=== PATIENT | male | born 1955 | race Caucasian/White ===

== ENCOUNTER 2016-08-18 15:15 | Emergency (ER) | payer OTHER, MEDICAID ==
--- NOTE | 2016-08-18 15:20 | EDPHY ---
H & P Time Seen by Provider: 08/18/16 15:17 - Medical/Surgical History Hx Asthma: No Hx Chronic Respiratory Disease: No Hx Diabetes: Yes Hx Cardiac Disease: Yes Hx Renal Disease: No Hx Cirrhosis: No Hx Alcoholism: No Hx HIV/AIDS: No Hx Splenectomy or Spleen Trauma: No Other PMH: depression, dm, ECT threapy - Social History Smoking Status: Never smoked Constitutional: Initial Vital Signs Temperature (C) 36.2 C 08/18/16 15:36 Heart Rate 72 08/18/16 15:36 Respiratory Rate 18 08/18/16 15:36 Blood Pressure 83/56 L 08/18/16 15:36 O2 Sat (%) 86 L 08/18/16 15:36 O2 Delivery Mode Nasal Cannula O2 (L/minute) 3.5 Allergies/Adverse Reactions: vancomycin Allergy (Verified 05/16/16 15:55) Fever Home Medications: Medication Instructions Recorded Carvedilol [Coreg (*)] 12.5 mg PO BIDMEAL 03/30/16 FLUoxetine [Prozac 20 MG (*)] 60 mg PO DAILY 03/30/16 Furosemide [Lasix 40 MG (*)] 40 mg PO DAILY 03/30/16 Gabapentin [Neurontin 300 MG (*)] 1,200 mg PO HS 03/30/16 Insulin Glargine [Lantus 100 45 units SC BID 03/30/16 UNITS/ML (*)] Insulin Lispro [humALOG LISPRO 100 10 unit SC TIDMEAL 03/30/16 units/ml (*)] Lisinopril [Zestril 20 mg (*)] 20 mg PO HS 03/30/16 Mirtazapine [Remeron] 15 mg PO HS 03/30/16 Omeprazole [Prilosec 20 mg] 20 mg PO HS 03/30/16 Potassium Cl [Klor-Con 20 meq (*)] 20 meq PO DAILY 03/30/16 Pregabalin [Lyrica 75mg (*)] 75 mg PO BID 03/30/16 Simvastatin [Zocor] 20 mg PO HS 03/30/16 amLODIPine BESYLATE [Norvasc 10 mg 10 mg PO DAILY 03/30/16 (*)] traZODone [traZODONE 100MG (*)] 100 mg PO HS 03/30/16 Gabapentin [Neurontin 400 MG (*)] 800 mg PO TIDMEAL #0 cap 04/02/16 oxyCODONE/APAP 5/325 [Percocet 1 - 2 tab PO Q4HRS PRN #20 tab 04/02/16 5/325 (*)] Doxycycline Hyclate [Vibramycin 100 mg PO BID #0 capsule 04/06/16 100 MG (*)] Penicillin V Potassium [Pen Vk 500 mg PO BID #0 tab 04/06/16 500mg (*)] Hydrocodone/APAP 5/325 [Gaylord 1 - 2 each PO Q4-6PRN PRN #20 tab 08/18/16 5/325] Medical Decision Making ED Course/Re-evaluation: CHIEF COMPLAINT: Back pain, "I can't hardly walk" HISTORY OF PRESENT ILLNESS: The patient is a 61 y/o male with a history of several comorbidities arriving via EMS complaining of back pain while walking worsening today. He has a history of diabetes, heart disease, kidney failure, and worsening neuropathy. Per EMS, his case hardener called 911 today because he seemed to be having cognitive difficulty and could not remember the name of his case hardener. EMS reports he has been alert and oriented with no confusion throughout their contact with him. Through my assessment he is also completely oriented. He complains today of worsening but intermittent back pain particularly with walking and states he cannot get around at home now. He is able to bear weight and denies radiculopathy, weakness, or paresthesias. REVIEW OF SYSTEMS: A 10 point review of systems was performed and is negative with the exception of the elements mentioned in the history of present illness. PHYSICAL EXAM: HR, BP, O2 Sat, RR. Temp noted General Appearance: Alert, well hydrated, appropriate, and chronically ill- appearing. Head: Atraumatic without scalp tenderness or obvious injury Eyes: Pupils equal, round, reactive to light and accommodation, EOMI, no trauma , no injection. Ears: Clear bilaterally, no perforation, normal landmarks Nose: Atraumatic, no rhinorrhea, clear. Throat: There is no erythema or exudates, no lesions, normal tonsils, mucus membranes moist. Neck: Supple, nontender, no lymphadenopathy. Respiratory: No retractions, no distress, no wheezes, and no accessory muscle use. Lungs are clear to auscultation bilaterally. Cardiovascular: Regular rate and rhythm, no murmurs, rubs, or gallops. Bilateral dorsalis pedis pulses intact. Good capillary refill all extremities. Gastrointestinal: Abdomen is soft, nontender, non-distended, no masses, no rebound, no guarding, no peritoneal signs. Musculoskeletal: Normal active ROM of all extremities, atraumatic. Multiple bilateral toe amputations with baseline neuropathy in both feet. Neurological: Alert, appropriate, and interactive. The patient has normal DTRs and non-focal cranial nerves, motor, sensory, and cerebellar exam. Skin: No rashes, good turgor, no nodules on palpation. Past medical history: Diabetes, heart disease, AL, kidney failure, neuropathy Past surgical history: Multiple toe amputations Family history: noncontributory Social history: Living at respite home waiting for admission to SNF DIAGNOSTICS/PROCEDURES/CRITICAL CARE TIME: Study: CT of the Lumbar Spine without IV contrast Indication: pain when walking Results: CT scan of the lumbar spine was obtained. The results of the study are acute L2 compression fracture. The study was read by the radiologist, Dr. Silverio. I viewed the images myself on the PACS system. The 12 lead EKG was interpreted by myself. Sinus rhythm rate 83. See hard copy and/or "tracemaster" electronic copy for interpretation. DIFFERENTIAL DIAGNOSIS: The differential diagnosis for the patient's back pain included but was not limited to musculoskeletal pain, epidural abscess, herniated disk, spinal fracture, and intra-abdominal causes including urinary system. MEDICAL DECISION MAKING: This is a chronically-ill 61 y/o male presenting with intermittent lumbar pain aggravated by walking. He a history of worsening diabetic neuropathy and is waiting for another toe amputation. His pain today is causing difficulty walking , which is the only reason he agreed to come to the ED today. His case hardener was concerned patient was confused, but patient has been alert and oriented throughout assessment. He is neurovascularly intact on exam. Plan for lumbar CT scan to rule out acute process. CT shows lumbar compression fracture without complication. Patient will be discharged with script for Gaylord and referral to neurosurgery. He is comfortable with this plan. Return precautions given. Departure - Departure Disposition: Home, Routine, Self-Care Clinical Impression: Compression fracture of L2 Condition: Good Instructions: Vertebral Compression Fracture (ED) Additional Instructions: 1. Take Gaylord as prescribed when needed for pain. 2. Follow up with Dr. Espinoza, neurosurgeon, next week. 3. Return to the ED for worsening of condition including weakness or numbness in your legs or genitals. Referrals: Patient,NotPresent [Unknown] - As per Instructions Randall Espinoza MD [Medical Doctor] - As per Instructions Prescriptions: Hydrocodone/APAP 5/325 [Gaylord 5/325] 1 - 2 each PO Q4-6PRN PRN #20 tab PRN Reason: Pain, Moderate Report Scribed for: Tom White Report Scribed by: Lacie Choudhary Date of Report: 08/18/16 Time of Report: 16:08
--- NOTE | 2016-08-18 15:28 | CPEKG ---
Heart Rate: 83 RR Interval: 723 P-R Interval: 192 QRSD Interval: 96 QT Interval: 376 QTC Interval: 442 P [place]: 41 QRS [place]: -13 T Wave [place]: 34 EKG Severity - NORMAL ECG - EKG Impression: SINUS RHYTHM Electronically Signed By: Mariela Galeana 18-Aug-2016 15:34:55
[2016-08-18 15:48] VITALS: RESP 18
[2016-08-18 16:08] VITALS: PULSE 78
[2016-08-18 17:26] VITALS: BP 101/62; TEMP 97.7; O2SAT 92
== END 2016-08-18 17:37 | disposition home or self-care (01) ==
LOC: EDUNIT#
DX: M48.56XA Collapsed vertebra, not elsewhere classified, lumbar region, initial encounter for fracture (principal); E11.9 Type 2 diabetes mellitus without complications; Z79.4 Long term (current) use of insulin

== ENCOUNTER 2016-08-19 01:06 | Inpatient (IN) | payer OTHER, MEDICAID ==
[2016-08-19] MEDS ORDERED: INSULIN GLARGINE 100 UNITS/ML SYRINGE SC ONE (03:00)
--- NOTE | 2016-08-19 06:54 | EDPHY ---
H & P Stated Complaint: sent from eps because they can't monitor sugars while looking for placement Time Seen by Provider: 08/19/16 01:19 HPI/ROS: HPI The patient presents with hyperglycemia. He has a history of diabetes and is on insulin. He normally checks his sugar several times a day. He is currently staying at the [facility] while he is awaiting placement at [facility]. He was recently admitted and discharged from [facility]. He is sent here from his mental health facility because he does not have any test strips with him to check his blood sugar and they are not able to check it for him. He denies any polyuria, polydipsia. He has not had any abdominal pain , nausea or vomiting. REVIEW OF SYSTEMS Constitutional: No fever, no chills. Eyes: No discharge. ENT: No sore throat. Cardiovascular: No chest pain, no palpitations. Respiratory: No cough, no shortness of breath. Gastrointestinal: No abdominal pain, no vomiting. Genitourinary: No hematuria. Musculoskeletal: No back pain. Skin: No rashes. Neurological: No headache. PMHx: Depression, type 2 diabetes on insulin, GERD Soc Hx: Currently awaiting placement at [facility] PHYSICAL General Appearance: Alert, no distress Eyes: Pupils equal and round no pallor or injection ENT, Mouth: Mucous membranes moist Respiratory: There are no retractions, lungs are clear to auscultation Cardiovascular: Regular rate and rhythm Gastrointestinal: Abdomen is soft and non-tender, no masses, bowel sounds normal Neurological: A&O, moves all extremities Skin: Warm and dry, no rashes Musculoskeletal: Neck is supple non tender Extremities: symmetrical, full range of motion Psychiatric: Patient is oriented X 3, there is no agitation Source: Patient, EMS Exam Limitations: No limitations - Personal History Current Tetanus/Diphtheria Vaccine: Yes Current Tetanus Diphtheria and Acellular Pertussis (TDAP): Yes - Medical/Surgical History Hx Asthma: No Hx Chronic Respiratory Disease: No Hx Diabetes: Yes Hx Cardiac Disease: Yes Hx Renal Disease: No Hx Cirrhosis: No Hx Alcoholism: No Hx HIV/AIDS: No Hx Splenectomy or Spleen Trauma: No Other PMH: depression, dm, ECT threapy, gerd - Social History Smoking Status: Never smoked Constitutional: Initial Vital Signs Temperature (C) 36.8 C 08/19/16 01:10 Heart Rate 73 08/19/16 01:10 Respiratory Rate 18 08/19/16 01:10 Blood Pressure 114/58 L 08/19/16 01:10 O2 Sat (%) 85 L 08/19/16 01:10 O2 Delivery Mode Nasal Cannula O2 (L/minute) 2 Allergies/Adverse Reactions: vancomycin Allergy (Verified 08/19/16 01:22) Fever Home Medications: Medication Instructions Recorded Carvedilol [Coreg (*)] 12.5 mg PO BIDMEAL 03/30/16 FLUoxetine [Prozac 20 MG (*)] 60 mg PO DAILY 03/30/16 Furosemide [Lasix 40 MG (*)] 40 mg PO DAILY 03/30/16 Gabapentin [Neurontin 300 MG (*)] 1,200 mg PO HS 03/30/16 Insulin Glargine [Lantus 100 45 units SC BID 03/30/16 UNITS/ML (*)] Insulin Lispro [humALOG LISPRO 100 10 unit SC TIDMEAL 03/30/16 units/ml (*)] Lisinopril [Zestril 20 mg (*)] 20 mg PO HS 03/30/16 Mirtazapine [Remeron] 15 mg PO HS 03/30/16 Omeprazole [Prilosec 20 mg] 20 mg PO HS 03/30/16 Potassium Cl [Klor-Con 20 meq (*)] 20 meq PO DAILY 03/30/16 Pregabalin [Lyrica 75mg (*)] 75 mg PO BID 03/30/16 Simvastatin [Zocor] 20 mg PO HS 03/30/16 amLODIPine BESYLATE [Norvasc 10 mg 10 mg PO DAILY 03/30/16 (*)] traZODone [traZODONE 100MG (*)] 100 mg PO HS 03/30/16 Gabapentin [Neurontin 400 MG (*)] 800 mg PO TIDMEAL #0 cap 04/02/16 oxyCODONE/APAP 5/325 [Percocet 1 - 2 tab PO Q4HRS PRN #20 tab 04/02/16 5/325 (*)] Doxycycline Hyclate [Vibramycin 100 mg PO BID #0 capsule 04/06/16 100 MG (*)] Penicillin V Potassium [Pen Vk 500 mg PO BID #0 tab 04/06/16 500mg (*)] Hydrocodone/APAP 5/325 [[place] 1 - 2 each PO Q4-6PRN PRN #20 tab 08/18/16 5/325] Medical Decision Making Differential Diagnosis: This is a 61-year-old male with history of depression and diabetes who is brought in by ambulance from [facility]. He is awaiting placement at [facility], however is without his test strips to check his blood sugar with his glucometer, thus he is sent in. He denies any acute complaints. Glucose was checked and is 171. He will be given his nightly Lantus dose of 45 units. In the morning, we plan to discharge him back to the facility with test strips. He is in agreement with this plan. - Data Points Laboratory Results: 08/19/16 02:38 POC Hgb 13.6 gm/dL L gm/dL (14.5-17.3) POC Hct 40 % L % (42.8-50.6) POC Sodium 131 mEq/L L mEq/L (134-144) POC Potassium 6.1 mEq/L H mEq/L (3.3-5.0) POC Chloride 99 mEq/L mEq/L (96-108) POC BUN 64 mg/dL H mg/dL (7-23) POC Creatinine 4.2 mg/dL H mg/dL (0.8-1.5) POC Glucose 177 mg/dL H mg/dL (70-100) Medications Given: Discontinued Medications Insulin Glargine (Lantus Syringe) 45 units SC EDNOW ONE Stop: 08/19/16 03:01 Last Admin: 08/19/16 03:18 Dose: 45 units Point of Care Test Results: 08/19/16 02:38 POC Sodium 131 L POC Potassium 6.1 H POC Chloride 99 POC BUN 64 H POC Creatinine 4.2 H POC Glucose 177 H Departure - Departure Disposition: Other Psych, Not [place] Clinical Impression: Hyperglycemia Diabetes mellitus Qualifiers: Diabetes mellitus type: type 2 Diabetes mellitus complication status: with unspecified complications Condition: Good Instructions: Diabetic Hyperglycemia (ED) Additional Instructions: Please return to the emergency room if your worse in any way.
[2016-08-19] MEDS ORDERED: NS 1,000 ML IV ONE (08:14)
[2016-08-19] MEDS ORDERED: NS 1,000 ML BAG *FOR SEPSIS ORDER SET ONLY IV ONE (08:26)
[2016-08-19 08:39] LABS: % IMMATURE GRANULYOCYTES 0.3 % (0.0-1.1); ABSOLUTE IMMATURE GRANULOCYTES 0.03 10^3/uL (0.00-0.10); ADD DIFF? NO; ADD MORPH? NO; ADD SCAN? NO; ATYPICAL LYMPHOCYTE FLAG 0 (0-99); FRAGMENT RBC FLAG 20 (0-99); HEMATOCRIT 35.5 % (40.0-51.0); HEMOGLOBIN 11.4 g/dL (13.7-17.5); LEFT SHIFT FLG 0 (0-99); LIPEMIA HEMOLYSIS FLAG 80 (0-99); MEAN CELL HEMOGLOBIN CONCENTR. 32.1 g/dL (32.4-36.7); MEAN CELL VOLUME 80.9 fL (81.5-99.8); MEAN PLATELET VOLUME 12.6 fL (8.7-11.7); PLATELET CLUMPS FLAG 0 (0-99); PLATELET COUNT 214 10^3/uL (150-400); RED BLOOD CELL COUNT 4.39 10^6/uL (4.40-6.38); RED CELL DISTRIBUTION WIDTH 16.6 % (11.5-15.2)
[2016-08-19 08:44] LABS: APTT 24.1 SEC (23.0-38.0); INR 1.1 (0.83-1.16); PROTIME(PATIENT) 14.1 SEC (12.0-15.0)
[2016-08-19 08:45] LABS: ANION GAP 13 mEq/L (8-16); BILIRUBIN,TOTAL 1.1 mg/dL (0.1-1.4); CALCIUM 8.4 mg/dL (8.5-10.4); CARBON DIOXIDE 21 mEq/l (22-31); CHLORIDE 97 mEq/L (97-110); CREATININE 4.5 mg/dL (0.7-1.3); GLOMERULAR FILTRATION RATE 13; GLUCOSE 169 mg/dL (70-100); POTASSIUM 5.4 mEq/L (3.5-5.2); SODIUM 131 mEq/L (134-144)
[2016-08-19] MEDS ORDERED: ACETAMINOPHEN 325 MG TAB PO PRN (11:25)
[2016-08-19] MEDS ORDERED: ONDANSETRON 4 MG/2 ML VIAL IVP PRN (11:25)
[2016-08-19] MEDS ORDERED: ONDANSETRON DISINTEGRATING 4 MG TAB PO PRN (11:25)
[2016-08-19] MEDS ORDERED: OXYCODONE HCL 10 MG PO PRN (11:27)
[2016-08-19] MEDS ORDERED: INSULIN LISPRO 100 UNIT/ML SC PRN (11:27)
[2016-08-19] MEDS ORDERED: NS 1,000 ML IV SCH (11:30)
[2016-08-19] MEDS ORDERED: INSULIN REGULAR HUMAN 100 UNIT/ML ONE (12:14)
--- NOTE | 2016-08-19 12:15 | GHP ---
[f rep st] HISTORY AND PHYSICAL DATE OF ADMISSION: 08/19/2016 CHIEF COMPLAINT: Hypotension and acute renal failure. HISTORY OF PRESENT ILLNESS: This is a 61-year-old male, who has a history of insulin-dependent type 2 diabetes as well as chronic osteomyelitis of right 2nd toe. He was admitted to the hospital in [facility] of last year with osteomyelitis of the right great toe, which was amputated. He has been fol lowing with Infectious Disease and Podiatry and there is talk about possibly amputating the 2nd toe. He is however not on any antibiotics currently. He also has a history of bipolar and severe depre ssion and has been in [place] for several weeks. He states there he started developing fidencio e lower extremity edema the last few days he was there. He was then sent to respite care and is isak olga lidia for admission to [facility] but they did not have any diabetic supplies and thus, he came to the emergency department. He was being monitored overnight before we could get him to [facility] but this morning his blood pressure was low in the 70s and his oxygen saturation was also a little bit low. Labs were then drawn and his creatinine was found to be 4.5. His last creatinine actuall y a week at 1.0. The patient does not endorse any problems urinating although does notice that his urine is quite dark. He has not had any nausea, vomiting, or diarrhea. He has been eating normally . He has had no new medications. He denies any over sedation from the chronic narcotics. He has n ot had any fevers or chills or dysuria. No chest pain or shortness of breath. REVIEW OF SYSTEMS: A 10-point review of systems was obtained and negative. PAST MEDICAL HISTORY: 1. Type 2 diabetes, insulin dependent. 2. Recent osteomyelitis of right great toe and current osteomyelitis of right 2nd toe. 3. Peripheral neuropathy. 4. Chronic pain on chronic pain medications. 5. Severe depression and bipolar with status post recent ECT treatment which has been very helpful. 6. History of hypertension. FAMILY HISTORY: Diabetes. SOCIAL HISTORY: Again was going to respite care after [facility], was going to go to [facility]. He did recently move here from [place]. No smoking. PHYSICAL EXAM: VITAL SIGNS: Afebrile, blood pressure when he initially presented was 114/58, has g one down to 75/43, is now back up to 100. Heart rate is 62. Oxygen saturation 80% on room air 94% on 2 L. IN GENERAL: The patient is well developed, no apparent distress. HEENT: Nonicteric sclerae . Extraocular movements intact. Moist mucous membranes. NECK: Supple. No thyromegaly. LUNGS: Good effort. Decreased breath sounds. Clear to auscultation bilaterally. CARDIOVASCULAR: Regular rate and rhythm. No murmurs, gallops. ABDOMEN: Positive bowel sounds. Soft, nontender, nondiste nded. No hepatosplenomegaly. EXTREMITIES: No clubbing, cyanosis. There is 1+ pedal edema. Right 2nd toe has some erythema at the tip but not spreading in any kind of way. NEUROLOGIC: Alert and oriented x3. Moving all 4 extremities equally. PSYCH: Normal mood and affect. LABORATORY DATA: Sodium 131, potassium 5.4, BUN 65, creatinine is 4.5. Lactic acid is normal. Whi te count 10, hemoglobin 11, platelets are 214. Chest x-ray, personally reviewed and interpreted is negative. ASSESSMENT: This is a 61-year-old male, who was admitted to the emergency department because of soc ial reasons and found to be hypotensive and in acute renal failure. PLAN: 1. Acute renal failure. I am uncertain of the cause at this time. He is on several blood pressure medicines and an WINNIE inhibitor. I wonder if his blood pressure may be a bit too low lately and he had some type of hemodynamic insult to his kidneys. He is on some narcotics and possibly could have overdosed and elevated his CPK. We will check a CPK. He has gotten almost 4 L of fluid and I am g oing to recheck his creatinine currently. Also will continue on maintenance IV fluids until the mor yeison. We will recheck his creatinine currently and see where we are at. If his creatinine is not i mproving by tomorrow, we will get Nephrology involved. Also will be getting a renal ultrasound and a urinalysis as well as urine lytes. 2. Hypotension. Pressure is now better with some fluid. We will continue to monitor. Hold his an tihypertensives. 3. Hypoxia, seems to correct quite easily with oxygen. The report hypoxia could be related to his hypotension and now it is better. Chest x-ray is negative. Again will continue to monitor this. 4. Type 2 diabetes. We will continue insulin. 5. Chronic osteomyelitis of 2nd toe. He does not seem to have spreading infection. Blood cultures are pending. We will hold off on any antibiotics. 6. Peripheral neuropathy. We will hold Neurontin until creatinine gets a little bit better. Claudette nue oxycodone as needed. 7. Depression, this appears to be better after recent ECT treatment. 8. Admission. Patient will be admitted under full admission status. Case discussed with ER physic umesh. Old records reviewed and summarized in the HPI. Chest x-ray personally reviewed and interpret ed. /[id number]/MODL
[2016-08-19] MEDS: INSULIN LISPRO 100 UNIT/ML SC SCH ×2 (12:31→18:19)
[2016-08-19 12:47] LABS: CK-MB INTERPRETATION NEGATIVE (NEGATIVE)
[2016-08-19 13:10] LABS: CREATINE KINASE-MB FRACTION 4.94 ng/mL (0-3.19)
--- NOTE | 2016-08-19 14:40 | GCON ---
[f rep st] CONSULTATION DATE OF CONSULTATION: 08/19/2016 REASON FOR ADMISSION: 1. Acute renal failure. 2. Hypotension. HISTORY OF PRESENT ILLNESS: The patient is an extremely pleasant 61-year-old white male with a long standing history of type 2 diabetes, peripheral neuropathy, chronic pain, depression, bipolar disord er, hypertension. He had a recent osteomyelitis of the right great toe that was subsequently amputa luna. He has a current osteomyelitis of right 2nd toe. He was awaiting admission to [facility] a nd began feeling unwell. He has been at e27. His blood pressure was found to be low, as well as oxygen saturations. He was transferred to the emergency room at [facility] where he was diagnosed with acute renal failure with a creatinine of approximately 4.5. He was g iven IV fluids, admitted to the intensive care unit. Currently, patient is resting comfortably. He feels somewhat better after IV hydration. PAST MEDICAL HISTORY: Again, significant for non-insulin diabetes, osteomyelitis, peripheral neurop athy, chronic pain, depression, hypertension. ALLERGIES: Vancomycin. SOCIAL HISTORY: Recent tobacco use, but none prior to this. No significant alcohol use. He recent ly moved here from [place], [place]. PHYSICAL EXAM: VITAL SIGNS: Blood pressure is in 112/62, pulse 75, respirations are 16, temperatur e 36.9, oxygen saturation 95% on 2 L. GENERAL: He is a well developed, well nourished, 61-year-old , white male who is resting comfortably in no acute distress. HEENT: Eyes are PERRLA, EOMI. . Thr oat shows no erythema or tonsillar hypertrophy. NECK: Supple. There is no cervical adenopathy. H EART: Regular rate and rhythm with a 2/6 systolic murmur at the left sternal border without radiati on. LUNGS: Diminished breath sounds, but no wheeze. ABDOMEN: Soft, nontender. Bowel sounds are present in all 4 quadrants. EXTREMITIES: There is no clubbing, cyanosis, edema. He has a right gr eat toe amputation. LABORATORIES: White count is 10, hemoglobin 11, hematocrit 35, platelet count 214. INR is 1.1. Sodium is 131, potassium is 5.4, chloride is 97, CO2 is 21, BUN is 65, creatinine 4.5, glucose is 16 9. Chest x-ray is clear. IMPRESSION: 1. Acute renal failure, the etiology of which is unclear. 2. Hypotension, improved after IV hydration. 3. Hypoxemia. 4. Diabetes. 5. Osteomyelitis of the great toe. 6. Peripheral neuropathy. 7. Depression. PLAN: 1. Patient has been admitted to the Intensive Care Unit. 2. Continue IV fluids. 3. Consider Renal consultation. 4. DVT and PE prophylaxis. 5. Stress ulcer prophylaxis. 6. Wean oxygen saturations as tolerated. 7. PT and OT. Thank you very much. /[id number]/MODL
[2016-08-19] MEDS: HEPARIN 5,000 UNIT/0.5 ML SYR SC SCH ×2 (15:28→21:47)
[2016-08-19] MEDS: GABAPENTIN 400 MG CAP PO SCH ×2 (17:47→20:27)
[2016-08-19] MEDS: OXYCODONE HCL 10 MG PO PRN (17:47)
[2016-08-19 18:26] LABS: COLOR YELLOW; LEUKOCYTE ESTERASE,URINE NEGATIVE (NEGATIVE); NITRITE,URINE NEGATIVE (NEGATIVE)
[2016-08-19] MEDS: ATORVASTATIN CALCIUM 10 MG TAB PO SCH (20:26)
[2016-08-19] MEDS: INSULIN GLARGINE 100 UNITS/ML SYRINGE SC SCH (20:27)
[2016-08-19] MEDS: MIRTAZAPINE 30 MG TAB PO SCH (20:27)
[2016-08-19] MEDS: traZODone 100 MG TAB PO SCH (20:28)
[2016-08-19] MEDS: oxyCODONE CR 30 MG TAB PO SCH (20:28)
[2016-08-19] MEDS ORDERED: NON-FORMULARY NEW DRUG (Omeprazole [Prilosec 20 Mg] 20 MG) PO SCH (21:00)
[2016-08-20] MEDS: HEPARIN 5,000 UNIT/0.5 ML SYR SC SCH ×3 (04:38→21:31)
[2016-08-20] MEDS: OXYCODONE HCL 10 MG PO PRN ×3 (04:38→16:38)
[2016-08-20] MEDS: GABAPENTIN 400 MG CAP PO SCH ×4 (04:38→21:31)
[2016-08-20 06:13] LABS: ALANINE AMINOTRANSFERASE 33 IU/L (21-72); ALBUMIN 2.9 g/dL (3.5-5.0); ALKALINE PHOSPHATASE 73 IU/L (38-126); ANION GAP 7 mEq/L (8-16); ASPARTATE AMINOTRANSFERASE 31 IU/L (17-59); BILIRUBIN,TOTAL 0.5 mg/dL (0.1-1.4); CALCIUM 7.7 mg/dL (8.5-10.4); CARBON DIOXIDE 19 mEq/l (22-31); CHLORIDE 111 mEq/L (97-110); CREATININE 1.6 mg/dL (0.7-1.3); GLOMERULAR FILTRATION RATE 44; GLUCOSE 208 mg/dL (70-100); SODIUM 137 mEq/L (134-144); TOTAL PROTEIN 6.1 g/dL (6.3-8.2)
[2016-08-20 06:51] LABS: HEMOGLOBIN 10.9 g/dL (13.7-17.5); MEAN CELL HEMOGLOBIN 25.4 pg (27.9-34.1); MEAN CELL HEMOGLOBIN CONCENTR. 32.1 g/dL (32.4-36.7); MEAN CELL VOLUME 79.3 fL (81.5-99.8); RED BLOOD CELL COUNT 4.29 10^6/uL (4.40-6.38); RED CELL DISTRIBUTION WIDTH 16.4 % (11.5-15.2)
[2016-08-20 07:06] LABS: ALANINE AMINOTRANSFERASE 38 IU/L (21-72); ALBUMIN 3.2 g/dL (3.5-5.0); ALKALINE PHOSPHATASE 78 IU/L (38-126); ANION GAP 11 mEq/L (8-16); ASPARTATE AMINOTRANSFERASE 29 IU/L (17-59); BILIRUBIN,TOTAL 0.4 mg/dL (0.1-1.4); CALCIUM 8.4 mg/dL (8.5-10.4); CARBON DIOXIDE 18 mEq/l (22-31); CHLORIDE 107 mEq/L (97-110); CREATININE 1.4 mg/dL (0.7-1.3); GLOMERULAR FILTRATION RATE 51; GLUCOSE 260 mg/dL (70-100); POTASSIUM 5.4 mEq/L (3.5-5.2); SODIUM 136 mEq/L (134-144); TOTAL PROTEIN 6.7 g/dL (6.3-8.2)
[2016-08-20] MEDS: INSULIN LISPRO 100 UNIT/ML SC SCH ×3 (07:43→16:39)
--- NOTE | 2016-08-20 08:49 | PDINTPN ---
Director Bioinformatics Progress Note Assessment/Plan: Assessment: * Acute Renal Failure-improved with hydration -follow * Type 2 DM * Peripheral Neuropathy * Osteo * HTN * Resp-stable Plan: Okay for floor TEAM PRIMARY CARE PHYSICIAN Subjective: Looks and feels better. Objective: Vital Signs Temp Pulse Resp BP Pulse Ox 37.1 C 67 14 116/55 L 98 08/20/16 07:32 08/20/16 07:32 08/20/16 07:32 08/20/16 07:32 08/20/16 07:32 Laboratory Results 08/20/16 06:45 08/20/16 06:45 08/19/16 08/20/16 08/21/16 05:59 05:59 05:59 Intake Total 8800 Output Total 3400 425 Balance 5400 -425 PT 14.1 SEC (12.0-15.0) 08/19/16 07:57 INR 1.10 (0.83-1.16) 08/19/16 07:57 Physical Exam - Physical Exam General Appearance: WD/WN, alert, no apparent distress EENT: PERRL/EOMI, normal ENT inspection Neck: non-tender, full range of motion, supple, normal inspection Respiratory: prolonged expiration, No respiratory distress, No wheezing Cardiac/Chest: normal peripheral pulses, regular rate, rhythm, systolic murmur Abdomen: normal bowel sounds, non-tender, soft Male Genitalia: deferred Rectal: deferred Skin: normal color, warm/dry Extremities: normal range of motion, non-tender, normal inspection, normal capillary refill Neuro/Psych: no motor/sensory deficits, alert, normal mood/affect, oriented x 3 ICD10 Worksheet Patient Problems: Problems Problem Status Onset Diabetes mellitus Acute Hyperglycemia Acute Cellulitis Acute Diabetic foot ulcer Acute Hyperkalemia Acute MRSA (methicillin resistant Staphylococcus aureus) Acute 03/30/16
[2016-08-20] MEDS: oxyCODONE CR 30 MG TAB PO SCH ×2 (09:34→21:33)
[2016-08-20] MEDS: PANTOPRAZOLE SODIUM 40 MG TAB PO SCH (09:34)
[2016-08-20] MEDS: INSULIN GLARGINE 100 UNITS/ML SYRINGE SC SCH ×2 (09:35→21:32)
--- NOTE | 2016-08-20 09:54 | HOSPPROG ---
Hospitalist Progress Note Assessment/Plan: 61 yo M h/o DM, chronic osteomyelitis as well as severe mental illness presenting with will and hypotension # WILL: hemodynamically mediated in the setting of hypotension and presumably hypovolemia as well as lisinopril treatment, significantly improved overnight with IVF and now near baseline. Abd US personally reviewed showing no hydronephrosis and otherwise normal appearing kidneys. # hypotension: BP improved though still slightly low, patient at baseline has been hypertensive and is chronically on amlodipine, carvedilol and lisinopril which are being held and BP off all meds still on low end. He notes he has lost significant weight but never changed his bp meds. States he has been eating/ drinking normally, denies n/v/diarrhea. Did report elevated glucose prior to ED visit possibly contributing to hypovolemia. Continue to hold bp meds for now # chronic osteomyelitis: has been an ongoing issue, s/p prior amputation and likely will need amputation of right 2nd toe, podiatry following # IDDM: continue op regimen, reportedly having higher readings PAYMENT MANAGER and this am glucose of 260, will monitor on home regimen today, may need uptitration # L2 compression fracture: noted on recent CT, not having significant sxs # bipolar/depression: with recent stay at [facility], appears to be stable currently, continue op meds # dispo: plan is for transfer to [facility] but apparently they did not have diabetic supplies and cannot take him at this time, Case mgmt involved and will help to arrange transfer, will be medically ready when they are able to accept him Patient new to my care. Old records reviewed and summarized as above. Care plan reviewed with Dr. Mackay. Subjective: no significant overnight events, patient is currently feeling better than yesterday, denies significant pain other than a bit of pain in his toe Objective: Vital Signs Temp Pulse Resp BP Pulse Ox 37.1 C 67 14 116/55 L 98 08/20/16 07:32 08/20/16 07:32 08/20/16 07:32 08/20/16 07:32 08/20/16 07:32 Laboratory Results 08/20/16 06:45 08/20/16 06:45 08/19/16 08/20/16 08/21/16 05:59 05:59 05:59 Intake Total 8800 Output Total 3400 425 Balance 5400 -425 PT 14.1 SEC (12.0-15.0) 08/19/16 07:57 INR 1.10 (0.83-1.16) 08/19/16 07:57 awake alert nad anicteric op clear rrr no mrg cta, dec bs throughout soft nt nd ble edema warm dry well perfused oriented appropriate ICD10 Worksheet Patient Problems: Problems Problem Status Onset Diabetes mellitus Acute Hyperglycemia Acute Cellulitis Acute Diabetic foot ulcer Acute Hyperkalemia Acute MRSA (methicillin resistant Staphylococcus aureus) Acute 03/30/16
[2016-08-20] MEDS: ATORVASTATIN CALCIUM 10 MG TAB PO SCH (21:30)
[2016-08-20] MEDS: traZODone 100 MG TAB PO SCH ×2 (21:32→21:34)
[2016-08-20] MEDS: MIRTAZAPINE 30 MG TAB PO SCH (21:32)
[2016-08-21] MEDS: OXYCODONE HCL 10 MG PO PRN ×4 (04:21→18:00)
[2016-08-21] MEDS: GABAPENTIN 400 MG CAP PO SCH ×3 (05:57→17:14)
[2016-08-21] MEDS: HEPARIN 5,000 UNIT/0.5 ML SYR SC SCH ×3 (05:58→20:35)
[2016-08-21] MEDS: INSULIN GLARGINE 100 UNITS/ML SYRINGE SC SCH ×2 (08:50→20:39)
[2016-08-21] MEDS: INSULIN LISPRO 100 UNIT/ML SC SCH ×3 (08:51→17:15)
[2016-08-21] MEDS: PANTOPRAZOLE SODIUM 40 MG TAB PO SCH (08:51)
[2016-08-21] MEDS: oxyCODONE CR 30 MG TAB PO SCH ×2 (08:51→20:35)
[2016-08-21] MEDS ORDERED: BENZOCAINE (ORAJEL) GEL 11.9GM TUBE TP PRN (09:50)
[2016-08-21] MEDS: AMOXICILLIN/CLAVULANATE POT 875/125 MG TAB PO SCH ×2 (11:08→20:34)
[2016-08-21 15:31] LABS: ANION GAP 11 mEq/L (8-16); CALCIUM 9.5 mg/dL (8.5-10.4); CARBON DIOXIDE 24 mEq/l (22-31); CHLORIDE 101 mEq/L (97-110); CREATININE 0.9 mg/dL (0.7-1.3); GLOMERULAR FILTRATION RATE > 60; GLUCOSE 226 mg/dL (70-100); POTASSIUM 5.4 mEq/L (3.5-5.2); SODIUM 136 mEq/L (134-144)
[2016-08-21] MEDS: CARVEDILOL 6.25 MG TAB PO SCH (17:15)
--- NOTE | 2016-08-21 19:56 | HOSPPROG ---
Hospitalist Progress Note Assessment/Plan: * ARF - improved -continue to hold lisinopril * Hypotension - due to hypovolemia * Hyperkalemia - persists -check tenzin stim test in am * Chronic osteo s/p toe amputation * Possible early facial cellulitis coming from poor dentition -oral augmentin * DM - Lantus * Bipolar/depression - recent ECT * Continuous narcotic dependency -oxycontin Subjective: c/o tooth pain with swollen, red upper lip Objective: Vital Signs Temp Pulse Resp BP Pulse Ox 36.9 C 91 14 152/76 H 95 08/21/16 19:14 08/21/16 19:14 08/21/16 19:14 08/21/16 19:14 08/21/16 19:14 Laboratory Results 08/20/16 06:45 08/21/16 15:08 08/20/16 08/21/16 08/22/16 05:59 05:59 05:59 Intake Total 8800 2400 750 Output Total 3400 5850 2175 Balance 5400 -3450 -1425 PT 14.1 SEC (12.0-15.0) 08/19/16 07:57 INR 1.10 (0.83-1.16) 08/19/16 07:57 - Physical Exam Constitutional: no apparent distress, appears nourished, not in pain Ears, Nose, Mouth, Throat: poor dentition, No oral thrush, No oral ulcer, No hard of hearing Cardiovascular: regular rate and rhythym, no murmur, rub, or gallop Respiratory: no respiratory distress, no rales or rhonchi, clear to auscultation Gastrointestinal: normoactive bowel sounds, soft, non-tender abdomen, no palpable masses Skin: warm, erythema (upper lip), No mottled, No abrasion, No induration Neurologic: AAOx3, sensation intact bilaterally Psychiatric: interacting appropriately, not anxious, not encephalopathic, thought process linear ICD10 Worksheet Patient Problems: Problems Problem Status Onset Diabetes mellitus Acute Hyperglycemia Acute Cellulitis Acute Diabetic foot ulcer Acute Hyperkalemia Acute MRSA (methicillin resistant Staphylococcus aureus) Acute 03/30/16
[2016-08-21] MEDS: ATORVASTATIN CALCIUM 10 MG TAB PO SCH (20:34)
[2016-08-21] MEDS: GABAPENTIN 300 MG CAP PO SCH (20:34)
[2016-08-21] MEDS: MIRTAZAPINE 30 MG TAB PO SCH (20:35)
[2016-08-21] MEDS: traZODone 100 MG TAB PO SCH (20:36)
[2016-08-22] MEDS: HEPARIN 5,000 UNIT/0.5 ML SYR SC SCH ×3 (05:04→22:18)
[2016-08-22] MEDS: OXYCODONE HCL 10 MG PO PRN ×5 (05:04→22:28)
[2016-08-22 05:21] LABS: % IMMATURE GRANULYOCYTES 0.1 % (0.0-1.1); ABSOLUTE IMMATURE GRANULOCYTES 0.01 10^3/uL (0.00-0.10); ADD DIFF? NO; ADD MORPH? NO; ADD SCAN? NO; ATYPICAL LYMPHOCYTE FLAG 10 (0-99); FRAGMENT RBC FLAG 20 (0-99); HEMATOCRIT 38.3 % (40.0-51.0); HEMOGLOBIN 12.4 g/dL (13.7-17.5); LEFT SHIFT FLG 0 (0-99); LIPEMIA HEMOLYSIS FLAG 80 (0-99); MEAN CELL HEMOGLOBIN CONCENTR. 32.4 g/dL (32.4-36.7); MEAN CELL VOLUME 80.3 fL (81.5-99.8); MEAN PLATELET VOLUME 11.6 fL (8.7-11.7); PLATELET CLUMPS FLAG 0 (0-99); PLATELET COUNT 200 10^3/uL (150-400); RED BLOOD CELL COUNT 4.77 10^6/uL (4.40-6.38); RED CELL DISTRIBUTION WIDTH 16.4 % (11.5-15.2)
[2016-08-22 05:36] LABS: ANION GAP 13 mEq/L (8-16); CALCIUM 9.6 mg/dL (8.5-10.4); CARBON DIOXIDE 24 mEq/l (22-31); CHLORIDE 100 mEq/L (97-110); CREATININE 0.8 mg/dL (0.7-1.3); GLOMERULAR FILTRATION RATE > 60; GLUCOSE 223 mg/dL (70-100); SODIUM 137 mEq/L (134-144)
[2016-08-22] MEDS ORDERED: COSYNTROPIN 0.25 MG/2 ML SYRINGE IVP ONE (06:00)
[2016-08-22 06:06] LABS: CORTISOL-AM 7.7 ug/dL (4.5-22.7)
[2016-08-22] MEDS: CARVEDILOL 6.25 MG TAB PO SCH ×2 (08:23→17:46)
[2016-08-22] MEDS: AMOXICILLIN/CLAVULANATE POT 875/125 MG TAB PO SCH ×2 (08:23→22:20)
[2016-08-22] MEDS: INSULIN LISPRO 100 UNIT/ML SC SCH ×3 (08:23→17:46)
[2016-08-22] MEDS: oxyCODONE CR 30 MG TAB PO SCH ×2 (08:23→22:19)
[2016-08-22] MEDS: PANTOPRAZOLE SODIUM 40 MG TAB PO SCH (08:23)
[2016-08-22] MEDS: GABAPENTIN 400 MG CAP PO SCH ×3 (09:20→17:47)
[2016-08-22] MEDS: INSULIN GLARGINE 100 UNITS/ML SYRINGE SC SCH ×2 (12:30→22:18)
--- NOTE | 2016-08-22 18:06 | HOSPPROG ---
Hospitalist Progress Note Assessment/Plan: * ARF - improved -continue to hold lisinopril * Hypotension - due to hypovolemia * Hyperkalemia - persists -hold lisinopril * Chronic osteo s/p toe amputation * Possible early facial cellulitis coming from poor dentition -improved on oral augmentin * DM - Lantus * Bipolar/depression - recent ECT * Continuous narcotic dependency -oxycontin Subjective: Lip is much better, less swollen Objective: Vital Signs Temp Pulse Resp BP Pulse Ox 36.8 C 66 17 129/66 H 92 08/22/16 15:23 08/22/16 17:46 08/22/16 15:23 08/22/16 17:46 08/22/16 15:23 Laboratory Results 08/22/16 05:04 08/22/16 05:04 08/21/16 08/22/16 08/23/16 05:59 05:59 05:59 Intake Total 2400 1050 750 Output Total 5850 3925 675 Balance -3450 -2875 75 PT 14.1 SEC (12.0-15.0) 08/19/16 07:57 INR 1.10 (0.83-1.16) 08/19/16 07:57 - Physical Exam Constitutional: no apparent distress, appears nourished, not in pain Respiratory: no respiratory distress, no rales or rhonchi, clear to auscultation Skin: no rashes or abrasions, no fluctuance, no induration Neurologic: AAOx3, sensation intact bilaterally Psychiatric: interacting appropriately, not anxious, not encephalopathic, thought process linear ICD10 Worksheet Patient Problems: Problems Problem Status Onset Diabetes mellitus Acute Hyperglycemia Acute Cellulitis Acute Diabetic foot ulcer Acute Hyperkalemia Acute MRSA (methicillin resistant Staphylococcus aureus) Acute 03/30/16
[2016-08-22] MEDS: MIRTAZAPINE 30 MG TAB PO SCH (22:19)
[2016-08-22] MEDS: ATORVASTATIN CALCIUM 10 MG TAB PO SCH (22:19)
[2016-08-22] MEDS: GABAPENTIN 300 MG CAP PO SCH (22:27)
[2016-08-23] MEDS: OXYCODONE HCL 10 MG PO PRN ×3 (04:56→13:36)
[2016-08-23] MEDS: HEPARIN 5,000 UNIT/0.5 ML SYR SC SCH ×2 (04:57→15:31)
[2016-08-23 06:19] VITALS: RESP 16
[2016-08-23] MEDS: CARVEDILOL 6.25 MG TAB PO SCH (08:23)
[2016-08-23] MEDS: GABAPENTIN 400 MG CAP PO SCH ×2 (08:23→12:47)
[2016-08-23] MEDS: oxyCODONE CR 30 MG TAB PO SCH (08:25)
[2016-08-23] MEDS: AMOXICILLIN/CLAVULANATE POT 875/125 MG TAB PO SCH (08:25)
[2016-08-23] MEDS: PANTOPRAZOLE SODIUM 40 MG TAB PO SCH (08:25)
[2016-08-23] MEDS: INSULIN LISPRO 100 UNIT/ML SC SCH ×2 (08:25→12:46)
[2016-08-23 08:26] VITALS: BP 142/91; PULSE 72
[2016-08-23 08:45] VITALS: TEMP 96.7; O2SAT 91
--- NOTE | 2016-08-23 09:10 | PDIAF ---
- Diagnosis Diagnosis: Acute renal failure, hyperkalemia, cellulitis Code Status: Full Code - Medication Management Discharge Medications: Medications to Continue on Transfer Carvedilol [Coreg (*)] 12.5 mg PO BIDMEAL 03/30/16 [Last Taken 03/30/16] Gabapentin [Neurontin 300 MG (*)] 1,200 mg PO HS 03/30/16 [Last Taken 03/29/16] Insulin Glargine [Lantus 100 UNITS/ML (*)] 45 units SC BID 03/30/16 [Last Taken 03/30/16] Insulin Lispro [humALOG LISPRO 100 units/ml (*)] 10 unit SC TIDMEAL 03/30/16 [ Last Taken 03/30/16] Omeprazole [Prilosec 20 mg] 20 mg PO HS 03/30/16 [Last Taken 03/29/16] amLODIPine BESYLATE [Norvasc 10 mg (*)] 10 mg PO DAILY 03/30/16 [Last Taken ] traZODone [traZODONE 100MG (*)] 100 mg PO HS 03/30/16 [Last Taken 03/29/16] Gabapentin [Neurontin 400 MG (*)] 800 mg PO TIDMEAL #0 cap 04/02/16 [Last Taken Unknown] Atorvastatin Calcium [Lipitor 10 mg (*)] 10 mg PO HS 08/19/16 [Last Taken Unknown] Insulin Lispro [humALOG LISPRO 100 units/ml (*)] 1 - 3 unit SC TIDMEAL PRN 08/19 [Last Taken Unknown] Mirtazapine [Remeron] 30 mg PO HS 08/19/16 [Last Taken Unknown] Oxycodone HCl [Dazidox] 10 mg PO Q4 PRN 08/19/16 [Last Taken Unknown] oxyCODONE CR [Oxycontin] 30 mg PO BID 08/19/16 [Last Taken Unknown] Amoxicillin/Clavulanate Pot [Augmentin 875 MG TAB (*)] 875 mg PO BID #10 tab [Last Taken Unknown] Color Maker Antibiotic Stop Date: 08/28/16 (Augmentin) Discharge Medications: Refer to the Discharge Home Medication list for PRN reason. - Orders Services needed: Physical Therapy, Occupational Therapy Diet Recommendation: no restrictions on diet Wound Care Instructions: Outpatient referral to dentistry for oral infection leading to facial cellulitis Additional: Stop lisinopril due to renal failure and hyperkalemia - Follow Up Care Current Providers and Referrals: NONE *PRIMARY CARE P,. [Primary Care Provider] - As per Instructions
[2016-08-23] MEDS: INSULIN GLARGINE 100 UNITS/ML SYRINGE SC SCH (09:11)
--- NOTE | 2016-08-23 17:11 | GDS ---
[f rep st] DISCHARGE SUMMARY DISCHARGE DIAGNOSES: 1. Acute renal failure. 2. Hyperkalemia. 3. Hypotension due to hypovolemia. 4. Facial cellulitis from poor dentition. 5. Chronic osteomyelitis, status post previous toe amputations. 6. Diabetes type 2. 7. Bipolar depression, status post recent ECT. 8. Continuous narcotic dependency. HISTORY: The patient is a 61-year-old male, who has recently had some unstable psychiatric issues f or which he has been at [facility] and got ECT. He more recently has been at [facility]. He was actually sent from [facility] due to them having inadequate diabetes supplies, but when he came here he was found to be hypotensive with a systolic blood pressure in the 70s and a creatinine of 4.5. He was relatively asymptomatic. He was admitted to step-down unit. His hypotension resol bradford with IV fluid. His renal failure returned back to normal with a discharge creatinine of 0.8. H is potassium has continued to run on the high side, persistently around 5, so I have not restarted h is lisinopril. I have restarted all of his other antihypertensives and he seems to have a good bloo d pressure on this regimen. He complained of swelling of his upper lip and thought that this started when he was eating popcorn with a piece of popcorn disturbing his tooth bed in his upper gum line. He has very poor dentition. He was treated with Augmentin for his facial cellulitis probably stemming from his poor dentition. He rapidly improved on the oral Augmentin. It is recommended he see a dentist in a relatively rap id basis post discharge. DISCHARGE MEDICATIONS: Please see computer record for full detailed list. New medication: Augment in 875 mg p.o. b.i.d. for 5 more days. Discontinued medications: Lisinopril 20 mg p.o. q.h.s. ADDITIONAL DISCHARGE INSTRUCTIONS: 1. Discharged to [facility] for further respite care. 2. Outpatient referral to dentistry given oral infection leading to facial cellulitis. 3. Stop lisinopril due to acute renal failure and hyperkalemia. Greater 30 minutes' time spent arranging discharge. Patient seen and examined by me on the day of d ischarge. /[id number]/MODL
== END 2016-08-23 15:30 | DRG 683 ==
LOC: EDUNIT# → OBSVTOIN 11:26 → F2N 13:31 → F1N 08-21 23:17
PROVIDERS: ADMIT Internal Medicine; ATTEND Internal Medicine
DX: N17.9 Acute kidney failure, unspecified (principal); L03.211 Cellulitis of face; G89.29 Other chronic pain; F11.20 Opioid dependence, uncomplicated; M86.671 Other chronic osteomyelitis, right ankle and foot; E87.5 Hyperkalemia; I95.9 Hypotension, unspecified; E86.1 Hypovolemia; I10 Essential (primary) hypertension; F31.9 Bipolar disorder, unspecified; E11.43 Type 2 diabetes mellitus with diabetic autonomic (poly)neuropathy; K21.9 Gastro-esophageal reflux disease without esophagitis; K08.9 Disorder of teeth and supporting structures, unspecified; Z79.4 Long term (current) use of insulin
CPT/HCPCS: 82947-QW; 97116-GP; 97161-GP; 97166-GO; 97530-GP; G8978-GP-CK; G8979-GP-CJ; G8980-GP-CI; G8987-GO-CI; G8989-GO-CI; J0834; J1815

== ENCOUNTER 2016-08-30 15:51 | Inpatient (IN) | payer OTHER, MEDICAID ==
--- NOTE | 2016-08-30 16:02 | EDPHY ---
H & P Time Seen by Provider: 08/30/16 15:51 HPI/ROS: CHIEF COMPLAINT: Right 2nd toe infection and redness HISTORY OF PRESENT ILLNESS: Patient has had previous left great and 2nd toe amputations and previous right great toe amputation. He has been on oral antibiotics but Dr. Johnson for a right 2nd toe infection including a week of oral clindamycin. Over last 24 hours redness moved proximally to the distal IP joint and he has to the emergency department for IV antibiotics and possible surgical consultation. Redness and swelling moderate. Not associated with fever or chills. Worse over the last 48 hours. Not better or worse with anything. Certainly not better with oral antibiotics. REVIEW OF SYSTEMS: Eye: no change in vision ENT: no sore throat Cardiac: no chest pain or syncope Pulmonary: no cough or SOB Abdomen: no vomiting, diarrhea, abdominal pain Musculoskeletal: Chronic right hip pain, unchanged Skin: Skin redness as noted in the HPI Neuro: no headache Constitutional: no fever : no urinary symptoms A comprehensive 10 point review of systems is otherwise negative aside from elements mentioned in the history of present illness. PAST MEDICAL HISTORY: Includes diabetes, hypertension, toe amputations as noted above, depression, neuropathy, right hip replacement, cholecystectomy. Tonsillectomy. Social history: Current resident at [facility]. General Appearance: Alert and conversant, cooperative. Eyes: No scleral icterus. ENT, Mouth: Normal mucous membranes. Respiratory: Normal respiratory effort, breath sounds equal, lungs are clear to auscultation. Cardiovascular: Regular rate and rhythm. Gastrointestinal: Abdomen is soft and non tender. Neurological: Alert and oriented x3. Normally conversant. Decreased sensation in both lower extremities which is chronic from his neuropathy. Skin: Redness and warmth of the right 2nd toe which extends distally to senior care up the toe but not into the foot. Open wound on the distal surface but no active drainage. Musculoskeletal: Previous toe amputations as described in the HPI. Psychiatric: Not agitated. Emergency Department course/MDM: Needs admission for failure of outpatient oral antibiotic therapy in a diabetic foot infection. Screening lactate, Zosyn 3.375 g, podiatry consultation and hospitalist admission. A wound culture will be sent. Patient tells me cannot take vancomycin or daptomycin because of adverse reaction. 1638: Labs and vital signs reviewed, does not have SIRS criteria at this time. MRI per Dr. Funez, she will consult for Podiatry. Smoking Status: Current some day smoker Constitutional: Initial Vital Signs Temperature (C) 36.8 C 08/30/16 16:00 Heart Rate 78 08/30/16 16:00 Respiratory Rate 20 08/30/16 16:00 Blood Pressure 150/84 H 08/30/16 16:00 O2 Sat (%) 94 08/30/16 16:00 O2 Delivery Mode Room Air Allergies/Adverse Reactions: vancomycin Allergy (Verified 08/19/16 01:22) Fever Home Medications: Medication Instructions Recorded Amoxicillin/Clavulanate Pot 875 mg PO BID #10 tab 08/23/16 [Augmentin 875 MG TAB (*)] Atorvastatin Calcium [Lipitor 10 10 mg PO HS #30 tab 08/23/16 mg (*)] Carvedilol [Coreg (*)] 12.5 mg PO BIDMEAL #120 tab 08/23/16 Gabapentin [Neurontin 300 MG (*)] 1,200 mg PO HS #120 cap 08/23/16 Gabapentin [Neurontin 400 MG (*)] 800 mg PO TIDMEAL #90 cap 08/23/16 Insulin Glargine [Lantus 100 45 units SC BID #1 vial 08/23/16 UNITS/ML (*)] Insulin Lispro [humALOG LISPRO 100 1 - 3 unit SC TIDMEAL PRN #1 vial 08/23/16 units/ml (*)] Insulin Lispro [humALOG LISPRO 100 10 unit SC TIDMEAL #1 vial 08/23/16 units/ml (*)] Mirtazapine [Remeron] 30 mg PO HS #30 tab 08/23/16 Omeprazole [Prilosec 20 mg] 20 mg PO HS #30 capsule. 08/23/16 Oxycodone HCl [Dazidox] 10 mg PO Q4 PRN #30 tablet 08/23/16 amLODIPine BESYLATE [Norvasc 10 mg 10 mg PO DAILY #30 tab 08/23/16 (*)] oxyCODONE CR [Oxycontin] 30 mg PO BID #30 tab 08/23/16 traZODone [traZODONE 100MG (*)] 100 mg PO HS #30 tab 08/23/16 Medical Decision Making Differential Diagnosis: Differential considered including but not limited to cellulitis, fasciitis, osteomyelitis, abscess of the toe. Consult/Admit Bed Type: [place] 1607 wants MRI, [facility] 1636 - Data Points Laboratory Results: Laboratory Results 08/30/16 16:05 08/30/16 16:05 08/30/16 08/30/16 08/30/16 16:05 16:05 16:05 WBC 7.40 10^3/uL 10^3/uL (3.80-9.50) RBC 4.92 10^6/uL 10^6/uL (4.40-6.38) Hgb 12.5 g/dL L g/dL (13.7-17.5) Hct 38.6 % L % (40.0-51.0) MCV 78.5 fL L fL (81.5-99.8) MCH 25.4 pg L pg (27.9-34.1) MCHC 32.4 g/dL g/dL (32.4-36.7) RDW 15.6 % H % (11.5-15.2) Plt Count 215 10^3/uL 10^3/uL (150-400) MPV 10.9 fL fL (8.7-11.7) Neut % (Auto) 50.0 % % (39.3-74.2) Lymph % (Auto) 35.7 % % (15.0-45.0) Meade % (Auto) 9.1 % % (4.5-13.0) Eos % (Auto) 4.3 % % (0.6-7.6) Baso % (Auto) 0.5 % % (0.3-1.7) Nucleat RBC Rel Count 0.0 % % (0.0-0.2) Absolute Neuts (auto) 3.70 10^3/uL 10^3/uL (1.70-6.50) Absolute Lymphs (auto) 2.64 10^3/uL 10^3/uL (1.00-3.00) Absolute Monos (auto) 0.67 10^3/uL 10^3/uL (0.30-0.80) Absolute Eos (auto) 0.32 10^3/uL 10^3/uL (0.03-0.40) Absolute Basos (auto) 0.04 10^3/uL 10^3/uL (0.02-0.10) Absolute Nucleated RBC 0.00 10^3/uL 10^3/uL (0-0.01) Immature Gran % 0.4 % % (0.0-1.1) Immature Gran # 0.03 10^3/uL 10^3/uL (0.00-0.10) PT 12.6 SEC SEC (12.0-15.0) INR 0.95 (0.83-1.16) APTT 24.1 SEC SEC (23.0-38.0) VBG Lactic Acid Sodium 138 mEq/L mEq/L (134-144) Potassium 4.6 mEq/L mEq/L (3.5-5.2) Chloride 100 mEq/L mEq/L (97-110) Carbon Dioxide 24 mEq/l mEq/l (22-31) Anion Gap 14 mEq/L mEq/L (8-16) BUN 22 mg/dL mg/dL (7-23) Creatinine 1.1 mg/dL mg/dL (0.7-1.3) Estimated GFR > 60 Glucose 196 mg/dL H mg/dL (70-100) Calcium 9.2 mg/dL mg/dL (8.5-10.4) Total Bilirubin 0.7 mg/dL mg/dL (0.1-1.4) 08/30/16 16:05 WBC RBC Hgb Hct MCV MCH MCHC RDW Plt Count MPV Neut % (Auto) Lymph % (Auto) Meade % (Auto) Eos % (Auto) Baso % (Auto) Nucleat RBC Rel Count Absolute Neuts (auto) Absolute Lymphs (auto) Absolute Monos (auto) Absolute Eos (auto) Absolute Basos (auto) Absolute Nucleated RBC Immature Gran % Immature Gran # PT INR APTT VBG Lactic Acid 1.5 mmol/L mmol/L (0.7-2.1) Sodium Potassium Chloride Carbon Dioxide Anion Gap BUN Creatinine Estimated GFR Glucose Calcium Total Bilirubin Medications Given: Discontinued Medications Piperacillin/Tazobactam/Dextrose (Zosyn 3.375 Gm (Premix)) 50 mls @ 100 mls/hr IV EDNOW ONE PRN Reason: Protocol Stop: 08/30/16 16:32 Last Admin: 08/30/16 16:55 Dose: 50 mls Departure - Departure Disposition: [facility] Inpatient Acute Clinical Impression: Diabetic foot ulcer Condition: Fair
[2016-08-30] MEDS ORDERED: PIPERACILLIN/TAZO 3.375 GM/DEX 50 ML IV ONE (16:03)
[2016-08-30 16:19] LABS: % IMMATURE GRANULYOCYTES 0.4 % (0.0-1.1); ABSOLUTE IMMATURE GRANULOCYTES 0.03 10^3/uL (0.00-0.10); ADD DIFF? NO; ADD MORPH? NO; ADD SCAN? NO; ATYPICAL LYMPHOCYTE FLAG 10 (0-99); FRAGMENT RBC FLAG 0 (0-99); HEMATOCRIT 38.6 % (40.0-51.0); HEMOGLOBIN 12.5 g/dL (13.7-17.5); LEFT SHIFT FLG 0 (0-99); LIPEMIA HEMOLYSIS FLAG 80 (0-99); MEAN CELL HEMOGLOBIN 25.4 pg (27.9-34.1); MEAN CELL HEMOGLOBIN CONCENTR. 32.4 g/dL (32.4-36.7); MEAN CELL VOLUME 78.5 fL (81.5-99.8); MEAN PLATELET VOLUME 10.9 fL (8.7-11.7); PLATELET CLUMPS FLAG 0 (0-99); PLATELET COUNT 215 10^3/uL (150-400); RED BLOOD CELL COUNT 4.92 10^6/uL (4.40-6.38); RED CELL DISTRIBUTION WIDTH 15.6 % (11.5-15.2)
[2016-08-30 16:27] LABS: INR 0.95 (0.83-1.16); PROTIME(PATIENT) 12.6 SEC (12.0-15.0)
[2016-08-30 16:28] LABS: APTT 24.1 SEC (23.0-38.0)
[2016-08-30 16:36] LABS: ANION GAP 14 mEq/L (8-16); BILIRUBIN,TOTAL 0.7 mg/dL (0.1-1.4); CALCIUM 9.2 mg/dL (8.5-10.4); CARBON DIOXIDE 24 mEq/l (22-31); CHLORIDE 100 mEq/L (97-110); CREATININE 1.1 mg/dL (0.7-1.3); GLOMERULAR FILTRATION RATE > 60; GLUCOSE 196 mg/dL (70-100); POTASSIUM 4.6 mEq/L (3.5-5.2); SODIUM 138 mEq/L (134-144)
[2016-08-30] MEDS ORDERED: ONDANSETRON 4 MG/2 ML VIAL IVP PRN (17:54)
[2016-08-30] MEDS ORDERED: ONDANSETRON DISINTEGRATING 4 MG TAB PO PRN (17:54)
[2016-08-30] MEDS ORDERED: ACETAMINOPHEN 325 MG TAB PO PRN (17:54)
[2016-08-30] MEDS ORDERED: D50W 25 GM/50 ML SYR IVP PRN (17:56)
[2016-08-30] MEDS ORDERED: GADOBUTROL 10 ML VIAL IVP ONE (18:42)
[2016-08-30] MEDS: OXYCODONE/APAP 5/325 TAB PO PRN (20:15)
[2016-08-30] MEDS: ATORVASTATIN CALCIUM 10 MG TAB PO SCH (20:43)
[2016-08-30] MEDS: traZODone 100 MG TAB PO SCH (20:43)
[2016-08-30] MEDS: PANTOPRAZOLE SODIUM 40 MG TAB PO SCH (20:43)
[2016-08-30] MEDS: GABAPENTIN 400 MG CAP PO SCH (20:43)
--- NOTE | 2016-08-30 20:53 | GHP ---
[f rep st] HISTORY AND PHYSICAL DATE OF ADMISSION: 08/30/2016 CHIEF COMPLAINT: Toe erythema. HISTORY OF PRESENT ILLNESS: This is a 61-year-old diabetic male with a chronic 2nd right toe infect ion who presented to the emergency department from [facility] when the infection of his toe was n oted to progress past a pen line that his steel burner had made on the shaft of this toe, instructing him to present to the ED if erythema extended beyond that line. The patient reports pain from that toe and marked swelling and progression of erythema up into the dorsum of his foot, prompting his pr esentation to the emergency department. In the emergency department he denies any subjective fevers or chills. Denies nausea, vomiting, abd ominal pain. Denies chest pain. Denies shortness of breath. Denies diarrhea. Denies dysuria, hem aturia. He has noticed some mild swelling of his bilateral lower extremities recently and reports pain of hi s 2nd right toe. He has already had 3 toes amputated preceding this toe infection. PAST MEDICAL HISTORY: 1. Type 2 diabetes, insulin dependent. 2. History of osteomyelitis with multiple toe amputations. 3. Chronic peripheral neuropathy. 4. Coronary artery disease. 5. Severe depression and bipolar disorder, status post ECT. 6. Hypertension. 7. Chronic pain on continuous narcotics. SOCIAL HISTORY: Patient lives at [facility], took up smoking a year ago, but reports not being v sharifa good at it. Denies alcohol since [id number]. Denies illicit drugs or marijuana. FAMILY HISTORY: Positive for diabetes and heart disease. ADVANCED DIRECTIVES: Patient is full cor, full tube. His son would be his medical decision maker. REVIEW OF SYSTEMS: A 10-point review of systems is negative with the exception of that reported in the history of present illness. PHYSICAL EXAMINATION: VITAL SIGNS: Blood pressure is 131/70, heart rate 61, respiratory rate 18, 9 3% on room air, 36.8. GENERAL: This is a healthy appearing, nourished, middle-aged male lying flat in bed. HEENT: Notable for moist mucous membranes. Eye exam is negative for any icterus. CARDIA C: Patient is regular rate and rhythm. PULMONARY: Clear to auscultation bilaterally. GASTROINTES TINAL: Positive bowel sounds. Abdomen is soft and nontender in all 4 quadrants. MUSCULOSKELETAL: Notable for 1+ pitting lower extremity edema. Two amputations on the left foot are noted and 1 on the right great toe. NEUROLOGIC: Patient is alert and oriented x3. PSYCHIATRIC: He is pleasant a nd cooperative on interview and examination. DATA: Toe x-ray, which I personally reviewed and interpreted, shows known amputation of the great t oe with no evidence of bony abnormality. LABORATORY: White count is 7.4, hematocrit 38.6 which is baseline, platelets of 215, creatinine 1.1 , blood glucose of 196. ASSESSMENT AND PLAN: This is a 61-year-old male presenting with a diabetic foot wound. 1. Acute cellulitis and diabetic foot wound. With progression of disease there is certainly concer n for osteo and the need for possible amputation. The patient's steel burner is out of town. Dr. Ankur fournier is covering. We have initiated Zosyn per their request IV and have ordered an MRI of the foot fo r better anatomic visualization of this wound and need for possible amputation. Will additionally or kayden wound care to follow the wound on this toe as well as one on the tip of the left great toe. Blo od cultures are also ordered. We will treat with IV pain medications as needed. 2. Diabetes mellitus. We will continue patient's home regimen with our sliding scale insulin. 3. Coronary artery disease. Patient is without current chest complaints. Will continue his home m edications. 4. Chronic peripheral neuropathy. Will continue patient's gabapentin dosing. 5. Chronic pain with continuous narcotics. Will continue his outpatient dosing of long and short-a cting pain medications with additional IV as needed. 6. Depression. Will continue his home regimen. 7. Prophylaxis with Lovenox. Hold in the morning in case of surgery. DISPOSITION: Expecting greater than 2 midnights as patient is presenting with a diabetic foot wound that requires diagnostic evaluation and IV antibiotics. I have discussed the case with the emergen cy room physician. Patient will be triaged to the medical-surgical floor for IV antibiotics and car e. /[id number]/MODL
[2016-08-30] MEDS: INSULIN LISPRO 100 UNIT/ML SC SCH (21:28)
[2016-08-30] MEDS: oxyCODONE CR 30 MG TAB PO SCH (22:15)
[2016-08-30] MEDS: INSULIN GLARGINE 100 UNITS/ML SYRINGE SC SCH (22:15)
[2016-08-30] MEDS: PIPERACILLIN/TAZO 3.375 GM/DEX 50 ML IV SCH (22:16)
[2016-08-30] MEDS: MIRTAZAPINE 30 MG TAB PO SCH (22:16)
[2016-08-31] MEDS: oxyCODONE IR 15 MG TAB PO PRN ×5 (05:11→22:37)
[2016-08-31] MEDS: PIPERACILLIN/TAZO 3.375 GM/DEX 50 ML IV SCH (05:11)
[2016-08-31 05:38] LABS: % IMMATURE GRANULYOCYTES 0.2 % (0.0-1.1); ABSOLUTE IMMATURE GRANULOCYTES 0.01 10^3/uL (0.00-0.10); ADD DIFF? NO; ADD MORPH? NO; ADD SCAN? NO; ATYPICAL LYMPHOCYTE FLAG 10 (0-99); FRAGMENT RBC FLAG 0 (0-99); HEMATOCRIT 36.5 % (40.0-51.0); HEMOGLOBIN 11.7 g/dL (13.7-17.5); LEFT SHIFT FLG 0 (0-99); LIPEMIA HEMOLYSIS FLAG 80 (0-99); MEAN CELL HEMOGLOBIN 25.2 pg (27.9-34.1); MEAN CELL HEMOGLOBIN CONCENTR. 32.1 g/dL (32.4-36.7); MEAN CELL VOLUME 78.7 fL (81.5-99.8); MEAN PLATELET VOLUME 10.9 fL (8.7-11.7); PLATELET CLUMPS FLAG 0 (0-99); PLATELET COUNT 190 10^3/uL (150-400); RED BLOOD CELL COUNT 4.64 10^6/uL (4.40-6.38); RED CELL DISTRIBUTION WIDTH 15.7 % (11.5-15.2)
[2016-08-31 05:52] LABS: ANION GAP 9 mEq/L (8-16); CARBON DIOXIDE 26 mEq/l (22-31); CHLORIDE 103 mEq/L (97-110); GLOMERULAR FILTRATION RATE > 60; GLUCOSE 196 mg/dL (70-100); POTASSIUM 4.1 mEq/L (3.5-5.2); SODIUM 138 mEq/L (134-144)
--- NOTE | 2016-08-31 08:09 | SOAPPROG ---
SOAP Progress Note Assessment/Plan: Assessment: 61 year old male with DM and peripheral neuropathy and history of multiple toe amputations, admitted yesterday with a right 2nd toe wound and cellulitis. Plan: Awaiting MRI report. X-rays negative for osteomyelitis. Callus and wound tip of toe without drainage and without probe to bone. Patient currently on Zosyn. Discussed treatment options with the patient. Will consider toe amputation to be performed tomorrow morning if (+) osteomyelitis on MRI. Would recommend ID consult. 08/31/16 08:15 Subjective: Jonatan is a 61 year old male with insulin dependent DM, history or multiple toe amputations who was admitted yesterday with right 2nd toe cellulitis. He is a patient of Dr. Johnson, who is out of town currently. The erythema had extended proximally from the line marked in the office on Sunday. The patient relates to having stinging pain in the toe which is worsening. "It feels like the other toes before I had them amputated". He denies any nausea, vomiting, fever, or chills. Objective: Vital Signs Temp Pulse Resp BP Pulse Ox 36.7 C 64 18 177/82 H 95 08/31/16 08:01 08/31/16 08:01 08/31/16 08:01 08/31/16 08:01 08/31/16 08:01 Laboratory Results 08/31/16 05:15 08/31/16 05:15 08/30/16 08/31/16 09/01/16 05:59 05:59 05:59 Intake Total 365 Balance 365 PT 12.6 SEC (12.0-15.0) 08/30/16 16:05 INR 0.95 (0.83-1.16) 08/30/16 16:05 Physical Exam - Physical Exam General Appearance: alert, no apparent distress Peripheral Pulses: 2+: dorsalis-pedis (R) Skin: other (Right 2nd toe cellulitis with erythema and swelling present over the distal aspect of the toe. Hemorrhagic callus present at the tip of the toe. No drainage present. No probe to bone. ) Extremities: normal capillary refill, swelling, other (Previous great toe amputation. ) ICD10 Worksheet Patient Problems: Problems Problem Status Onset Diabetic foot ulcer Acute Cellulitis Acute Diabetes mellitus Acute Hyperglycemia Acute Hyperkalemia Acute MRSA (methicillin resistant Staphylococcus aureus) Acute 03/30/16
[2016-08-31] MEDS ORDERED: ENOXAPARIN 40 MG/0.4 ML SYR SC SCH (09:00)
[2016-08-31] MEDS: INSULIN LISPRO 100 UNIT/ML SC SCH ×3 (09:36→17:27)
[2016-08-31] MEDS: INSULIN GLARGINE 100 UNITS/ML SYRINGE SC SCH ×2 (09:37→20:41)
[2016-08-31] MEDS: GABAPENTIN 400 MG CAP PO SCH ×4 (09:38→20:40)
[2016-08-31] MEDS: CARVEDILOL 6.25 MG TAB PO SCH ×2 (09:38→18:25)
[2016-08-31] MEDS: oxyCODONE CR 30 MG TAB PO SCH ×2 (09:39→20:41)
--- NOTE | 2016-08-31 12:00 | PCMIDPN ---
Assessment/Plan: Assessment/Plan: * Osteomyelitis distal tuft of right 2nd toe with underlying diabetes mellitus and prior history of MRSA: Clinical findings and MRI consistent with osteomyelitis of the distal tuft of the right 2nd toe. Suspect amputation of distal tuft will be most definitive treatment. Have reviewed with Dr. Funez and Dr. Ohara. Responding to treatment with piperacillin/tazobactam suggesting this may be related to beta-hemolytic streptococci (prior osteomyelitis of right great toe was due to group A Streptococcus and MRSA). Culture shows gram-positive pino although suspect culture was obtained from superficial site and may not have significant utility. Will transition Zosyn to Unasyn and add oral doxycycline for MRSA activity pending amputation. * Drug allergies: Patient with significant allergic reaction to both vancomycin (fever, renal insufficiency, thrombocytopenia) and daptomycin ( pulmonary hypersensitivity). Daptomycin allergy added to medical record. Time spent, greater than 35 minutes, of which greater than half was spent in education/counseling +coordination of care related to osteomyelitis of the right 2nd toe. 08/31/16 11:56 08/31/16 12:02 Subjective: Patient well known to me from prior care and admitted for cellulitis of the right 2nd toe unresponsive to oral antibiotic therapy (likely clindamycin by description). Patient complains of tingling sensation in 2nd toe which he has experience with prior osteomyelitis in other toes. Also complains of swelling and erythema with tenderness along 2nd toe on the right. Was receiving outpatient antibiotic therapy for cellulitis and the erythema extended beyond the line demarcated previously at which point in time he was advised to go the emergency department. He has a callus/scab with bleeding over the distal tip of his toe. He does not note any drainage of purulence. No associated fevers or chills. Patient without further cough or shortness of breath. Infectious Disease is now asked to see the patient for ongoing assistance with his skin and soft tissue/possible bone infection. Objective: Vital Signs Temp Pulse Resp BP Pulse Ox 36.7 C 64 18 177/82 H 95 08/31/16 08:01 08/31/16 08:01 08/31/16 08:01 08/31/16 08:01 08/31/16 08:01 Laboratory Results 08/31/16 05:15 08/31/16 05:15 03/29/17 03/30/17 03/31/17 05:59 05:59 05:59 Intake Total 365 Balance 365 Wound culture with 2+ GPC and currently with growth of mixed cutaneous pino Blood cultures x2 pending MRI of right foot with edema in the distal tuft of the right great toe suggestive of osteomyelitis; no erosive change noted - images reviewed and interpreted by me today with Radiology Plain film without evidence of osteomyelitis - Physical Exam General Appearance: alert, no apparent distress EENT: No thrush, No conjunctival petechiae Respiratory: lungs clear, No respiratory distress Cardiac/Chest: regular rate, rhythm, No systolic murmur Extremities: inflammation (Right 2nd toe with faint erythema and sausage like appearance; scab present over tip of toe without expressible purulence; soft tissue slightly boggy to palpation; no erythema below toe present; right great toe amputation site well healed without inflammatory change) Abdomen: non-tender, No distended Skin: No embolic lesions Neuro/Psych: alert ICD10 Worksheet Patient Problems: Problems Problem Status Onset Diabetic foot ulcer Acute Cellulitis Acute Diabetes mellitus Acute Hyperglycemia Acute Hyperkalemia Acute MRSA (methicillin resistant Staphylococcus aureus) Acute 03/30/16
[2016-08-31] MEDS: DOXYCYCLINE HYCLATE 100 MG CAP/TAB PO SCH ×2 (13:04→20:40)
[2016-08-31] MEDS: AMPICILLIN/SULBACTAM 3 GM in NS 100 ML IV SCH ×3 (13:05→23:49)
--- NOTE | 2016-08-31 15:17 | HOSPPROG ---
Hospitalist Progress Note Assessment/Plan: #Right toe osteomyelitis: appreciate Dr. Funez and Dr. Kemp's consultation. Definitive treatment would be amputation. h/o MRSA in past (severe allergy to Vanc/Dapto). Cont Zosyn and Doxy now -possible surgery in AM #Uncontrolled DM: cont home glargine. Increase based on SSI usage. Will reduce evening dose if surgery in morning #Microcytic anemia: stable #CAD: BB, statin #Chronic pain: cont home meds #Chronic diabetic neuropathy: gabapentin #Severe depression/bipolar: s/p ECT #Diet: diabetic #DVT ppx: Lovenox #Disp: warrants inpt admission for IV abx, amputation Subjective: "burning pain" in right foot Objective: Vital Signs Temp Pulse Resp BP Pulse Ox 36.8 C 61 16 128/70 H 90 L 08/31/16 12:09 08/31/16 12:09 08/31/16 12:09 08/31/16 12:09 08/31/16 12:09 Laboratory Results 08/31/16 05:15 08/31/16 05:15 08/30/16 08/31/16 09/01/16 05:59 05:59 05:59 Intake Total 365 Balance 365 PT 12.6 SEC (12.0-15.0) 08/30/16 16:05 INR 0.95 (0.83-1.16) 08/30/16 16:05 - Physical Exam Constitutional: no apparent distress Eyes: PERRL Ears, Nose, Mouth, Throat: moist mucous membranes, hearing normal Cardiovascular: regular rate and rhythym Respiratory: no respiratory distress Gastrointestinal: normoactive bowel sounds Skin: other (necrosis right second toe. Several amputation of both feet) Musculoskeletal: full muscle strength Neurologic: AAOx3, CN II-XII Intact Psychiatric: interacting appropriately ICD10 Worksheet Patient Problems: Problems Problem Status Onset Diabetic foot ulcer Acute Cellulitis Acute Diabetes mellitus Acute Hyperglycemia Acute Hyperkalemia Acute MRSA (methicillin resistant Staphylococcus aureus) Acute 03/30/16
--- NOTE | 2016-08-31 19:16 | GHP ---
[f rep st] HISTORY AND PHYSICAL DATE OF ADMISSION: 08/30/2016 CHIEF COMPLAINT: Right 2nd toe infection. HISTORY OF PRESENT ILLNESS: The patient is a 61-year-old male with diabetic peripheral neuropathy, history of multiple toe amputations, and bipolar disorder who presented to the emergency department from [facility] on August 30, 2016, with an infection in his right 2nd toe, where the nurse noted that the erythema had progressed past the pen line that Dr. Johnson had made on his toe on Sunday. The patient states that the toe has been increasingly red and swollen with a tingling sensation similar to how his other toes felt when they were infected and required amputations. He would like to consider amputation of the toe due to the chronic nature of the wound and history of multiple other toe amputations. He denies any nausea, vomiting, fever, or chills. PAST MEDICAL HISTORY: 1. Type 2 diabetes mellitus, insulin dependent. 2. History of osteomyelitis with multiple toe amputations. 3. Chronic peripheral neuropathy. 4. Coronary artery disease. 5. Depression and bipolar disorder. 6. Hypertension. 7. Chronic pain on narcotics. SOCIAL HISTORY: The patient lives at [facility] and is a smoker. He denies any alcohol or illicit drugs. FAMILY HISTORY: Diabetes and heart disease. REVIEW OF SYSTEMS: The patient denies any nausea, vomiting, fever or chills. He denies any shortness of breath or chest pain. The remainder of the 10-point review of systems was negative. PHYSICAL EXAMINATION: VITAL SIGNS: Blood pressure 128/70, heart rate 61, oxygen saturation 90%, temperature 36.8 degrees Celsius. LOWER EXTREMITIES: Weakly palpable pedal pulses present bilateral feet. Right great toe is surgically absent with a small scab at the plantar distal aspect of the great toe stump. Right 2nd toe erythematous with hemorrhagic callus at the distal aspect of the distal phalanx tuft. There is no drainage and no probe to bone from this area. Swelling and cellulitis extending proximally to the 2nd toe. There is no necrosis or gangrene noted. Sensation is not intact to the foot. IMAGING: MRI: Lower extremity MRI demonstrates postoperative changes of resection of the great toe at the mid proximal phalanx without evidence for osteomyelitis at the resection site, adjacent cellulitis. No evidence for abscess. There is possible osteomyelitis of the distal phalanx of the 2nd toe. LABS: White blood cell count 6.42, hemoglobin 11.7, hematocrit 36.5, platelets 190. MICROBIOLOGY: Blood culture pending. Gram stain demonstrates 2+ gram-positive cocci. Wound culture: Mixed cutaneous pino. ASSESSMENT/PLAN: The patient is a 61-year-old male with diabetic peripheral neuropathy, history of multiple toe amputations, and bipolar disorder, who presented on August 30, with right 2nd toe cellulitis. MRI findings consistent with osteomyelitis of the distal tuft of the 2nd toe distal phalanx. He will require toe amputation for definitive treatment of the osteomyelitis and infection. This was discussed with the patient today. He will be scheduled for right 2nd toe amputation on September 01. We will have him nothing by mouth after midnight. IV antibiotics per Infectious Disease. Discussed with Dr. Kemp. /[id number]/MODL MTDDione
[2016-08-31] MEDS: PANTOPRAZOLE SODIUM 40 MG TAB PO SCH (20:40)
[2016-08-31] MEDS: traZODone 100 MG TAB PO SCH (20:40)
[2016-08-31] MEDS: ATORVASTATIN CALCIUM 10 MG TAB PO SCH (20:41)
[2016-08-31] MEDS: MIRTAZAPINE 30 MG TAB PO SCH (20:41)
[2016-09-01] MEDS: oxyCODONE IR 15 MG TAB PO PRN ×5 (02:58→22:39)
[2016-09-01] MEDS: AMPICILLIN/SULBACTAM 3 GM in NS 100 ML IV SCH ×4 (05:00→23:58)
[2016-09-01 05:32] LABS: ANION GAP 11 mEq/L (8-16); CALCIUM 8.9 mg/dL (8.5-10.4); CARBON DIOXIDE 27 mEq/l (22-31); CHLORIDE 103 mEq/L (97-110); GLOMERULAR FILTRATION RATE > 60; GLUCOSE 242 mg/dL (70-100); POTASSIUM 4.8 mEq/L (3.5-5.2); SODIUM 141 mEq/L (134-144)
[2016-09-01] MEDS: GABAPENTIN 400 MG CAP PO SCH ×4 (08:24→20:09)
[2016-09-01] MEDS: CARVEDILOL 6.25 MG TAB PO SCH ×2 (08:25→18:30)
--- NOTE | 2016-09-01 08:47 | HOSPPROG ---
Hospitalist Progress Note Assessment/Plan: #Right toe osteomyelitis: appreciate Dr. Funez and Dr. Kemp's consultation. -s/p 2nd toe amputation today. h/o MRSA in past (severe allergy to Vanc/Dapto). Cont Zosyn and Doxy for now, follow culture data #Uncontrolled DM: resume home dose of glargine since eating now. #Microcytic anemia: stable #CAD: BB, statin #Chronic pain: cont home meds #Chronic diabetic neuropathy: gabapentin #Severe depression/bipolar: s/p ECT #Diet: diabetic #DVT ppx: Lovenox tomorrow #Disp: warrants inpt admission for IV abx, amputation Subjective: underwent toe amputation today. Min pain this afternoon Objective: Vital Signs Temp Pulse Resp BP Pulse Ox 36.7 C 60 16 127/69 H 92 09/01/16 07:55 09/01/16 07:55 09/01/16 07:55 09/01/16 07:55 09/01/16 07:55 Laboratory Results 08/31/16 05:15 09/01/16 05:04 08/31/16 09/01/16 09/02/16 05:59 05:59 05:59 Intake Total 365 913 700 Output Total 1745 200 Balance 365 -832 500 PT 12.6 SEC (12.0-15.0) 08/30/16 16:05 INR 0.95 (0.83-1.16) 08/30/16 16:05 - Physical Exam Constitutional: no apparent distress, obese Eyes: PERRL Ears, Nose, Mouth, Throat: moist mucous membranes, hearing normal Cardiovascular: regular rate and rhythym, no murmur, rub, or gallop Respiratory: no respiratory distress, no rales or rhonchi Gastrointestinal: normoactive bowel sounds, soft, non-tender abdomen Skin: warm Musculoskeletal: other (right foot dressed, C/D/I ) Neurologic: AAOx3 Psychiatric: interacting appropriately ICD10 Worksheet Patient Problems: Problems Problem Status Onset Diabetic foot ulcer Acute Cellulitis Acute Diabetes mellitus Acute Hyperglycemia Acute Hyperkalemia Acute MRSA (methicillin resistant Staphylococcus aureus) Acute 03/30/16
[2016-09-01] MEDS: INSULIN GLARGINE 100 UNITS/ML SYRINGE SC SCH ×2 (09:19→20:09)
[2016-09-01] MEDS: oxyCODONE CR 30 MG TAB PO SCH ×2 (09:19→20:10)
[2016-09-01] MEDS: DOXYCYCLINE HYCLATE 100 MG CAP/TAB PO SCH ×2 (09:19→20:10)
[2016-09-01] MEDS ORDERED: BUPIVACAINE 0.5% 30 ML SDV ONE (10:19)
[2016-09-01] MEDS ORDERED: ceFAZolin 1 GM/5 ML SYR ONE (10:20)
[2016-09-01] MEDS ORDERED: LIDOCAINE 2% 5 ML SDV ONE ×2 (10:20→11:05)
[2016-09-01] MEDS ORDERED: DIAZEPAM 10 MG/2 ML SYR ONE (10:41)
[2016-09-01] MEDS: INSULIN LISPRO 100 UNIT/ML SC SCH ×3 (10:43→18:29)
[2016-09-01] MEDS ORDERED: PROPOFOL/EMULSION 500 MG/50 ML BOTTLE IV ONE ×2 (10:53→12:07)
[2016-09-01] MEDS ORDERED: fentaNYL 100 MCG/2 ML INJ ONE ×2 (10:53→12:48)
[2016-09-01] MEDS ORDERED: DIAZEPAM 10 MG/2 ML SYR IVP ONE (11:00)
[2016-09-01] MEDS ORDERED: MIDAZOLAM 2 MG/2 ML VIAL ONE (11:31)
[2016-09-01] MEDS ORDERED: RANITIDINE 50 MG/2 ML VIAL ONE (11:40)
[2016-09-01] MEDS ORDERED: PHENYLEPHRINE HCL 100 MCG/ML SYR ONE (11:45)
--- NOTE | 2016-09-01 12:49 | POSTOPPROG ---
Post Op Note Date of Operation: 09/01/16 Surgeon: Stephany Funez Anesthesiologist: Dr. Preciado Anesthesia: IV Sedation (Local anesthetic: 20 cc of 0.5% Marcaine plain.) Pre-op Diagnosis: Right 2nd toe osteomyelitis Post-op Diagnosis: Right 2nd toe osteomyelitis Indication: Osteomyelitis of right 2nd toe Procedure: Right 2nd toe amputation Inf/Abcess present in the surg proc area at time of surgery?: Yes Depth: Deep Incisional (Fascial) EBL: Minimal Complications: None Specimen(s): Right 2nd toe and proximal phalanx as the proximal margin.
--- NOTE | 2016-09-01 13:17 | GOP ---
[f rep st] OPERATIVE REPORT DATE OF OPERATION: SURGEON: Stephany Funez DPM ANESTHESIA: Dr. Preciado with monitored anesthesia care. PREOPERATIVE DIAGNOSIS: Right 2nd toe osteomyelitis of the distal phalanx. POSTOPERATIVE DIAGNOSIS: Right 2nd toe osteomyelitis of the distal phalanx. PROCEDURE PERFORMED: Right 2nd toe amputation. FINDINGS: SPECIMENS: Right 2nd toe and 2nd toe proximal phalanx as a proximal margin. ESTIMATED BLOOD LOSS: Minimal. DESCRIPTION OF PROCEDURE: Under mild sedation, the patient was brought into the operating room, aashish charlie on the operating table in supine position. Following IV sedation, local anesthesia was obtained about the right foot using 20 cc of 0.5% Marcaine plain. The foot was then scrubbed, prepped, and draped in the usual aseptic manner. A sterile pneumatic ankle tourniquet was placed about the right ankle. The foot was exsanguinated and tourniquet inflated to 225 mmHg. Attention was then directe d to the right 2nd toe where a transverse incision was made over the proximal interphalangeal joint and extended around the base of the toe. This was disarticulated at the proximal interphalangeal froilan int. Wound culture was taken from the distal aspect of the wound, which was opened before sending i t to Microbiology and Pathology. Attention was then directed back to the 2nd toe proximal phalanx, which was then disarticulated at t he 2nd metatarsophalangeal joint. It was decided to remove the entire proximal phalanx due to his h istory of multiple amputations and wound healing with the peripheral vascular disease. The wound wa s irrigated with copious sterile saline, Ancef irrigation. The proximal phalanx was sent as a proxi mal margin to Pathology. The wound edges were contoured for a nice wound closure. The subcutaneous tissue was repaired with 3-0 Vicryl. The subcuticular layer was repaired with 4-0 Monocryl and the skin with 4-0 Prolene in horizontal suture technique. The incision was dressed with Xeroform, 4 x 4 gauze, Kerlix, Roosevelt wrap. Tourniquet was deflated at 26 minutes. The patient was then transferred to the recovery room with vital signs stable. He will be transferr ed back to the floor when stable. Dressing will be left clean, dry, and intact. I will plan on williams nging it tomorrow. He can weight bear as tolerated on his foot with a postop shoe. INJECTABLES: 20 cc of 0.5% Marcaine plain. MATERIALS: No implants were placed. HEMOSTASIS: Sterile pneumatic ankle tourniquet at 225 mmHg for 26 minutes. /[id number]/MODL
--- NOTE | 2016-09-01 15:38 | HOSPPROG ---
Hospitalist Progress Note Assessment/Plan: #Right toe osteomyelitis: appreciate Dr. Funez and Dr. Kemp's consultation. -plan for 2nd toe amputation today. h/o MRSA in past (severe allergy to Vanc/ Dapto). Cont Zosyn and Doxy for now, follow culture data #Uncontrolled DM: cont home glargine. Decreased glargine dose with NPO status, will increase to home dose this evening #Microcytic anemia: stable #CAD: BB, statin #Chronic pain: cont home meds #Chronic diabetic neuropathy: gabapentin #Severe depression/bipolar: s/p ECT #Diet: diabetic #DVT ppx: Lovenox #Disp: warrants inpt admission for IV abx, amputation Subjective: underwent 2nd toe amputation today Objective: Vital Signs Temp Pulse Resp BP Pulse Ox 36.4 C 53 L 14 137/77 H 94 09/01/16 14:05 09/01/16 14:05 09/01/16 14:05 09/01/16 14:05 09/01/16 14:05 Microbiology 09/01/16 12:05 Gram Stain - Final Toe - Eswab 09/01/16 12:04 Gram Stain - Final Toe - Tissue 09/01/16 12:05 Mycobacterial Smear (MATTHIEU) - Final Toe - Eswab Mycobacterial Culture - Final Laboratory Results 08/31/16 05:15 09/01/16 05:04 08/31/16 09/01/16 09/02/16 05:59 05:59 05:59 Intake Total 863 130 8610 Output Total 1745 429 Balance 365 -832 1381 PT 12.6 SEC (12.0-15.0) 08/30/16 16:05 INR 0.95 (0.83-1.16) 08/30/16 16:05 - Physical Exam Constitutional: no apparent distress, obese Eyes: PERRL Ears, Nose, Mouth, Throat: moist mucous membranes, hearing normal Cardiovascular: regular rate and rhythym Respiratory: no respiratory distress, no rales or rhonchi Gastrointestinal: normoactive bowel sounds, soft, non-tender abdomen Genitourinary: no bladder fullness Skin: warm ICD10 Worksheet Patient Problems: Problems Problem Status Onset Diabetic foot ulcer Acute Cellulitis Acute Diabetes mellitus Acute Hyperglycemia Acute Hyperkalemia Acute MRSA (methicillin resistant Staphylococcus aureus) Acute 03/30/16
[2016-09-01] MEDS: PANTOPRAZOLE SODIUM 40 MG TAB PO SCH (20:10)
[2016-09-01] MEDS: ATORVASTATIN CALCIUM 10 MG TAB PO SCH (20:10)
[2016-09-01] MEDS: MIRTAZAPINE 30 MG TAB PO SCH (20:10)
[2016-09-01] MEDS: traZODone 100 MG TAB PO SCH (21:09)
[2016-09-02] MEDS: oxyCODONE IR 15 MG TAB PO PRN ×6 (02:32→22:41)
[2016-09-02] MEDS: AMPICILLIN/SULBACTAM 3 GM in NS 100 ML IV SCH ×3 (05:27→18:31)
[2016-09-02 05:41] LABS: ANION GAP 10 mEq/L (8-16); CALCIUM 8.8 mg/dL (8.5-10.4); CARBON DIOXIDE 22 mEq/l (22-31); CHLORIDE 104 mEq/L (97-110); CREATININE 0.8 mg/dL (0.7-1.3); GLOMERULAR FILTRATION RATE > 60; GLUCOSE 209 mg/dL (70-100); POTASSIUM 4.7 mEq/L (3.5-5.2); SODIUM 136 mEq/L (134-144)
[2016-09-02] MEDS: oxyCODONE CR 30 MG TAB PO SCH ×2 (08:48→19:47)
[2016-09-02] MEDS: CARVEDILOL 6.25 MG TAB PO SCH ×2 (08:48→17:27)
[2016-09-02] MEDS: DOXYCYCLINE HYCLATE 100 MG CAP/TAB PO SCH ×2 (08:48→19:47)
[2016-09-02] MEDS: GABAPENTIN 400 MG CAP PO SCH ×4 (08:48→19:47)
[2016-09-02] MEDS: INSULIN GLARGINE 100 UNITS/ML SYRINGE SC SCH ×2 (08:50→22:41)
[2016-09-02] MEDS: INSULIN LISPRO 100 UNIT/ML SC SCH ×3 (08:51→17:27)
--- NOTE | 2016-09-02 11:05 | HOSPPROG ---
Hospitalist Progress Note Assessment/Plan: #Right toe osteomyelitis: appreciate Dr. Funez and Dr. Kemp's consultation. -plan for 2nd toe amputation today. h/o MRSA in past (severe allergy to Vanc/ Dapto). Cont Zosyn and Doxy for now, follow culture data #Uncontrolled DM: increase glargine to 50 units BID, SSI #Microcytic anemia: stable #CAD: BB, statin #Chronic pain: cont home meds #Chronic diabetic neuropathy: gabapentin #Severe depression/bipolar: s/p ECT #Diet: diabetic #DVT ppx: restart Lovenox today #Disp: warrants inpt admission for IV abx, amputation Subjective: mild pain at ampuatation site Objective: Vital Signs Temp Pulse Resp BP Pulse Ox 36.5 C 69 18 110/70 91 L 09/02/16 07:42 09/02/16 07:42 09/02/16 07:42 09/02/16 07:42 09/02/16 07:42 Microbiology 09/01/16 12:05 Gram Stain - Final Toe - Eswab 09/01/16 12:04 Gram Stain - Final Toe - Tissue 09/01/16 12:04 Mycobacterial Smear (MATTHIEU) - Final Toe - Tissue 09/01/16 12:05 Mycobacterial Smear (MATTHIEU) - Final Toe - Eswab Mycobacterial Culture - Final Laboratory Results 08/31/16 05:15 09/02/16 05:13 09/01/16 09/02/16 09/03/16 05:59 05:59 05:59 Intake Total 913 2779 Output Total 1745 2504 450 Balance -832 275 -450 PT 12.6 SEC (12.0-15.0) 08/30/16 16:05 INR 0.95 (0.83-1.16) 08/30/16 16:05 - Physical Exam Constitutional: no apparent distress, obese Eyes: PERRL Ears, Nose, Mouth, Throat: moist mucous membranes, hearing normal Cardiovascular: regular rate and rhythym, no murmur, rub, or gallop Respiratory: no respiratory distress, no rales or rhonchi Gastrointestinal: normoactive bowel sounds, soft, non-tender abdomen Genitourinary: no bladder fullness Skin: warm Musculoskeletal: other (right foot dressed with small amount blood on dressing) Neurologic: AAOx3, CN II-XII Intact Psychiatric: interacting appropriately Lymph, Heme, Immunologic: no cervical LAD ICD10 Worksheet Patient Problems: Problems Problem Status Onset Diabetic foot ulcer Acute Cellulitis Acute Diabetes mellitus Acute Hyperglycemia Acute Hyperkalemia Acute MRSA (methicillin resistant Staphylococcus aureus) Acute 03/30/16
[2016-09-02] MEDS: ENOXAPARIN 40 MG/0.4 ML SYR SC SCH (12:24)
--- NOTE | 2016-09-02 14:07 | SOAPPROG ---
SOAP Progress Note Assessment/Plan: Assessment: 61 year old male with DM and peripheral neuropathy and history of multiple toe amputations, 1 day s/p right 2nd toe amputation for osteomyelitis. Wound culture : Mixed cutaneous pino. ID following. Patient currently on Unasyn and Doxycycline. Plan: The dressing was removed and new dry dressing applied. Will plan on daily dressing changes. ID following. Patient on Unasyn and Doxycycline. Wound culture: mixed cutaneous pino. Pathology pending. 08/31/16 08:15 09/02/16 14:12 Subjective: 61 year old male with DM peripheral neuropathy seen at bedside 1 day s/p right 2nd toe amputation. He denies any nausea, vomiting, fever, chills, SOB, chest pain, abdominal pain. Pain level 5/10. Overnight pain much more severe. Objective: Vital Signs Temp Pulse Resp BP Pulse Ox 36.5 C 82 18 110/70 92 09/02/16 07:42 09/02/16 08:50 09/02/16 07:42 09/02/16 07:42 09/02/16 08:50 Microbiology 09/01/16 12:05 Gram Stain - Final Toe - Eswab 09/01/16 12:04 Gram Stain - Final Toe - Tissue 09/01/16 12:04 Mycobacterial Smear (MATTHIEU) - Final Toe - Tissue 09/01/16 12:05 Mycobacterial Smear (MATTHIEU) - Final Toe - Eswab Mycobacterial Culture - Final Laboratory Results 08/31/16 05:15 09/02/16 05:13 09/01/16 09/02/16 09/03/16 05:59 05:59 05:59 Intake Total 913 2779 Output Total 1745 2504 800 Balance -832 275 -800 PT 12.6 SEC (12.0-15.0) 08/30/16 16:05 INR 0.95 (0.83-1.16) 08/30/16 16:05 Physical Exam - Physical Exam General Appearance: alert, no apparent distress Peripheral Pulses: 1+: dorsalis-pedis (R) Skin: normal color, other (S/P right 2nd toe amputation. Sutures intact to base of 2nd toe. Mild bleeding from incision. No necrosis. No SOI present.) Extremities: normal capillary refill, other (S/P right 2nd toe amputation. H/O right great toe amputation and left great toe and 2nd toe amputations. ) Neuro/Psych: alert, normal mood/affect ICD10 Worksheet Patient Problems: Problems Problem Status Onset Diabetic foot ulcer Acute Osteomyelitis of ankle or foot Acute Cellulitis Acute Diabetes mellitus Acute Hyperglycemia Acute Hyperkalemia Acute MRSA (methicillin resistant Staphylococcus aureus) Acute 03/30/16 - ICD10 Problem Qualifiers (1) Osteomyelitis of ankle or foot
--- NOTE | 2016-09-02 16:55 | PCMIDPN ---
Assessment/Plan: Assessment/Plan: * Osteomyelitis distal tuft of right 2nd toe with underlying diabetes mellitus and prior history of MRSA status post amputation: Operative findings noted with amputation performed including proximal phalanx. Suspect osteomyelitis has been surgically resected. Plan Unasyn and doxycycline through 09/03/2016. If all cellulitis resolved, may not require additional antibiotic therapy beyond 09/03/2016.. Follow-up bone pathology over time to assess margins. Culture showed mixed cutaneous pino currently. 09/02/16 16:51 09/02/16 16:55 09/02/16 17:12 Subjective: Patient status post amputation of right 2nd toe at MTP joint. Patient without specific complaints. Objective: Vital Signs Temp Pulse Resp BP Pulse Ox 36.5 C 82 18 110/70 92 09/02/16 07:42 09/02/16 08:50 09/02/16 07:42 09/02/16 07:42 09/02/16 08:50 Microbiology 09/01/16 12:05 Gram Stain - Final Toe - Eswab 09/01/16 12:04 Gram Stain - Final Toe - Tissue 09/01/16 12:04 Mycobacterial Smear (MATTHIEU) - Final Toe - Tissue 09/01/16 12:05 Mycobacterial Smear (MATTHIEU) - Final Toe - Eswab Mycobacterial Culture - Final Laboratory Results 08/31/16 05:15 09/02/16 05:13 09/01/16 09/02/16 09/03/16 05:59 05:59 05:59 Intake Total 913 2779 Output Total 1745 2504 1000 Balance -832 275 -1000 Unasyn # 2 Doxycycline # 2 Operative cultures with mixed cutaneous pino - Physical Exam General Appearance: alert, no apparent distress EENT: pharynx normal Respiratory: lungs clear, No respiratory distress Cardiac/Chest: regular rate, rhythm Extremities: inflammation (Dressed postoperatively post amputation) ICD10 Worksheet Patient Problems: Problems Problem Status Onset Diabetic foot ulcer Acute Osteomyelitis of ankle or foot Acute Cellulitis Acute Diabetes mellitus Acute Hyperglycemia Acute Hyperkalemia Acute MRSA (methicillin resistant Staphylococcus aureus) Acute 03/30/16
[2016-09-02] MEDS: MIRTAZAPINE 30 MG TAB PO SCH (19:46)
[2016-09-02] MEDS: ATORVASTATIN CALCIUM 10 MG TAB PO SCH ×2 (19:46→19:48)
[2016-09-02] MEDS: PANTOPRAZOLE SODIUM 40 MG TAB PO SCH (19:47)
[2016-09-02] MEDS: traZODone 100 MG TAB PO SCH (20:57)
[2016-09-03] MEDS: AMPICILLIN/SULBACTAM 3 GM in NS 100 ML IV SCH ×4 (00:10→17:57)
[2016-09-03] MEDS: oxyCODONE IR 15 MG TAB PO PRN ×5 (04:50→21:26)
[2016-09-03 05:02] LABS: ANION GAP 9 mEq/L (8-16); CALCIUM 8.7 mg/dL (8.5-10.4); CARBON DIOXIDE 24 mEq/l (22-31); CHLORIDE 105 mEq/L (97-110); CREATININE 0.9 mg/dL (0.7-1.3); GLOMERULAR FILTRATION RATE > 60; GLUCOSE 254 mg/dL (70-100); POTASSIUM 4.3 mEq/L (3.5-5.2); SODIUM 138 mEq/L (134-144)
[2016-09-03] MEDS: INSULIN LISPRO 100 UNIT/ML SC SCH ×3 (07:50→17:20)
[2016-09-03] MEDS: ENOXAPARIN 40 MG/0.4 ML SYR SC SCH (07:51)
[2016-09-03] MEDS: DOXYCYCLINE HYCLATE 100 MG CAP/TAB PO SCH ×2 (07:59→20:18)
[2016-09-03] MEDS: CARVEDILOL 6.25 MG TAB PO SCH ×2 (07:59→17:21)
[2016-09-03] MEDS: oxyCODONE CR 30 MG TAB PO SCH ×2 (07:59→20:16)
[2016-09-03] MEDS: GABAPENTIN 400 MG CAP PO SCH ×4 (07:59→20:15)
[2016-09-03] MEDS: INSULIN GLARGINE 100 UNITS/ML SYRINGE SC SCH (08:08)
[2016-09-03] MEDS ORDERED: INSULIN GLARGINE 100 UNITS/ML SYRINGE SC SCH (12:02)
--- NOTE | 2016-09-03 12:03 | HOSPPROG ---
Hospitalist Progress Note Assessment/Plan: #Right toe osteomyelitis with cellulitis: appreciate Dr. Funez and Dr. Kemp's consultation. -s/p 2nd toe amputation. MRSA in past (severe allergy to Vanc/Dapto). -wound culture with mix cutaneous pino, path pending. Cont Zosyn and Doxy through today, may not warrant abx. Will d/w Dr. Kemp. #Uncontrolled DM: improved sugars with Glargine 50 BID, still used 40U SSI in 24hr, so will increase again to 55 BID #Microcytic anemia: stable #CAD: BB, statin #Chronic pain: cont home meds #Chronic diabetic neuropathy: gabapentin #Severe depression/bipolar: s/p ECT #Diet: diabetic #DVT ppx: restart Lovenox today #Disp: warrants inpt admission for IV abx, amputation Subjective: min pain at foot Objective: Vital Signs Temp Pulse Resp BP Pulse Ox 36.7 C 71 18 133/73 H 90 L 09/03/16 08:30 09/03/16 08:30 09/03/16 08:30 09/03/16 08:30 09/03/16 08:30 Microbiology 09/01/16 12:05 Gram Stain - Final Toe - Eswab 09/01/16 12:04 Gram Stain - Final Toe - Tissue Laboratory Results 08/31/16 05:15 09/03/16 04:37 09/02/16 09/03/16 09/04/16 05:59 05:59 05:59 Intake Total 2779 2300 Output Total 2504 2950 Balance 275 -650 PT 12.6 SEC (12.0-15.0) 08/30/16 16:05 INR 0.95 (0.83-1.16) 08/30/16 16:05 - Physical Exam Constitutional: no apparent distress, obese Ears, Nose, Mouth, Throat: moist mucous membranes, hearing normal Cardiovascular: regular rate and rhythym, no murmur, rub, or gallop Respiratory: no respiratory distress, no rales or rhonchi Gastrointestinal: normoactive bowel sounds Genitourinary: no bladder fullness Skin: warm Musculoskeletal: other (right foot dressed, clean, mild blood) Neurologic: AAOx3 Psychiatric: interacting appropriately ICD10 Worksheet Patient Problems: Problems Problem Status Onset Diabetic foot ulcer Acute Osteomyelitis of ankle or foot Acute Cellulitis Acute Diabetes mellitus Acute Hyperglycemia Acute Hyperkalemia Acute MRSA (methicillin resistant Staphylococcus aureus) Acute 03/30/16
[2016-09-03] MEDS ORDERED: D50W 25 GM/50 ML SYR IVP PRN (12:34)
--- NOTE | 2016-09-03 17:23 | PCMIDPN ---
Assessment/Plan: Assessment/Plan: * Osteomyelitis distal tuft of right 2nd toe with underlying diabetes mellitus and prior history of MRSA status post amputation: Operative findings noted with amputation performed including proximal phalanx. Suspect osteomyelitis has been surgically resected. No residual cellulitis on examination. Plan Unasyn and doxycycline through today with discontinuation tomorrow. Follow-up bone pathology margins as available. 09/03/16 17:22 Subjective: Patient feels improved. Objective: Vital Signs Temp Pulse Resp BP Pulse Ox 36.6 C 58 L 18 122/66 H 97 09/03/16 16:45 09/03/16 16:45 09/03/16 16:45 09/03/16 16:45 09/03/16 16:45 Microbiology 09/01/16 12:05 Gram Stain - Final Toe - Eswab 09/01/16 12:04 Gram Stain - Final Toe - Tissue Laboratory Results 08/31/16 05:15 09/03/16 04:37 09/02/16 09/03/16 09/04/16 05:59 05:59 05:59 Intake Total 2779 2300 Output Total 2504 2950 400 Balance 275 -650 -400 Unasyn # 3 Doxycycline # 3 Cultures with growth of mixed cutaneous pino - Physical Exam General Appearance: alert, no apparent distress Extremities: inflammation (Amputation site without erythema or drainage; no residual cellulitis over foot) ICD10 Worksheet Patient Problems: Problems Problem Status Onset Diabetic foot ulcer Acute Osteomyelitis of ankle or foot Acute Cellulitis Acute Diabetes mellitus Acute Hyperglycemia Acute Hyperkalemia Acute MRSA (methicillin resistant Staphylococcus aureus) Acute 03/30/16
[2016-09-03] MEDS: traZODone 100 MG TAB PO SCH (20:16)
[2016-09-03] MEDS: ATORVASTATIN CALCIUM 10 MG TAB PO SCH (20:18)
[2016-09-03] MEDS: PANTOPRAZOLE SODIUM 40 MG TAB PO SCH (20:18)
[2016-09-03] MEDS: MIRTAZAPINE 30 MG TAB PO SCH (20:19)
[2016-09-04] MEDS: AMPICILLIN/SULBACTAM 3 GM in NS 100 ML IV SCH ×3 (00:17→12:17)
[2016-09-04] MEDS: oxyCODONE IR 15 MG TAB PO PRN ×2 (02:16→06:46)
[2016-09-04 07:53] VITALS: BP 138/74; PULSE 61; RESP 17; TEMP 98; O2SAT 93
[2016-09-04] MEDS: ENOXAPARIN 40 MG/0.4 ML SYR SC SCH (08:54)
[2016-09-04] MEDS: INSULIN LISPRO 100 UNIT/ML SC SCH ×2 (08:54→12:18)
[2016-09-04] MEDS: GABAPENTIN 400 MG CAP PO SCH ×2 (08:55→12:18)
[2016-09-04] MEDS: DOXYCYCLINE HYCLATE 100 MG CAP/TAB PO SCH (08:56)
[2016-09-04] MEDS: CARVEDILOL 6.25 MG TAB PO SCH (08:56)
[2016-09-04] MEDS: oxyCODONE CR 30 MG TAB PO SCH (08:56)
[2016-09-04] MEDS ORDERED: INSULIN GLARGINE 100 UNITS/ML SYRINGE SC SCH (09:00)
[2016-09-04] MEDS: OXYCODONE/APAP 5/325 TAB PO PRN (10:01)
[2016-09-04] MEDS ORDERED: oxyCODONE IR 15 MG TAB PO PRN (10:39)
--- NOTE | 2016-09-04 12:49 | SOAPPROG ---
SOAP Progress Note Assessment/Plan: Assessment: 61 year old male with DM and peripheral neuropathy and history of multiple toe amputations, 3 days s/p right 2nd toe amputation for osteomyelitis. Plan: The dressing was removed and new dry dressing applied. Plan for daily dressing changes at [facility]. Dr. Kemp with ID following. Patient on Unasyn and Doxycycline. Wound culture: mixed cutaneous pino. Pathology pending. Plan for discharge to [facility] today. He can weightbear as tolerated in the post op shoe. He is advised to follow up with me on at [facility] location. Call for appointment. 08/31/16 08:15 09/02/16 14:12 09/04/16 12:45 Subjective: Patient seen at bedside, ready to be discharged. He denies any nausea, vomiting , fever, or chills. Little pain in his foot. Objective: Vital Signs Temp Pulse Resp BP Pulse Ox 36.6 C 61 17 138/74 H 93 09/04/16 07:49 09/04/16 07:49 09/04/16 07:49 09/04/16 07:49 09/04/16 07:49 Microbiology 09/01/16 12:04 Gram Stain - Final Toe - Tissue 09/01/16 12:05 Gram Stain - Final Toe - Eswab Laboratory Results 08/31/16 05:15 09/03/16 04:37 09/03/16 09/04/16 09/05/16 05:59 05:59 05:59 Intake Total 2300 3000 Output Total 2950 1700 580 Balance -650 1300 -580 PT 12.6 SEC (12.0-15.0) 08/30/16 16:05 INR 0.95 (0.83-1.16) 08/30/16 16:05 - Pending Discharge Pending Discharge Within 24 Hours: Yes Pending Discharge Date: 09/04/16 Physical Exam - Physical Exam General Appearance: alert, no apparent distress Peripheral Pulses: 1+: dorsalis-pedis (R) Skin: normal color, other (Incision over 2nd metatarsal head with sutures intact. Cellulitis appears resolved. No drainage. No necrosis present. ) Extremities: normal capillary refill, swelling Neuro/Psych: alert, normal mood/affect ICD10 Worksheet Patient Problems: Problems Problem Status Onset Diabetic foot ulcer Acute Osteomyelitis of ankle or foot Acute Cellulitis Acute Diabetes mellitus Acute Hyperglycemia Acute Hyperkalemia Acute MRSA (methicillin resistant Staphylococcus aureus) Acute 03/30/16 - ICD10 Problem Qualifiers (1) Osteomyelitis of ankle or foot
--- NOTE | 2016-09-04 13:04 | PDDCSUM ---
Discharge Summary Discharge Summary: DISCHARGE SUMMARY FOLLOW-UP ITEMS: Follow-up final bone cultures through Podiatry Clinic DATE OF ADMISSION: 08/30/2016 DATE OF DISCHARGE: 09/04/2016 DISCHARGE DIAGNOSES: 1. Right 2nd digit toe osteomyelitis with cellulitis 2. Uncontrolled diabetes mellitus 3. Chronic coronary artery disease 4. Chronic pain with continuous opiate dependency CONSULTATIONS: Infectious Disease, Podiatry PROCEDURES / IMAGING: Amputation by Dr. Funez CHIEF COMPLAINT: Acute toe pain and wound SUBJECTIVE: Patient is feeling well at time of discharge, he is not expressing any increase in pain PHYSICAL EXAM ON DISCHARGE: Systolic blood pressure is 130, heart rate 60, afebrile overnight, satting well on room air, patient has a small ulcerated area on the plantar aspect of his left 1st digit and some very small fissuring along the heel without any surrounding erythema, his right foot is postoperative without any erythema LABS ON DISCHARGE: Fasting blood glucose 188 HOSPITAL COURSE BY PROBLEM: 1. Osteomyelitis and cellulitis. Right 2nd toe, requiring amputation, patient with MRSA in past but severe allergy to vancomycin and daptomycin, consequently infectious Disease recommended Unasyn and doxycycline completed through 2016. Dr. Funez has evaluated the area on the day of discharge, she reports that healing is good, she will follow up with the patient in 3 days in the office the patient should follow up with Infectious Disease thereafter. The patient will not require ongoing antibiotic therapy as the area was considered to be surgically treated. 2. Uncontrolled diabetes mellitus. Patient's Lantus has been up titrated to 60 units twice daily and has been continued on sliding scale. This should be continued to be titrated in the outpatient setting. 3. Chronic coronary artery disease. Patient was continued on his beta-eloisa, statin, aspirin. 4. Chronic pain with continuous opiate dependency. Patient has sustained release oxycodone was continued at his home dosage, his p.r.n. dosage was continued at 15 mg as needed, but I have recommended that the patient utilize between 7.5 - 15 mg as needed to prevent worsening opiate tolerance in the outpatient setting. He has also been continued on his gabapentin. DISCHARGE MEDICATIONS: Please see official discharge medication reconciliation sheet in chart , no changes to home medications other than Lantus 60 units twice daily. DISCHARGE INSTRUCTIONS: Patient should follow up with Dr. Funez this , Dr. Kemp thereafter. TIME SPENT: Greater than 30 minutes were spent on direct patient care, as well as discharge planning and preparation.
--- NOTE | 2016-09-04 13:05 | PDIAF ---
- Diagnosis Diagnosis: Osteomyelitis, uncontrolled DM Code Status: Full Code - Medication Management Discharge Medications: Medications to Continue on Transfer Atorvastatin Calcium [Lipitor 10 mg (*)] 10 mg PO HS #30 tab 08/23/16 [Last Taken 08/29/16] Carvedilol [Coreg (*)] 12.5 mg PO BIDMEAL #120 tab 08/23/16 [Last Taken 08/30/16 ] Gabapentin [Neurontin 300 MG (*)] 1,200 mg PO HS #120 cap 08/23/16 [Last Taken 08/29/16] Gabapentin [Neurontin 400 MG (*)] 800 mg PO TIDMEAL #90 cap 08/23/16 [Last Taken 08/30/16] Insulin Lispro [humALOG LISPRO 100 units/ml (*)] 1 - 3 unit SC TIDMEAL PRN #1 vial 08/23/16 [Last Taken Unknown] Mirtazapine [Remeron] 30 mg PO HS #30 tab 08/23/16 [Last Taken 08/29/16] Omeprazole [Prilosec 20 mg] 20 mg PO HS #30 capsule.dr 08/23/16 [Last Taken ] amLODIPine BESYLATE [Norvasc 10 mg (*)] 10 mg PO DAILY #30 tab 08/23/16 [Last Taken 08/30/16] oxyCODONE CR [Oxycontin] 30 mg PO BID #30 tab 08/23/16 [Last Taken 08/30/16] traZODone [traZODONE 100MG (*)] 100 mg PO HS #30 tab 08/23/16 [Last Taken ] Insulin Lispro [humALOG LISPRO 100 units/ml (*)] 5 unit SC TIDMEAL 08/30/16 [ Last Taken 08/30/16] Acetaminophen [Tylenol 325mg (*)] 650 mg PO Q4HRS PRN #0 tab 09/04/16 [Last Taken Unknown] Insulin Glargine [Lantus 100 UNITS/ML (*)] 60 units SC BID ml 09/04/16 [Last Taken Unknown] oxyCODONE IR [Oxycodone Ir (*)] 7.5 - 15 mg PO Q4 PRN #0 tab 09/04/16 [Last Taken Unknown] Mixer Wet Pour Antibiotics: NA Discharge Medications: Refer to the Discharge Home Medication list for PRN reason. PICC Care - Routine: N/A - Orders Services needed: Registered Nurse, Physical Therapy Diet Recommendation: ADA 2000 consistent carb Abebe: Not applicable Wound Care Instructions: daily dry dressing changes w/ xerform and WINNIE wrap Activity/Weight Bearing Restrictions: as tolerated on both feet - Follow Up Care Current Providers and Referrals: Geovanni Kemp MD [Medical Doctor] - follow up in 2 weeks Stephany Funez DPM [Doctor of Podiatric Medicine] - 09/07/16 (Please call to schedule appt on this date) Patient,NotPresent [Unknown] - As per Instructions
== END 2016-09-04 16:36 | DRG 617 ==
LOC: EDUNIT# → F1N 17:30
PROVIDERS: ADMIT Hospitalist; ATTEND Internal Medicine
PROC: 0Y6R0Z1 Detachment at Right 2nd Toe, High, Open Approach (ICD-10-PCS; principal; 2016-09-01 12:15)
DX: E11.69 Type 2 diabetes mellitus with other specified complication (principal); M86.9 Osteomyelitis, unspecified; L03.031 Cellulitis of right toe; E11.621 Type 2 diabetes mellitus with foot ulcer; L97.519 Non-pressure chronic ulcer of other part of right foot with unspecified severity; E11.40 Type 2 diabetes mellitus with diabetic neuropathy, unspecified; I25.10 Atherosclerotic heart disease of native coronary artery without angina pectoris; I10 Essential (primary) hypertension; G89.29 Other chronic pain; F11.20 Opioid dependence, uncomplicated; F31.9 Bipolar disorder, unspecified; Z89.411 Acquired absence of right great toe; Z89.412 Acquired absence of left great toe; Z89.422 Acquired absence of other left toe(s)
CPT/HCPCS: 96365; 97161-GP; 97165-GO; A9585; G8978-GP-CI; G8979-GP-CI; G8980-GP-CI; G8987-GO-CI; G8988-GO-CI; G8989-GO-CI; J0295; J1650; J1815; J2250; J2370; J2543; J2704; J2780; J3010

== ENCOUNTER 2017-02-08 07:39 | Inpatient (IN) | payer OTHER, MEDICAID ==
[2017-02-08] MEDS ORDERED: fentaNYL 100 MCG/2 ML INJ IVP ONE (07:49)
[2017-02-08] MEDS ORDERED: NS 1,000 ML IV ONE (07:49)
[2017-02-08] MEDS ORDERED: ONDANSETRON 4 MG/2 ML VIAL IVP ONE (07:49)
--- NOTE | 2017-02-08 07:54 | EDPHY ---
H & P Stated Complaint: Abdominal pain Time Seen by Provider: 02/08/17 07:49 HPI/ROS: CHIEF COMPLAINT: Abdominal pain, nausea HISTORY OF PRESENT ILLNESS: This patient is a 61-year-old gentleman arriving by ambulance from [facility]. The patient reports he has been nauseous for the last 3 weeks but this morning, developed an abrupt onset of generalized abdominal pain and dry heaving. He has had occasional vomiting over the last 3 weeks. Patient denies any diarrhea. Denies any fevers or chills. Denies any urinary complaints. Denies any previous abdominal surgeries. Denies any previous similar pain. Patient states the pain is "severe" and cannot provide any further characterization. He was noted to be bradycardic in route. Patient denies chest pain or shortness of breath. Denies any urinary complaints. REVIEW OF SYSTEMS: Aside from elements discussed in the HPI, a comprehensive 10-point review of systems was reviewed and is negative. PAST MEDICAL HISTORY: Type 2 diabetes, depression, hypertension. Past medical records reviewed including admission from 08/19/16 and 08/30/16 for right toe infection and hypertension/renal failure respectively. SOCIAL HISTORY: Patient currently resides at [facility]. He reports he began smoking several months ago. VITAL SIGNS Reviewed by me. 175/79, pulse of 49. GENERAL: Overweight individual, complaining of abdominal pain, dry heaving on arrival. Skin is cool to the touch. HEENT: Atraumatic. Eyes: No icterus, no injection. Mouth: Slightly dry mucous membranes. No erythema or lesions. Neck: supple with no adenopathy. LUNGS: Clear to auscultation bilaterally, no wheezes, rhonchi or rales. CARDIAC: Bradycardic rate, regular rhythm, no rubs, murmurs or gallops. ABDOMEN: Soft, no distension, no guarding. Patient indicates the pain is periumbilical and supraumbilical. Nondistended. BACK: No CVA tenderness. EXTREMITIES: No trauma. No edema. Range of motion is normal throughout. Femoral pulses 2+ on the left, 1+ on the right, dorsalis pedis and posterior tibial pulses 2+ on the left, 1+ on the right. NEURO: Alert and oriented, grossly nonfocal. SKIN: Cool to the touch. No rash. PSYCHIATRIC: Normal mentation, no agitation. - Medical/Surgical History Hx Asthma: No Hx Chronic Respiratory Disease: No Hx Diabetes: Yes Hx Cardiac Disease: Yes Hx Renal Disease: No Hx Cirrhosis: No Hx Alcoholism: No Hx HIV/AIDS: No Hx Splenectomy or Spleen Trauma: No Other PMH: depression, dm, ECT threapy, gerd - Social History Smoking Status: Current some day smoker Constitutional: Initial Vital Signs Heart Rate 50 L 02/08/17 07:45 Respiratory Rate 16 02/08/17 07:45 Blood Pressure 175/79 H 02/08/17 07:45 O2 Sat (%) 94 02/08/17 07:45 O2 Delivery Mode Room Air Allergies/Adverse Reactions: daptomycin Allergy (Severe, Verified 08/31/16 10:11) pulmonary hypersensitivity vancomycin Allergy (Verified 08/19/16 01:22) Fever Home Medications: Medication Instructions Recorded Gabapentin [Neurontin 400 MG (*)] 800 mg PO TIDMEAL #90 cap 08/23/16 Omeprazole [Prilosec 20 mg] 20 mg PO HS #30 capsule. 08/23/16 oxyCODONE CR [Oxycontin] 30 mg PO BID #30 tab 08/23/16 Atorvastatin Calcium [Lipitor 20 20 mg PO DAILY 02/08/17 mg (*)] Carvedilol [Coreg (*)] 6.25 mg PO BIDMEAL 02/08/17 Cholecalciferol Vit D3 [Vitamin D3 50,000 unit PO TU 02/08/17 (*)] Gabapentin [Neurontin 400 MG (*)] 1,200 mg PO HS 02/08/17 Herbals/Supplements -Info Only 1 ea PO DAILY 02/08/17 Insulin Aspart [novoLOG] 0 unit SC TIDMEAL PRN 02/08/17 Insulin Aspart [novoLOG] 13 unit SC TIDMEAL 02/08/17 Insulin Glargine [Lantus 100 64 unit SC BID 02/08/17 UNITS/ML (*)] Mirtazapine 30 mg PO HS 02/08/17 amLODIPine BESYLATE [Norvasc 10 mg 10 mg PO DAILY 02/08/17 (*)] oxyCODONE IR [Oxycodone Ir (*)] 15 mg PO Q6 PRN 02/08/17 Medical Decision Making - Diagnostics EKG Interpretation: The 12 lead EKG was interpreted by myself. See hard copy and/or "tracemaster" electronic copy for interpretation. Sinus bradycardia, rate 44. Borderline left axis deviation. Imaging Results: CT Abd Pelvis: Impression: 1. 9-mm hyperenhancing pancreatic mass, suspicious for neuroendocrine tumor. 2. Mild adenopathy, which could be related to metastases, lymphoproliferative disorder, or other etiology. 3. Prostatic enlargement. 4. Coronary artery atherosclerosis. 5. Degenerative change in lumbar spine with severe spinal canal narrowing at L3-L4 and L4-L5. 6. Additional findings as above. Findings discussed with Janneth Ramirez MD, 02/08/2017 at 0849 hours. Dictated By: Jesus Nava MD Imaging: Discussed imaging studies w/ fisher scallop Radiologist ED Course/Re-evaluation: Patient IV established. He received Zofran 4 mg IV and 100 mcg of fentanyl. I- STAT was obtained patient's creatinine is 0.9. Patient will be sent for CT with IV contrast. Patient's pulse is currently 42 bpm. EKG confirms sinus bradycardia, rate 44. 08:44 Labs unremarkable. The patient is requesting more pain medication. Administered 1mg IV Dilaudid. CT pending. 08:[address] Nava, radiologist. CT shows 9x6mm hyperenhancing pancreatic mass, enlarged pelvic lymph nodes. Patient still with significant pain and recurrent vomiting. Will admit for further symptomatic care and further treatment/workup as indicated. Spoke with hospitalist service. Dr. Preciado accepts admission. Differential Diagnosis: After obtaining the patients history and performing an examination, differential diagnosis considered included but was not limited to appendicitis, bowel obstruction, cholecystitis, gastritis, pancreatitis, kidney stones, urinary tract infections, metastatic disease and other causes. - Data Points Laboratory Results: Laboratory Results 02/08/17 07:40 02/08/17 07:40 Medications Given: Discontinued Medications Amlodipine Besylate (Norvasc) 10 mg PO DAILY [facility] Stop: 08/08/17 08:59 Last Admin: 02/09/17 08:31 Dose: 10 mg Atorvastatin Calcium (Lipitor) 20 mg PO DAILY [facility] Stop: 08/08/17 08:59 Last Admin: 02/09/17 08:31 Dose: 20 mg Carvedilol (Coreg) 6.25 mg PO BIDMEAL [facility]REYA Stop: 08/07/17 17:59 Last Admin: 02/09/17 08:31 Dose: 6.25 mg Enoxaparin Sodium (Lovenox) 40 mg SC DAILY [facility] Stop: 08/08/17 08:59 Last Admin: 02/09/17 08:31 Dose: 40 mg Fentanyl (Sublimaze) 100 mcg IVP EDNOW ONE Stop: 02/08/17 07:50 Last Admin: 02/08/17 07:56 Dose: 100 mcg Gabapentin (Neurontin) 800 mg PO TIDMEAL FREYA Stop: 08/07/17 17:59 Last Admin: 02/09/17 11:34 Dose: 800 mg Gabapentin (Neurontin) 1,200 mg PO HS FREYA Stop: 08/07/17 20:59 Last Admin: 02/08/17 21:00 Dose: 1,200 mg Hydromorphone HCl (Dilaudid) 1 mg IVP EDNOW ONE Stop: 02/08/17 08:44 Last Admin: 02/08/17 08:55 Dose: 1 mg Sodium Chloride (Ns) 1,000 mls @ 0 mls/hr IV EDNOW ONE; Wide Open PRN Reason: Protocol Stop: 02/08/17 07:50 Last Admin: 02/08/17 07:58 Dose: 1,000 mls Sodium Chloride (Ns) 1,000 mls @ 125 mls/hr IV CONT FREYA Stop: 08/07/17 12:14 Last Admin: 02/09/17 04:25 Dose: 1,000 mls Insulin Glargine (Lantus Syringe) 32 units SC BID FREYA Stop: 08/07/17 20:59 Last Admin: 02/09/17 08:38 Dose: Not Given Insulin Human Lispro (Humalog Lispro) 0 unit SC TIDMEAL FREYA PRN Reason: Protocol Stop: 08/07/17 17:59 Last Admin: 02/09/17 13:02 Dose: Not Given Lorazepam (Ativan Injection) 1 mg IVP ONCE ONE Stop: 02/08/17 10:51 Last Admin: 02/08/17 10:50 Dose: 1 mg Lorazepam (Ativan Injection) 0.5 - 1 mg IVP Q8HRS PRN PRN Reason: Anxiety, Unable to Take PO Stop: 08/07/17 12:03 Last Admin: 02/08/17 21:08 Dose: 1 mg Lorazepam (Ativan) 0.5 - 1 mg PO Q8HRS PRN PRN Reason: Anxiety, Able to Take PO Stop: 08/07/17 12:03 Last Admin: 02/09/17 11:34 Dose: 1 mg Mirtazapine (Remeron) 30 mg PO HS [facility] Stop: 08/07/17 20:59 Last Admin: 02/08/17 21:01 Dose: 30 mg Ondansetron HCl (Zofran) 4 mg IVP EDNOW ONE Stop: 02/08/17 07:50 Last Admin: 02/08/17 07:55 Dose: 4 mg Ondansetron HCl (Zofran) 4 mg IVP Q4HRS PRN PRN Reason: Nausea/Vomiting, Can't Take PO Stop: 08/07/17 12:03 Last Admin: 02/08/17 17:31 Dose: 4 mg Oxycodone HCl (Oxycontin) 30 mg PO BID [facility] Stop: 02/18/17 20:59 Last Admin: 02/09/17 08:30 Dose: 30 mg Oxycodone HCl (Oxycodone Ir) 5 - 10 mg PO Q3HRS PRN PRN Reason: Pain, Severe Able to Take PO Stop: 02/18/17 12:03 Last Admin: 02/09/17 15:32 Dose: 10 mg Oxycodone HCl (Oxycodone Ir) 15 mg PO Q6 PRN PRN Reason: Pain, Severe Stop: 02/18/17 12:06 Last Admin: 02/09/17 14:37 Dose: 15 mg Pantoprazole Sodium (Protonix) 40 mg PO [facility] Stop: 08/07/17 20:59 Last Admin: 02/08/17 21:02 Dose: 40 mg Promethazine HCl (Phenergan) 12.5 mg IVP EDNOW ONE Stop: 02/08/17 09:43 Last Admin: 02/08/17 09:43 Dose: 12.5 mg Promethazine HCl (Phenergan) 6.25 - 12.5 mg IVP Q6HRS PRN PRN Reason: Nausea/Vomiting, Use 2nd Stop: 08/07/17 12:03 Last Admin: 02/08/17 14:35 Dose: 12.5 mg Senna/Docusate Sodium (Senokot-S) 1 - 2 tab PO BID FREYA PRN Reason: Protocol Stop: 08/07/17 20:59 Last Admin: 02/09/17 08:30 Dose: 2 tab Departure - Departure Disposition: [facility] Inpatient Acute Clinical Impression: Abdominal pain Qualifiers: Abdominal location: periumbilical Qualified Code(s): R10.33 - Periumbilical pain Vomiting Qualifiers: Vomiting type: unspecified Vomiting Intractability: unspecified Nausea presence : with nausea Qualified Code(s): R11.2 - Nausea with vomiting, unspecified Condition: Good Report Scribed for: Janneth Ramirez Report Scribed by: Alexa Farley Date of Report: 02/08/17 Time of Report: 08:11 Physician Review and Approval Statement: 02/08/17 08:11 Portions of this note were transcribed by a medical office asst. I personally performed a history, physical exam, medical decision making, and confirmed accuracy of information the transcribed note.
[2017-02-08 07:59] LABS: % IMMATURE GRANULYOCYTES 0.4 % (0.0-1.1); ABSOLUTE IMMATURE GRANULOCYTES 0.03 10^3/uL (0.00-0.10); ADD DIFF? NO; ADD MORPH? NO; ADD SCAN? NO; ATYPICAL LYMPHOCYTE FLAG 10 (0-99); FRAGMENT RBC FLAG 20 (0-99); HEMOGLOBIN 15.1 g/dL (13.7-17.5); LEFT SHIFT FLG 0 (0-99); LIPEMIA HEMOLYSIS FLAG 80 (0-99); MEAN CELL HEMOGLOBIN 24.6 pg (27.9-34.1); MEAN CELL HEMOGLOBIN CONCENTR. 32.1 g/dL (32.4-36.7); MEAN CELL VOLUME 76.7 fL (81.5-99.8); PLATELET CLUMPS FLAG 40 (0-99); PLATELET COUNT 150 10^3/uL (150-400); RED BLOOD CELL COUNT 6.13 10^6/uL (4.40-6.38); RED CELL DISTRIBUTION WIDTH 19.8 % (11.5-15.2)
--- NOTE | 2017-02-08 08:03 | CPEKG ---
Heart Rate: 44 RR Interval: 1364 P-R Interval: 192 QRSD Interval: 102 QT Interval: 504 QTC Interval: 432 P Stewart: 48 QRS Stewart: -17 T Wave Stewart: 24 EKG Severity - OTHERWISE NORMAL ECG - EKG Impression: SINUS BRADYCARDIA EKG Impression: BORDERLINE LEFT AXIS DEVIATION Electronically Signed By: Janneth Ramirez 08-Feb-2017 15:52:31
[2017-02-08] MEDS ORDERED: IOPAMIDOL (ISOVUE-300) 100 ML BTL ONE (08:06)
[2017-02-08 08:18] LABS: ALANINE AMINOTRANSFERASE 45 IU/L (21-72); ALBUMIN 4.6 g/dL (3.5-5.0); ALKALINE PHOSPHATASE 119 IU/L (38-126); ANION GAP 15 mEq/L (8-16); ASPARTATE AMINOTRANSFERASE 40 IU/L (17-59); BILIRUBIN,TOTAL 1.1 mg/dL (0.1-1.4); BILIRUBIN-CONJUGATED 0.4 mg/dL (0.0-0.5); BILIRUBIN-UNCONJUGATED 0.7 mg/dL (0.0-1.1); CALCIUM 9.9 mg/dL (8.5-10.4); CARBON DIOXIDE 25 mEq/l (22-31); CHLORIDE 103 mEq/L (97-110); CREATININE 0.8 mg/dL (0.7-1.3); GLOMERULAR FILTRATION RATE > 60; GLUCOSE 163 mg/dL (70-100); POTASSIUM 4.5 mEq/L (3.5-5.2); SODIUM 143 mEq/L (134-144); TOTAL PROTEIN 9.1 g/dL (6.3-8.2)
[2017-02-08] MEDS ORDERED: HYDROmorphONE/DILAUDID 1 MG/ML SYR IVP ONE (08:43)
[2017-02-08 09:05] LABS: COLOR YELLOW; LEUKOCYTE ESTERASE,URINE NEGATIVE (NEGATIVE); NITRITE,URINE NEGATIVE (NEGATIVE)
[2017-02-08] MEDS ORDERED: PROMETHAZINE HCL 25 MG/ML INJ IVP ONE (09:42)
[2017-02-08] MEDS ORDERED: PROMETHAZINE HCL 25 MG/ML INJ ONE (09:42)
[2017-02-08] MEDS ORDERED: LORazepam 2 MG/ML INJ IVP ONE (10:50)
[2017-02-08] MEDS ORDERED: LORazepam 2 MG/ML INJ ONE (10:52)
[2017-02-08] MEDS ORDERED: MAGNESIUM HYDROXIDE 30 ML UDCUP PO PRN (12:04)
[2017-02-08] MEDS ORDERED: LORazepam 2 MG/ML INJ IVP PRN (12:04)
[2017-02-08] MEDS ORDERED: POLYETHYLENE GLYCOL 3350 17 GM PKT PO PRN (12:04)
[2017-02-08] MEDS ORDERED: ACETAMINOPHEN 325 MG TAB PO PRN (12:04)
[2017-02-08] MEDS ORDERED: BISACODYL 10 MG SUPP PR PRN (12:04)
[2017-02-08] MEDS ORDERED: PROMETHAZINE HCL 25 MG/ML INJ IVP PRN (12:04)
[2017-02-08] MEDS ORDERED: ONDANSETRON DISINTEGRATING 4 MG TAB PO PRN (12:04)
[2017-02-08] MEDS ORDERED: LACTULOSE 20 GM/30 ML UDCUP PO PRN (12:04)
[2017-02-08] MEDS ORDERED: HYDROmorphONE/DILAUDID 1 MG/ML SYR IVP PRN (12:04)
[2017-02-08] MEDS ORDERED: D50W 25 GM/50 ML SYR IVP PRN (12:08)
[2017-02-08] MEDS: NS 1,000 ML IV SCH ×2 (12:33→21:10)
[2017-02-08] MEDS: ONDANSETRON 4 MG/2 ML VIAL IVP PRN ×2 (12:33→17:31)
[2017-02-08] MEDS: oxyCODONE IR 15 MG TAB PO PRN ×2 (12:33→18:28)
--- NOTE | 2017-02-08 13:09 | PDGENHP ---
History and Physical - Chief Complaint n/v/abdominal pain - History of Present Illness 61 yo M with PMH of DM, HTN, chronic pain with continuous narcotic use and dependency presenting with c/o 3 weeks of n/v/abdominal pain that became severe today. He notes that pain is present in his bilateral upper quadrants without radiation and without anything that improves it other than pain medications. It is not affected by eating as far as he can tell, but is mostly constant. He has never had pain like this in the past and states he is sure that it is " something really bad." In terms of the nausea and vomiting he states this is also present day and night, wakes him from sleep and is usually clear to yellowish in appearance. He has not been eating as well due to this persistent n /v. History Information - Allergies/Home Medication List Allergies/Adverse Reactions: daptomycin Allergy (Severe, Verified 08/31/16 10:11) pulmonary hypersensitivity vancomycin Allergy (Verified 08/19/16 01:22) Fever Home Medications: Atorvastatin Calcium [Lipitor 20 mg (*)] 20 mg PO DAILY 02/08/17 [Last Taken 11/18 16:00] Carvedilol [Coreg (*)] 6.25 mg PO BIDMEAL 02/08/17 [Last Taken 02/07/17 16:00] Cholecalciferol Vit D3 [Vitamin D3 (*)] 50,000 unit PO TU 02/08/17 [Last Taken 02/07/17 11:00] Gabapentin [Neurontin 400 MG (*)] 1,200 mg PO HS 02/08/17 [Last Taken 02/07/17 21:00] Herbals/Supplements -Info Only 1 ea PO DAILY 02/08/17 [Last Taken 02/07/17 08:00 ] Insulin Aspart [novoLOG] 0 unit SC TIDMEAL PRN 02/08/17 [Last Taken 02/07/17 17: 00] Insulin Aspart [novoLOG] 13 unit SC TIDMEAL 02/08/17 [Last Taken 02/07/17 17:00] Insulin Glargine [Lantus 100 UNITS/ML (*)] 64 unit SC BID 02/08/17 [Last Taken 02/07/17 21:00] Mirtazapine 30 mg PO HS 02/08/17 [Last Taken 02/07/17 21:00] amLODIPine BESYLATE [Norvasc 10 mg (*)] 10 mg PO DAILY 02/08/17 [Last Taken 11/18 08:00] oxyCODONE IR [Oxycodone Ir (*)] 15 mg PO Q6 PRN 02/08/17 [Last Taken 02/08/17 05 :00] I have personally reviewed and updated: family history, medical history, social history, surgical history - Past Medical History diabetes type 2 (insulin dependent with associated peripheral neuropathy), hypertension, psychiatric history (depression that has been severe and required ECT in past) Additional medical history: chronic pain with continuous narcotic use and dependence - Surgical History Additional surgical history: right total hip - Family History Positive for: cancer (both parents of cancer in their 60s, liver/kidney) - Social History Smoking Status: Current some day smoker Alcohol Use: None Drug Use: Marijuana (2x per week) Review of Systems Review of Systems: ROS: 10pt was reviewed & negative except for what was stated in HPI & below Physical Exam Physical Exam: Temp Pulse Resp BP Pulse Ox 36.6 C 51 L 18 169/75 H 92 02/08/17 11:35 02/08/17 11:35 02/08/17 11:35 02/08/17 11:35 02/08/17 11:35 Constitutional: no apparent distress, appears nourished Eyes: PERRL, anicteric sclera Ears, Nose, Mouth, Throat: moist mucous membranes, hearing normal, poor dentition Cardiovascular: regular rate and rhythym, no murmur, rub, or gallop, No edema Respiratory: no respiratory distress, no rales or rhonchi, clear to auscultation Gastrointestinal: no palpable masses, tenderness (bilateral upper quadrants), No normoactive bowel sounds, No guarding, No rebound Genitourinary: no bladder tenderness Skin: warm, normal color Musculoskeletal: full muscle strength Neurologic: AAOx3 Psychiatric: interacting appropriately, not anxious, not encephalopathic Lab Data & Imaging Review 02/08/17 07:40 02/08/17 07:40 WBC 8.28 10^3/uL (3.80-9.50) 02/08/17 07:40 RBC 6.13 10^6/uL (4.40-6.38) 02/08/17 07:40 Hgb 15.1 g/dL (13.7-17.5) 02/08/17 07:40 POC Hgb 17.0 gm/dL (13.7-17.5) 02/08/17 07:39 Hct 47.0 % (40.0-51.0) 02/08/17 07:40 POC Hct 50 % (40-51) 02/08/17 07:39 MCV 76.7 fL (81.5-99.8) L 02/08/17 07:40 MCH 24.6 pg (27.9-34.1) L 02/08/17 07:40 MCHC 32.1 g/dL (32.4-36.7) L 02/08/17 07:40 RDW 19.8 % (11.5-15.2) H 02/08/17 07:40 Plt Count 150 10^3/uL (150-400) 02/08/17 07:40 MPV Not Reported 02/08/17 07:40 Neut % (Auto) 69.1 % (39.3-74.2) 02/08/17 07:40 Lymph % (Auto) 20.2 % (15.0-45.0) 02/08/17 07:40 Glenn % (Auto) 7.5 % (4.5-13.0) 02/08/17 07:40 Eos % (Auto) 2.4 % (0.6-7.6) 02/08/17 07:40 Baso % (Auto) 0.4 % (0.3-1.7) 02/08/17 07:40 Nucleat RBC Rel Count 0.0 % (0.0-0.2) 02/08/17 07:40 Absolute Neuts (auto) 5.73 10^3/uL (1.70-6.50) 02/08/17 07:40 Absolute Lymphs (auto) 1.67 10^3/uL (1.00-3.00) 02/08/17 07:40 Absolute Monos (auto) 0.62 10^3/uL (0.30-0.80) 02/08/17 07:40 Absolute Eos (auto) 0.20 10^3/uL (0.03-0.40) 02/08/17 07:40 Absolute Basos (auto) 0.03 10^3/uL (0.02-0.10) 02/08/17 07:40 Absolute Nucleated RBC 0.00 10^3/uL (0-0.01) 02/08/17 07:40 Immature Gran % 0.4 % (0.0-1.1) 02/08/17 07:40 Immature Gran # 0.03 10^3/uL (0.00-0.10) 02/08/17 07:40 POC Sodium 145 mEq/L (134-144) H 02/08/17 07:39 Sodium 143 mEq/L (134-144) 02/08/17 07:40 POC Potassium 4.1 mEq/L (3.3-5.0) 02/08/17 07:39 Potassium 4.5 mEq/L (3.5-5.2) 02/08/17 07:40 POC Chloride 104 mEq/L (97-110) 02/08/17 07:39 Chloride 103 mEq/L (97-110) 02/08/17 07:40 Carbon Dioxide 25 mEq/l (22-31) 02/08/17 07:40 Anion Gap 15 mEq/L (8-16) 02/08/17 07:40 POC BUN 7 mg/dL (7-23) 02/08/17 07:39 BUN 8 mg/dL (7-23) 02/08/17 07:40 Creatinine 0.8 mg/dL (0.7-1.3) 02/08/17 07:40 POC Creatinine 0.9 mg/dL (0.7-1.3) 02/08/17 07:39 Estimated GFR > 60 02/08/17 07:40 Glucose 163 mg/dL (70-100) H 02/08/17 07:40 POC Glucose 208 mg/dL (70-100) H 02/08/17 12:51 Calcium 9.9 mg/dL (8.5-10.4) 02/08/17 07:40 Total Bilirubin 1.1 mg/dL (0.1-1.4) 02/08/17 07:40 Conjugated Bilirubin 0.4 mg/dL (0.0-0.5) 02/08/17 07:40 Unconjugated Bilirubin 0.7 mg/dL (0.0-1.1) 02/08/17 07:40 AST 40 IU/L (17-59) 02/08/17 07:40 ALT 45 IU/L (21-72) 02/08/17 07:40 Alkaline Phosphatase 119 IU/L (38-126) 02/08/17 07:40 Troponin I < 0.012 ng/mL (0.000-0.034) 02/08/17 07:40 Total Protein 9.1 g/dL (6.3-8.2) H 02/08/17 07:40 Albumin 4.6 g/dL (3.5-5.0) 02/08/17 07:40 Lipase 65 IU/L (23-300) 02/08/17 07:40 Urine Color YELLOW 02/08/17 08:55 Urine Appearance CLEAR 02/08/17 08:55 Urine pH 7.0 (5.0-7.5) 02/08/17 08:55 Ur Specific [place] 1.018 (1.002-1.030) 02/08/17 08:55 Urine Protein 1+ (NEGATIVE) H 02/08/17 08:55 Urine Ketones TRACE (NEGATIVE) H 02/08/17 08:55 Urine Blood 2+ (NEGATIVE) H 02/08/17 08:55 Urine Nitrate NEGATIVE (NEGATIVE) 02/08/17 08:55 Urine Bilirubin NEGATIVE (NEGATIVE) 02/08/17 08:55 Urine Urobilinogen NEGATIVE EU (0.2-1.0) 02/08/17 08:55 Ur Leukocyte Esterase NEGATIVE (NEGATIVE) 02/08/17 08:55 Urine RBC 10-15 /hpf (0-3) H 02/08/17 08:55 Urine WBC 1-3 /hpf (0-3) 02/08/17 08:55 Ur Epithelial Cells TRACE /lpf (NONE-1+) 02/08/17 08:55 Urine Glucose NEGATIVE (NEGATIVE) 02/08/17 08:55 Visualized and Interpreted imaging results: Yes Interpretation: abd CT with 9mm pancreatic head mass Visualized and Interpreted EKG results: Yes EKG Interpretation: Positive for: normal sinsus rhythm EKG additional interpertation: mingo Assessment & Plan Assessment: 61 yo M pw n/v/abdominal pain and likely pancreatic mass on imaging # n/v/abdominal pain: presumed 2/2 pancreatic mass noted on imaging with labs and imaging otherwise unremarkable including LFTs and lipase. Does have hematuria on UA but hx does not sound c/w kidney stone and not noted on imaging either. Will tx with IV opiates and IV antiemetics for now, pain mgmt may be slightly more challenging in this patient with chronic opiate dependency # pancreatic mass: relatively small pancreatic head mass that per radiology appears c/w neuroendocrine tumor. Have discussed with surgery who will evaluate patient and help determine appropriate next step--EUS versus surgical biopsy likely. # DM/insulin dependent: in the past has been poorly controlled with complications of neuropathy and prior issues with diabetic wounds, last A1c of 9.2 and will recheck. Sugars have been < 200 since arrival, will decrease regular insulin dose given patient taking only minimal PO and monitor with sliding scale # HTN: will continue coreg/norvasc and monitor, thus far has been reasonably controlled # hx of severe depression: appears to be stable and euthymic currently but difficult given significant pain on arrival # HLD: continue atorvastatin # IP status, will need > 48 hours stay for eval/mgmt of above given multiple active issues requiring further evaluation and monitoring Patient new to my care. Old records reviewed and summarized as above. Care plan reviewed with Dr. Wells of general surgery.
[2017-02-08] MEDS: LORazepam 0.5 MG TAB PO PRN (15:55)
[2017-02-08] MEDS: CARVEDILOL 6.25 MG TAB PO SCH (17:30)
[2017-02-08] MEDS: GABAPENTIN 400 MG CAP PO SCH (17:30)
[2017-02-08] MEDS: oxyCODONE IR 5 MG TAB PO PRN ×2 (17:30→21:08)
[2017-02-08] MEDS: INSULIN LISPRO 100 UNIT/ML SC SCH (17:45)
[2017-02-08] MEDS ORDERED: traZODone 50 MG TAB PO PRN (18:21)
[2017-02-08] MEDS ORDERED: PANTOPRAZOLE SODIUM 40 MG TAB PO SCH (21:00)
[2017-02-08] MEDS ORDERED: GABAPENTIN 400 MG CAP PO SCH (21:00)
[2017-02-08] MEDS ORDERED: MIRTAZAPINE 30 MG TAB PO SCH (21:00)
[2017-02-08] MEDS ORDERED: NON-FORMULARY NEW DRUG (Omeprazole [Prilosec 20 Mg] 20 MG) PO SCH (21:00)
[2017-02-08] MEDS: oxyCODONE CR 30 MG TAB PO SCH (21:00)
[2017-02-08] MEDS: SENNOSIDES/DOCUSATE SODIUM TAB PO SCH (21:01)
--- NOTE | 2017-02-08 21:06 | GCON ---
[f rep st] CONSULTATION DATE OF CONSULTATION: 02/08/2017 Patient is a 61-year-old male who is on chronic pain medicines. He is admitted to the hospital today for 3 weeks' of nausea which precipitated the severe epigastric pain earlier today with massive emes is. His pain has settled down at this point, although he has had some narcotic supplementation. He denies any episodes similar to this. He has had a cholecystectomy in the past. No other major abdom inal surgery. He has had no recent trauma. He has not been drinking alcohol. I was consulted sammi patel of a finding in his pancreas on CT scan of a 9 mm hyperfunctioning nodule suggestive for pancreati c neuroendocrine tumor. PAST MEDICAL HISTORY: Includes right total hip replacement, laparoscopic cholecystectomy. He is on chronic pain medicines. He has a history of some depression, hypertension, and type 2 diabetes on in [facility]. He also has associated peripheral neuropathy. FAMILY HISTORY: Positive for multiple cancers including pancreas. REVIEW OF SYSTEMS: Reveals no other major problems on a full 10-point review of systems. He does sm juni daily and uses marijuana occasionally but denies any major cardiopulmonary symptoms at this time. ALLERGIES: Daptomycin, vancomycin. PRESENT MEDICATIONS: Lipitor, Coreg, vitamin D, oxycodone, amlodipine, insulin, Neurontin, mirtazapi ne, and Norvasc. PHYSICAL EXAMINATION: GENERAL: An alert cooperative 61-year-old male in no acute distress. VITAL S IGNS: He is afebrile. HEAD and NECK: Reveals no icterus. Pupils are normal. No oral lesions. CA RDIAC: Regular rhythm without murmurs. CHEST: Clear to auscultation and percussion. ABDOMEN: Sof t. He has some upper abdominal tenderness, which is now mild. Bowel sounds are decreased, but he thorne s no rebound or guarding. SKIN: Intact with no lesions. MUSCULOSKELETAL: Full range of motion. F ull strength. NEUROLOGIC: Physiologic. EXTREMITIES: Full range of motion, full pulses. PSYCH: Ap propriate and cooperative and oriented. IMPRESSION: Suspicious pancreatic mass. I doubt this is the cause of his nausea, vomiting, and pain at this point. It is a very small lesion with no biliary dilatation and no pancreatic duct dilatati on. His lipase is normal. His LFTs are normal. I would recommend an endoscopic ultrasound evaluati on and possible biopsy of the nodule as well as routine endoscopy for his pain. It may be worth gett ing a CA 19-9 and a CEA, although for this small mass they may not be elevated. I will follow him wi th you. /[id number]/MODL
[2017-02-08] MEDS: INSULIN GLARGINE 100 UNITS/ML SYRINGE SC SCH (21:09)
[2017-02-09] MEDS: oxyCODONE IR 15 MG TAB PO PRN ×3 (00:05→14:37)
[2017-02-09] MEDS: oxyCODONE IR 5 MG TAB PO PRN ×3 (04:25→15:32)
[2017-02-09] MEDS: NS 1,000 ML IV SCH (04:25)
[2017-02-09 05:07] LABS: % IMMATURE GRANULYOCYTES 0.2 % (0.0-1.1); ABSOLUTE IMMATURE GRANULOCYTES 0.02 10^3/uL (0.00-0.10); ADD DIFF? NO; ADD MORPH? NO; ADD SCAN? NO; ATYPICAL LYMPHOCYTE FLAG 10 (0-99); FRAGMENT RBC FLAG 20 (0-99); HEMATOCRIT 41.7 % (40.0-51.0); HEMOGLOBIN 13.4 g/dL (13.7-17.5); LEFT SHIFT FLG 0 (0-99); LIPEMIA HEMOLYSIS FLAG 80 (0-99); MEAN CELL HEMOGLOBIN 24.6 pg (27.9-34.1); MEAN CELL HEMOGLOBIN CONCENTR. 32.1 g/dL (32.4-36.7); MEAN CELL VOLUME 76.5 fL (81.5-99.8); MEAN PLATELET VOLUME 11.8 fL (8.7-11.7); PLATELET CLUMPS FLAG 10 (0-99); PLATELET COUNT 132 10^3/uL (150-400); RED BLOOD CELL COUNT 5.45 10^6/uL (4.40-6.38); RED CELL DISTRIBUTION WIDTH 19.2 % (11.5-15.2)
[2017-02-09 05:28] LABS: ALANINE AMINOTRANSFERASE 31 IU/L (21-72); ALBUMIN 3.7 g/dL (3.5-5.0); ALKALINE PHOSPHATASE 82 IU/L (38-126); ANION GAP 12 mEq/L (8-16); ASPARTATE AMINOTRANSFERASE 26 IU/L (17-59); BILIRUBIN,TOTAL 1.2 mg/dL (0.1-1.4); CALCIUM 8.5 mg/dL (8.5-10.4); CARBON DIOXIDE 27 mEq/l (22-31); CHLORIDE 103 mEq/L (97-110); CREATININE 0.8 mg/dL (0.7-1.3); GLOMERULAR FILTRATION RATE > 60; GLUCOSE 118 mg/dL (70-100); POTASSIUM 3.9 mEq/L (3.5-5.2); SODIUM 142 mEq/L (134-144); TOTAL PROTEIN 7.4 g/dL (6.3-8.2)
[2017-02-09] MEDS: GABAPENTIN 400 MG CAP PO SCH ×2 (08:30→11:34)
[2017-02-09] MEDS: SENNOSIDES/DOCUSATE SODIUM TAB PO SCH (08:30)
[2017-02-09] MEDS: oxyCODONE CR 30 MG TAB PO SCH (08:30)
[2017-02-09] MEDS: CARVEDILOL 6.25 MG TAB PO SCH (08:31)
[2017-02-09] MEDS: INSULIN LISPRO 100 UNIT/ML SC SCH ×2 (08:37→13:02)
[2017-02-09] MEDS: INSULIN GLARGINE 100 UNITS/ML SYRINGE SC SCH (08:38)
[2017-02-09 08:54] VITALS: BP 159/83; PULSE 59; RESP 18; TEMP 97.7; O2SAT 91
[2017-02-09] MEDS ORDERED: ENOXAPARIN 40 MG/0.4 ML SYR SC SCH (09:00)
[2017-02-09] MEDS ORDERED: ATORVASTATIN CALCIUM 20 MG TAB PO SCH (09:00)
[2017-02-09 09:52] LABS: HEMOGLOBIN A1C 8.3 % (4.0-6.0)
[2017-02-09] MEDS: LORazepam 0.5 MG TAB PO PRN (11:34)
--- NOTE | 2017-02-09 14:07 | HOSPPROG ---
Hospitalist Progress Note Assessment/Plan: 61 yo M with PMH of DM, chronic pain presenting with 3 weeks of n/v and worsening abdominal pain. # n/v/abdominal pain: reviewed with surgery who doubts sxs are related to pancreatic mass as next. N/v has been present x 3 weeks but improved overnight with prn anti emetics and pain medication. Have asked GI to consult and query if EGD would be appropriate given length of sxs and uncertain etiology # pancreatic mass: relatively small pancreatic head mass that per radiology appears c/w neuroendocrine tumor. Appreciate Dr. Wells input, he feels that EUS with biopsy likely safest and most reasonable first intervention--as above, GI to evaluate. # DM/insulin dependent: in the past has been poorly controlled with complications of neuropathy and prior issues with diabetic wounds, A1c now down to 8.3 from 9.2 previously. Sugars have been largely < 200 since arrival, on lower doses of glargine (64 bid at home, giving 32 bid here) and ssi (holding aspart tid for now as well) . If PO intake begins to increase or sugars are climbing will uptitrate glargine. # HTN: will continue coreg/norvasc and monitor, thus far has been reasonably controlled # hx of severe depression: appears to be stable and euthymic currently but difficult given significant pain on arrival # HLD: continue atorvastatin # IP status, will need > 48 hours stay for eval/mgmt of above given multiple active issues requiring further evaluation and monitoring Subjective: patient notes that his pain and nausea are improved today, he is eager to know what the next tests will be Objective: Vital Signs Temp Pulse Resp BP Pulse Ox 36.5 C 59 L 18 159/83 H 91 L 02/09/17 08:50 02/09/17 08:50 02/09/17 08:50 02/09/17 08:50 02/09/17 08:50 Laboratory Results 02/09/17 04:52 02/09/17 04:52 02/08/17 02/09/17 02/10/17 05:59 05:59 05:59 Intake Total 1800 Output Total 900 Balance 900 awake alert nad anicteric op clear rrr no mrg cta b soft nt nd no cce warm dry well perfused oriented appropriate ICD10 Worksheet Patient Problems: Problems Problem Status Onset Diabetic foot ulcer Acute Cellulitis Acute Hyperkalemia Acute MRSA (methicillin resistant Staphylococcus aureus) Acute 03/30/16 Diabetes mellitus Acute Hyperglycemia Acute Osteomyelitis of ankle or foot Acute
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
--- NOTE | 2017-02-09 15:59 | PDDCSUM ---
Discharge Summary Discharge Summary: Dates of service 02/08-02/09/17 # n/v/abdominal pain # pancreatic mass # IDDM # HTN #HLD Consultations: GI, general surgery Procedures performed: abdominal CT Hospital course by problem: 61 yo M with PMH of DM, chronic pain presenting with 3 weeks of n/v and worsening abdominal pain. # n/v/abdominal pain: reviewed with surgery who doubts sxs are related to pancreatic mass as next. N/v has been present x 3 weeks but improved/ essentially resolved. GI does not feel further w/u warranted given resolution. # pancreatic mass: relatively small pancreatic head mass that per radiology appears c/w neuroendocrine tumor. GI setting patient up for f/u for EUS with biopsy in coming days. # DM/insulin dependent: in the past has been poorly controlled with complications of neuropathy and prior issues with diabetic wounds, A1c now down to 8.3 from 9.2 previously. Will have patient resume his home regimen on discharge. # HTN: will continue coreg/norvasc and monitor, well controlled # hx of severe depression: appears to be stable and euthymic currently but difficult given significant pain on arrival # HLD: continue atorvastatin DC home--resides in [facility] > 35 minutes spent in dc more than half in coordination of care
--- NOTE | 2017-02-09 16:56 | PDIAF ---
- Diagnosis Code Status: Full Code - Medication Management Discharge Medications: Medications to Continue on Transfer Gabapentin [Neurontin 400 MG (*)] 800 mg PO TIDMEAL #90 cap 08/23/16 [Last Taken 02/07/17 16:00] Omeprazole [Prilosec 20 mg] 20 mg PO HS #30 capsule. 08/23/16 [Last Taken 11/18 21:00] oxyCODONE CR [Oxycontin] 30 mg PO BID #30 tab 08/23/16 [Last Taken 02/07/17 21: 00] Atorvastatin Calcium [Lipitor 20 mg (*)] 20 mg PO DAILY 02/08/17 [Last Taken 11/18 16:00] Carvedilol [Coreg (*)] 6.25 mg PO BIDMEAL 02/08/17 [Last Taken 02/07/17 16:00] Cholecalciferol Vit D3 [Vitamin D3 (*)] 50,000 unit PO TU 02/08/17 [Last Taken 02/07/17 11:00] Gabapentin [Neurontin 400 MG (*)] 1,200 mg PO HS 02/08/17 [Last Taken 02/07/17 21:00] Herbals/Supplements -Info Only 1 ea PO DAILY 02/08/17 [Last Taken 02/07/17 08:00 ] Insulin Aspart [novoLOG] 0 unit SC TIDMEAL PRN 02/08/17 [Last Taken 02/07/17 17: 00] Insulin Aspart [novoLOG] 13 unit SC TIDMEAL 02/08/17 [Last Taken 02/07/17 17:00] Insulin Glargine [Lantus 100 UNITS/ML (*)] 64 unit SC BID 02/08/17 [Last Taken 02/07/17 21:00] Mirtazapine 30 mg PO HS 02/08/17 [Last Taken 02/07/17 21:00] amLODIPine BESYLATE [Norvasc 10 mg (*)] 10 mg PO DAILY 02/08/17 [Last Taken 11/18 08:00] oxyCODONE IR [Oxycodone Ir (*)] 15 mg PO Q6 PRN 02/08/17 [Last Taken 02/08/17 05 :00] Discharge Medications: Refer to the Discharge Home Medication list for PRN reason. - Orders Services needed: Registered Nurse, Certified [employer] Diet Recommendation: no restrictions on diet - Follow Up Care Current Providers and Referrals: Sachin Painting MD [Medical Doctor] - Patient,NotPresent [Unknown] - As per Instructions
--- NOTE | 2017-02-11 17:07 | ASMTCMCOM ---
CM Note CM Note Notes: Pt's DC needs TBD pending further evaluation. C/M to follow. Date Signed: 02/09/2017 03:25 PM Electronically Signed By:Catia Dubose
--- NOTE | 2017-02-11 17:08 | ASMTCMCOM ---
CM Note CM Note Notes: Pt told staff as he was discharging that he lives at [facility] in LTC bed. Called [facility] to confirm. Faxed final orders. B/M okayed pt taking a cab there. Date Signed: 02/09/2017 05:10 PM Electronically Signed By:Catia Dubose
== END 2017-02-09 17:21 | disposition home or self-care (01) | DRG 392 ==
LOC: EDUNIT# → F1N 11:31 → OBSVTOIN 12:04
PROVIDERS: ADMIT Internal Medicine; ATTEND Internal Medicine
DX: R11.2 Nausea with vomiting, unspecified (principal); F11.20 Opioid dependence, uncomplicated; R10.10 Upper abdominal pain, unspecified; D37.8 Neoplasm of uncertain behavior of other specified digestive organs; E11.40 Type 2 diabetes mellitus with diabetic neuropathy, unspecified; I10 Essential (primary) hypertension; E78.5 Hyperlipidemia, unspecified; G89.29 Other chronic pain; Z79.4 Long term (current) use of insulin; Z72.0 Tobacco use
CPT/HCPCS: 82947-QW; J1170; J1650; J1815; J2060; J2405; J2550; J3010; Q9967

== ENCOUNTER 2017-02-16 09:28 | Day surgery (SDC) | payer OTHER, MEDICAID ==
[2017-02-16] MEDS ORDERED: LIDOCAINE 1% 2 ML INJ ID PRN (09:53)
[2017-02-16] MEDS ORDERED: LR 1,000 ML IV ONE (09:53)
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
[2017-02-16] MEDS ORDERED: PROPOFOL/EMULSION 500 MG/50 ML BOTTLE IV ONE ×2 (10:55→11:25)
[2017-02-16] MEDS ORDERED: NALOXONE HCL 0.4 MG/ML INJ IVP PRN (11:01)
[2017-02-16] MEDS ORDERED: ACETAMINOPHEN 500 MG TAB PO PRN (11:01)
--- NOTE | 2017-02-16 11:10 | PDGENHP ---
History & Physical Chief Complaint: abnl imaging History of Present Illness: 61 year old male with recent hx of abdominal pain. CT scan revealed 9mm lesion in head of pancreas Pertinent Past, Social, Family History: SoHx: + smoker. MJ. PMHx: DM, HTN, chronic pain. FaMHx: uncle panc cancer Relevant Physical Exam: HEENT: anicteric sclera. CV: RRR +s1s2. Lungs: CTAB No w/r/r. Abd: soft, nt, + BS Cardiorespiratory Assessment: ASA 3
[2017-02-16] MEDS ORDERED: INDOMETHACIN 50 MG SUPP PR PRN (11:38)
[2017-02-16] MEDS ORDERED: NS 500 ML IV SCH (11:45)
--- NOTE | 2017-02-16 11:49 | POSTOPPROG ---
Post Op Note Date of Operation: 02/16/17 Surgeon: Kalen Guerrero Anesthesia: IV Sedation Pre-op Diagnosis: abnl imaging Post-op Diagnosis: gastritis. + panc leison Indication: abnl imaging Procedure: Egd w/ bx, EUS FNA Findings: + gastritis. Inf/Abcess present in the surg proc area at time of surgery?: No EBL: Minimal Specimen(s): + FNA of panc lesion + gastritis
[2017-02-16 12:06] VITALS: PULSE 83; TEMP 98.8
[2017-02-16 12:32] VITALS: RESP 20
[2017-02-16 12:50] VITALS: BP 137/61; O2SAT 99
--- NOTE | 2017-02-16 16:48 | POSTANESTH ---
Post Anesthetic Evaluation Cardiovascular Status: Normal, Stable, Similar to Pre-Op Cond Respiratory Status: Normal, Stable, Similar to Pre-op Cond. Level of Consciousness/Mental Status: Can Participate in Eval, Alert and Oriented Pain Control: Adequate, Prn Tx Ordered Nausea/Vomiting Control: Adequate, Prn Tx Ordered Complications Possibly Related to Anesthesia: None Noted
== END 2017-02-16 13:05 | disposition home or self-care (01) ==
LOC: FSGY 09:28
PROVIDERS: ATTEND Internal Medicine Gastroenterology
PROC: 0DB58ZX Excision of Esophagus, Via Natural or Artificial Opening Endoscopic, Diagnostic (ICD-10-PCS; principal; 2017-02-16 11:00)
PROC: 0DB68ZX Excision of Stomach, Via Natural or Artificial Opening Endoscopic, Diagnostic (ICD-10-PCS; principal; 2017-02-16 11:00)
PROC: 0FBG4ZX Excision of Pancreas, Percutaneous Endoscopic Approach, Diagnostic (ICD-10-PCS; principal; 2017-02-16 11:00)
DX: K86.89 Other specified diseases of pancreas (principal); K29.60 Other gastritis without bleeding; E11.40 Type 2 diabetes mellitus with diabetic neuropathy, unspecified; F32.9 Major depressive disorder, single episode, unspecified; Z89.419 Acquired absence of unspecified great toe; F17.210 Nicotine dependence, cigarettes, uncomplicated
CPT/HCPCS: J2704

== ENCOUNTER 2017-02-19 07:00 | Emergency (ER) | payer OTHER, MEDICAID ==
--- NOTE | 2017-02-19 07:12 | EDPHY ---
H & P Stated Complaint: pain control while waiting for cancer dx. HPI/ROS: CHIEF COMPLAINT: Chronic abdominal pain HISTORY OF PRESENT ILLNESS: The patient is a 61-year-old man who comes from [facility] [place] complaining of chronic abdominal discomfort and nausea vomiting. He states he has felt this way for several months. He was admitted 1 week ago and found to have a small mass at the head of his pancreas possibly neuroendocrine tumor. He had it biopsied [address] Guerrero and was also noticed to have mild gastritis. He is on omeprazole daily. He has a history of diabetes and reports a strong history of cancer in the family. Has not had a fever. He has been vomiting. No diarrhea. No chest pain or shortness of breath. No blood in his vomit. REVIEW OF SYSTEMS: Constitutional: denies: chills, fever, recent illness, recent injury EENTM: denies: blurred vision, double vision, nose congestion Respiratory: denies: cough, shortness of breath Cardiac: denies: chest pain, irregular heart rate, lightheadedness, palpitations Gastrointestinal/Abdominal: See HPI Genitourinary: denies: dysuria, frequency, hematuria, pain Musculoskeletal: denies: joint pain, muscle pain Skin: denies: lesions, rash, jaundice, bruising Neurological: denies: headache, numbness, paresthesia, tingling, dizziness, weakness Hematologic/Lymphatic: denies: blood clots, easy bleeding, easy bruising Immunologic/allergic: denies: HIV/AIDS, transplant EXAM: GENERAL: Well-appearing, well-nourished and in no acute distress. HEAD: Atraumatic, normocephalic. EYES: Pupils equal round and reactive to light, extraocular movements intact, sclera anicteric, conjunctiva are normal. ENT: TMs normal, nares patent, oropharynx clear without exudates. Moist mucous membranes. NECK: Normal range of motion, supple without lymphadenopathy or JVD. LUNGS: Breath sounds clear to auscultation bilaterally and equal. No wheezes rales or rhonchi. HEART: Regular rate and rhythm without murmurs, rubs or gallops. ABDOMEN: Soft, nontender, normoactive bowel sounds. No guarding, no rebound. No masses appreciated. BACK: No CVA tenderness, no spinal tenderness, step-offs or deformities EXTREMITIES: Normal range of motion, no pitting or edema. No clubbing or cyanosis. NEUROLOGICAL: Cranial nerves II through XII grossly intact. Normal speech, normal gait. 5/5 strength, normal movement in all extremities, normal sensation PSYCH: Normal mood, normal affect. SKIN: Dark, no rashes or lesions Source: Patient Exam Limitations: No limitations - Personal History Current Tetanus/Diphtheria Vaccine: No Current Tetanus Diphtheria and Acellular Pertussis (TDAP): No - Medical/Surgical History Hx Asthma: No Hx Chronic Respiratory Disease: No Hx Diabetes: Yes Hx Cardiac Disease: Yes Hx Renal Disease: No Hx Cirrhosis: No Hx Alcoholism: No Hx HIV/AIDS: No Hx Splenectomy or Spleen Trauma: No Other PMH: depression, dmT2, ECT threapy, gerd, neuropathy, - Family History Significant Family History: No pertinent family hx - Social History Smoking Status: Current some day smoker Alcohol Use: Sober Drug Use: None Constitutional: Initial Vital Signs Temperature (C) 36.5 C 02/19/17 07:06 Heart Rate 83 02/19/17 07:06 Respiratory Rate 16 02/19/17 07:06 Blood Pressure 186/107 H 02/19/17 07:06 O2 Sat (%) 94 02/19/17 07:06 O2 Delivery Mode Room Air Allergies/Adverse Reactions: daptomycin Allergy (Severe, Verified 08/31/16 10:11) pulmonary hypersensitivity vancomycin Allergy (Verified 08/19/16 01:22) Fever Home Medications: Medication Instructions Recorded Gabapentin [Neurontin 400 MG (*)] 800 mg PO TIDMEAL #90 cap 08/23/16 oxyCODONE CR [Oxycontin] 30 mg PO BID #30 tab 08/23/16 Carvedilol [Coreg (*)] 6.25 mg PO BIDMEAL 02/08/17 Cholecalciferol Vit D3 [Vitamin D3 50,000 unit PO TU 02/08/17 (*)] Gabapentin [Neurontin 400 MG (*)] 1,200 mg PO HS 02/08/17 Insulin Aspart [novoLOG] 0 unit SC TIDMEAL PRN 02/08/17 Insulin Aspart [novoLOG] 13 unit SC TIDMEAL 02/08/17 Insulin Glargine [Lantus 100 64 unit SC BID 02/08/17 UNITS/ML (*)] amLODIPine BESYLATE [Norvasc 10 mg 10 mg PO DAILY 02/08/17 (*)] Metoclopramide [Reglan 10 mg tab 10 mg PO BID PRN #10 tab 02/19/17 (RX)] Medical Decision Making - Diagnostics Imaging Results: Imaging Impressions Abdomen CT 02/19/17 07:09 Impression: 1. Subtle small enhancing nodule suspected along the anterior margin of the pancreatic head less well delineated on today's study. 2. Complex cystic lesion along the right lateral margin of the pancreatic head. This could represent pancreatic pseudocyst versus complex pancreatic cystic neoplasm. Apparently, the patient has undergone endoscopic ultrasound and biopsy. 3. Stable mild splenomegaly. 4. Mild increase in mucous plugging to both lung bases posteriorly. Findings discussed with Nikko Fernandes M.D. at 9:11 hour, 02/19/2017. ED Course/Re-evaluation: 9:[address] a[address]. we discussed the CT results. The patient is relieved. His pain is controlled. He is requesting some Reglan to take at home when he has a flat. He will follow up with his GI about the results of his biopsy. Differential Diagnosis: Partial list of the Differential diagnosis considered include but were not limited to; hematoma, abscess, perforation, chronic pain and although unlikely based on the history and physical exam, I also considered sepsis, acute coronary disease. I discussed these differential diagnoses and the plan with the patient as well as the usual and expected course. The patient understands that the diagnosis is provisional and that in medicine we are not always correct and that further workup is often warranted. Usual and customary warnings were given. All of the patient's questions were answered. The patient was instructed to return to the emergency department should the symptoms at all worsen or return, otherwise to followup with the physician as we discussed. - Data Points Laboratory Results: Laboratory Results 02/19/17 07:27 02/19/17 07:27 02/19/17 02/19/17 07:27 07:27 WBC 7.67 10^3/uL 10^3/uL (3.80-9.50) RBC 5.57 10^6/uL 10^6/uL (4.40-6.38) Hgb 13.9 g/dL g/dL (13.7-17.5) Hct 43.2 % % (40.0-51.0) MCV 77.6 fL L fL (81.5-99.8) MCH 25.0 pg L pg (27.9-34.1) MCHC 32.2 g/dL L g/dL (32.4-36.7) RDW 19.0 % H % (11.5-15.2) Plt Count 180 10^3/uL 10^3/uL (150-400) MPV 10.8 fL fL (8.7-11.7) Neut % (Auto) 71.4 % % (39.3-74.2) Lymph % (Auto) 18.3 % % (15.0-45.0) [place] % (Auto) 7.4 % % (4.5-13.0) Eos % (Auto) 2.2 % % (0.6-7.6) Baso % (Auto) 0.4 % % (0.3-1.7) Nucleat RBC Rel Count 0.0 % % (0.0-0.2) Absolute Neuts (auto) 5.48 10^3/uL 10^3/uL (1.70-6.50) Absolute Lymphs (auto) 1.40 10^3/uL 10^3/uL (1.00-3.00) Absolute Monos (auto) 0.57 10^3/uL 10^3/uL (0.30-0.80) Absolute Eos (auto) 0.17 10^3/uL 10^3/uL (0.03-0.40) Absolute Basos (auto) 0.03 10^3/uL 10^3/uL (0.02-0.10) Absolute Nucleated RBC 0.00 10^3/uL 10^3/uL (0-0.01) Immature Gran % 0.3 % % (0.0-1.1) Immature Gran # 0.02 10^3/uL 10^3/uL (0.00-0.10) Sodium 142 mEq/L mEq/L (134-144) Potassium 4.0 mEq/L mEq/L (3.5-5.2) Chloride 102 mEq/L mEq/L (97-110) Carbon Dioxide 24 mEq/l mEq/l (22-31) Anion Gap 16 mEq/L mEq/L (8-16) BUN 9 mg/dL mg/dL (7-23) Creatinine 0.8 mg/dL mg/dL (0.7-1.3) Estimated GFR > 60 Glucose 99 mg/dL mg/dL (70-100) Calcium 9.3 mg/dL mg/dL (8.5-10.4) Total Bilirubin 1.3 mg/dL mg/dL (0.1-1.4) Conjugated Bilirubin 0.4 mg/dL mg/dL (0.0-0.5) Unconjugated Bilirubin 0.9 mg/dL mg/dL (0.0-1.1) AST 34 IU/L IU/L (17-59) ALT 36 IU/L IU/L (21-72) Alkaline Phosphatase 97 IU/L IU/L (38-126) Total Protein 8.2 g/dL g/dL (6.3-8.2) Albumin 4.2 g/dL g/dL (3.5-5.0) Lipase 39 IU/L IU/L (23-300) Medications Given: Discontinued Medications Dicyclomine HCl (Bentyl) 20 mg PO EDNOW ONE Stop: 02/19/17 07:10 Last Admin: 02/19/17 07:42 Dose: 20 mg Sodium Chloride (Ns) 1,000 mls @ 0 mls/hr IV EDNOW ONE; Wide Open PRN Reason: Protocol Stop: 02/19/17 07:09 Last Admin: 02/19/17 07:20 Dose: 1,000 mls Famotidine/Sodium Chloride (Pepcid 20 Mg (Premix)) 50 mls @ 200 mls/hr IV EDNOW ONE Stop: 02/19/17 07:26 Last Admin: 02/19/17 07:21 Dose: 50 mls Metoclopramide HCl (Reglan Injection) 10 mg IVP EDNOW ONE Stop: 02/19/17 07:10 Last Admin: 02/19/17 07:20 Dose: 10 mg Ondansetron HCl (Zofran) 4 mg IVP EDNOW ONE Stop: 02/19/17 07:09 Last Admin: 02/19/17 07:20 Dose: 4 mg Departure - Departure Disposition: Home, Routine, Self-Care Clinical Impression: Chronic abdominal pain Condition: Fair Instructions: Chronic Abdominal Pain (ED) Referrals: Patient,NotPresent [Unknown] - As per Instructions Kalen Guerrero MD [Medical Doctor] - As per Instructions Prescriptions: Metoclopramide [Reglan 10 mg tab (RX)] 10 mg PO BID PRN #10 tab PRN Reason: Headache
[2017-02-19] MEDS: ONDANSETRON 4 MG/2 ML VIAL IVP ONE (07:20)
[2017-02-19] MEDS: METOCLOPRAMIDE 10 MG/2 ML VIAL IVP ONE (07:20)
[2017-02-19] MEDS: NS 1,000 ML IV ONE (07:20)
[2017-02-19] MEDS: FAMOTIDINE 20 MG/NACL 50 ML IV ONE (07:21)
[2017-02-19 07:36] LABS: % IMMATURE GRANULYOCYTES 0.3 % (0.0-1.1); ABSOLUTE IMMATURE GRANULOCYTES 0.02 10^3/uL (0.00-0.10); ADD DIFF? NO; ADD MORPH? NO; ADD SCAN? NO; ATYPICAL LYMPHOCYTE FLAG 20 (0-99); FRAGMENT RBC FLAG 20 (0-99); HEMATOCRIT 43.2 % (40.0-51.0); HEMOGLOBIN 13.9 g/dL (13.7-17.5); LEFT SHIFT FLG 0 (0-99); LIPEMIA HEMOLYSIS FLAG 80 (0-99); MEAN CELL HEMOGLOBIN CONCENTR. 32.2 g/dL (32.4-36.7); MEAN CELL VOLUME 77.6 fL (81.5-99.8); MEAN PLATELET VOLUME 10.8 fL (8.7-11.7); PLATELET CLUMPS FLAG 10 (0-99); PLATELET COUNT 180 10^3/uL (150-400); RED BLOOD CELL COUNT 5.57 10^6/uL (4.40-6.38)
[2017-02-19] MEDS: DICYCLOMINE 20 MG TAB PO ONE (07:42)
[2017-02-19 08:03] LABS: ALANINE AMINOTRANSFERASE 36 IU/L (21-72); ALBUMIN 4.2 g/dL (3.5-5.0); ALKALINE PHOSPHATASE 97 IU/L (38-126); ANION GAP 16 mEq/L (8-16); ASPARTATE AMINOTRANSFERASE 34 IU/L (17-59); BILIRUBIN,TOTAL 1.3 mg/dL (0.1-1.4); BILIRUBIN-CONJUGATED 0.4 mg/dL (0.0-0.5); BILIRUBIN-UNCONJUGATED 0.9 mg/dL (0.0-1.1); CALCIUM 9.3 mg/dL (8.5-10.4); CARBON DIOXIDE 24 mEq/l (22-31); CHLORIDE 102 mEq/L (97-110); CREATININE 0.8 mg/dL (0.7-1.3); GLOMERULAR FILTRATION RATE > 60; GLUCOSE 99 mg/dL (70-100); SODIUM 142 mEq/L (134-144); TOTAL PROTEIN 8.2 g/dL (6.3-8.2)
[2017-02-19] MEDS ORDERED: IOPAMIDOL (ISOVUE-300) 100 ML BTL ONE (08:21)
[2017-02-19 09:48] VITALS: BP 196/82; PULSE 77; RESP 18; TEMP 98.4; O2SAT 93
== END 2017-02-19 09:50 | disposition home or self-care (01) ==
LOC: EDUNIT#
DX: R10.9 Unspecified abdominal pain (principal); G89.29 Other chronic pain; E86.9 Volume depletion, unspecified
CPT/HCPCS: 74177; 96361; 96365; 96366; 96375; 99285; J2405; J2765; Q9967

== ENCOUNTER → 2017-03-09 | Outpatient (CLI) | payer OTHER, MEDICAID ==
[~2017-03-09] MED LIST: IOPAMIDOL (ISOVUE-300) 100 ML BTL ONE
== END ==
LOC: FIMAGING 09:56
PROVIDERS: ATTEND Internal Medicine Gastroenterology
DX: R93.3 Abnormal findings on diagnostic imaging of other parts of digestive tract (principal)
CPT/HCPCS: 74177; Q9967

== ENCOUNTER → 2017-04-27 | Outpatient (CLI) | payer OTHER, MEDICAID ==
[~2017-04-27] MED LIST changes: +GADOBUTROL 10 ML VIAL IVP ONE; -IOPAMIDOL (ISOVUE-300) 100 ML BTL ONE
== END ==
LOC: FIMAGING 09:37
DX: R27.8 Other lack of coordination (principal); L03.115 Cellulitis of right lower limb; E11.40 Type 2 diabetes mellitus with diabetic neuropathy, unspecified; G62.9 Polyneuropathy, unspecified
CPT/HCPCS: 74183; A9585

== ENCOUNTER 2017-05-16 09:23 | Emergency (ER) | payer OTHER, MEDICAID ==
[2017-05-16 09:35] VITALS: RESP 16; TEMP 97.9
--- NOTE | 2017-05-16 09:35 | EDPHY ---
H & P Time Seen by Provider: 05/16/17 09:24 HPI/ROS: CHIEF COMPLAINT: Vomiting, abdominal pain HISTORY OF PRESENT ILLNESS: 62-year-old male presents to the emergency department with multiple episodes of vomiting since yesterday. The patient is a resident at [facility] and was diagnosed with norovirus 2 days ago. He apparently is now in the unit that is on lock down and he is unable to go outside to smoke his marijuana. Apparently he was very upset about this. He takes marijuana for his pain. Denies fevers or chills. Denies chest pain or difficulty breathing. He describes diffuse abdominal pain and cramping. No diarrhea. He thinks he had a bowel movement yesterday. REVIEW OF SYSTEMS: Constitutional: No fever, no chills. Eyes: No double or blurry vision. ENT: No sore throat. Respiratory: No cough, no shortness of breath. Cardiac: No chest pain. Gastrointestinal: Abdominal pain, vomiting. No diarrhea. Genitourinary: No dysuria. Musculoskeletal: No neck or back pain. Skin: No rashes. Neurological: No headache. Past Medical/Surgical History: Diabetes, neuropathy, toe amputations, diabetic foot ulcer on the left foot currently under treatment Social History: Resident at [facility] Smoking Status: Current some day smoker Physical Exam: General Appearance: Alert, no distress. Afebrile. Appears anxious. Eyes: Pupils equal and round. Extraocular motions are all intact. ENT: Mouth: Mucous membranes moist. Respiratory: No wheezing, rhonchi, or rales, lungs are clear to auscultation. Cardiovascular: Regular rate and rhythm. Gastrointestinal: Abdomen is soft, diffusely tender to palpate. No rebound, guarding or masses noted. No localizing pain with palpation. No CVA tenderness bilaterally. Neurological: Alert and oriented x 3, cranial nerves II through XII grossly intact Skin: Warm and dry, no rashes. Musculoskeletal: Nontender to palpate along the cervical, thoracic or lumbar spine. Neck is supple. Extremities: Wound dressing and Prather boot noted to the left foot. Amputated right great toe and right 2nd toe noted. No signs of infection to his right foot. The dressing on the left foot was not removed as this is undergoing wound management. Psychiatric: Patient is oriented X 3, there is no agitation. Constitutional: Initial Vital Signs Temperature (C) 36.6 C 05/16/17 09:23 Heart Rate 52 L 05/16/17 09:23 Respiratory Rate 16 05/16/17 09:23 Blood Pressure 181/97 H 05/16/17 09:23 O2 Sat (%) 97 05/16/17 09:23 O2 Delivery Mode Room Air Allergies/Adverse Reactions: daptomycin Allergy (Severe, Verified 08/31/16 10:11) pulmonary hypersensitivity vancomycin Allergy (Verified 08/19/16 01:22) Fever Home Medications: Medication Instructions Recorded Gabapentin [Neurontin 400 MG (*)] 800 mg PO TIDMEAL #90 cap 08/23/16 oxyCODONE CR [Oxycontin] 30 mg PO BID #30 tab 08/23/16 Carvedilol [Coreg (*)] 6.25 mg PO BIDMEAL 02/08/17 Cholecalciferol Vit D3 [Vitamin D3 50,000 unit PO TU 02/08/17 (*)] Gabapentin [Neurontin 400 MG (*)] 1,200 mg PO HS 02/08/17 Insulin Aspart [novoLOG] 0 unit SC TIDMEAL PRN 02/08/17 Insulin Aspart [novoLOG] 13 unit SC TIDMEAL 02/08/17 Insulin Glargine [Lantus 100 64 unit SC BID 02/08/17 UNITS/ML (*)] amLODIPine BESYLATE [Norvasc 10 mg 10 mg PO DAILY 02/08/17 (*)] Metoclopramide [Reglan 10 mg tab 10 mg PO BID PRN #10 tab 02/19/17 (RX)] Medical Decision Making ED Course/Re-evaluation: 62-year-old male presents to the emergency department with multiple episodes of vomiting. He was diagnosed with norovirus 2 days and resides at [facility]. The patient had IV established. Laboratory studies were within normal limits. His CO2 however was a bit low at 17. He received 2 L of IV normal saline. He also received Phenergan 12.5 mg IV. He also received 20 mg of Bentyl p. o.. The patient was able to rest. He had no vomiting during the 4 hr he was evaluated the emergency department. Upon discharge he was tolerating p.o. fluids. He will be discharged back to [facility]. Differential Diagnosis: Including but not limited to norovirus, dehydration, acute appendicitis, pancreatitis, bowel obstruction - Data Points Laboratory Results: Laboratory Results 05/16/17 09:50 05/16/17 09:50 05/16/17 05/16/17 09:50 09:50 WBC 11.35 10^3/uL H 10^3/uL (3.80-9.50) RBC 5.88 10^6/uL 10^6/uL (4.40-6.38) Hgb 15.9 g/dL g/dL (13.7-17.5) Hct 46.8 % % (40.0-51.0) MCV 79.6 fL L fL (81.5-99.8) MCH 27.0 pg L pg (27.9-34.1) MCHC 34.0 g/dL g/dL (32.4-36.7) RDW 16.1 % H % (11.5-15.2) Plt Count 191 10^3/uL 10^3/uL (150-400) MPV 13.6 fL H fL (8.7-11.7) Neut % (Auto) 88.7 % H % (39.3-74.2) Lymph % (Auto) 7.8 % L % (15.0-45.0) [place] % (Auto) 2.6 % L % (4.5-13.0) Eos % (Auto) 0.3 % L % (0.6-7.6) Baso % (Auto) 0.3 % % (0.3-1.7) Nucleat RBC Rel Count 0.0 % % (0.0-0.2) Absolute Neuts (auto) 10.07 10^3/uL H 10^3/uL (1.70-6.50) Absolute Lymphs (auto) 0.89 10^3/uL L 10^3/uL (1.00-3.00) Absolute Monos (auto) 0.30 10^3/uL 10^3/uL (0.30-0.80) Absolute Eos (auto) 0.03 10^3/uL 10^3/uL (0.03-0.40) Absolute Basos (auto) 0.03 10^3/uL 10^3/uL (0.02-0.10) Absolute Nucleated RBC 0.00 10^3/uL 10^3/uL (0-0.01) Immature Gran % 0.3 % % (0.0-1.1) Immature Gran # 0.03 10^3/uL 10^3/uL (0.00-0.10) Sodium 144 mEq/L mEq/L (134-144) Potassium 4.4 mEq/L mEq/L (3.5-5.2) Chloride 104 mEq/L mEq/L (97-110) Carbon Dioxide 23 mEq/l mEq/l (22-31) Anion Gap 17 mEq/L H mEq/L (8-16) BUN 13 mg/dL mg/dL (7-23) Creatinine 0.8 mg/dL mg/dL (0.7-1.3) Estimated GFR > 60 Glucose 196 mg/dL H mg/dL (70-100) Calcium 9.9 mg/dL mg/dL (8.5-10.4) Medications Given: Discontinued Medications Dicyclomine HCl (Bentyl) 20 mg PO EDNOW ONE Stop: 05/16/17 10:10 Last Admin: 05/16/17 10:14 Dose: 20 mg Sodium Chloride (Ns) 1,000 mls @ 0 mls/hr IV ONCE ONE; Wide Open PRN Reason: Protocol Stop: 05/16/17 09:39 Last Admin: 05/16/17 09:51 Dose: 1,000 mls Sodium Chloride (Ns) 1,000 mls @ 0 mls/hr IV ONCE ONE PRN Reason: Wide Open Stop: 05/16/17 11:10 Last Admin: 05/16/17 11:29 Dose: 1,000 mls Promethazine HCl (Phenergan) 12.5 mg IVP EDNOW ONE Stop: 05/16/17 10:10 Last Admin: 05/16/17 10:14 Dose: 12.5 mg Departure - Departure Disposition: Home, Routine, Self-Care Clinical Impression: Dehydration Vomiting Qualifiers: Vomiting type: unspecified Vomiting Intractability: non-intractable Nausea presence: with nausea Qualified Code(s): R11.2 - Nausea with vomiting, unspecified Condition: Good Instructions: Dehydration (ED), Acute Nausea and Vomiting (ED) Additional Instructions: Clear liquids and then slowly advance diet as tolerated after you have not thrown up for at least 12 hours. Abdominal Pain: Return to the Emergency Department immediately for increasing pain, fever, vomiting, or if not completely better in 8-12 hours. Referrals: Patient,NotPresent [Unknown] - As per Instructions
[2017-05-16] MEDS ORDERED: NS 1,000 ML IV ONE ×2 (09:38→11:09)
[2017-05-16] MEDS ORDERED: PROMETHAZINE HCL 25 MG/ML INJ IVP ONE (10:09)
[2017-05-16] MEDS ORDERED: DICYCLOMINE 10 MG CAP PO ONE (10:09)
[2017-05-16 11:17] LABS: % IMMATURE GRANULYOCYTES 0.3 % (0.0-1.1); ABSOLUTE IMMATURE GRANULOCYTES 0.03 10^3/uL (0.00-0.10); ADD DIFF? NO; ADD MORPH? NO; ADD SCAN? NO; ATYPICAL LYMPHOCYTE FLAG 0 (0-99); FRAGMENT RBC FLAG 0 (0-99); HEMATOCRIT 46.8 % (40.0-51.0); HEMOGLOBIN 15.9 g/dL (13.7-17.5); LEFT SHIFT FLG 0 (0-99); LIPEMIA HEMOLYSIS FLAG 90 (0-99); MEAN CELL VOLUME 79.6 fL (81.5-99.8); MEAN PLATELET VOLUME 13.6 fL (8.7-11.7); PLATELET CLUMPS FLAG 0 (0-99); PLATELET COUNT 191 10^3/uL (150-400); RED BLOOD CELL COUNT 5.88 10^6/uL (4.40-6.38); RED CELL DISTRIBUTION WIDTH 16.1 % (11.5-15.2)
[2017-05-16 11:23] LABS: ANION GAP 17 mEq/L (8-16); CALCIUM 9.9 mg/dL (8.5-10.4); CARBON DIOXIDE 23 mEq/l (22-31); CHLORIDE 104 mEq/L (97-110); CREATININE 0.8 mg/dL (0.7-1.3); GLOMERULAR FILTRATION RATE > 60; GLUCOSE 196 mg/dL (70-100); POTASSIUM 4.4 mEq/L (3.5-5.2); SODIUM 144 mEq/L (134-144)
--- NOTE | 2017-05-16 13:31 | ASMTCASEMG ---
Living Arrangements What is your living Answers: Alone arrangement? Who do you live with? Type Of Residence What kind of residence do Answers: Snf Facility you live in? Type of Residence Facility Name Notes: [facility] Discharge Plan Comments Coordination Status Comments Notes: Pt is a 62 y/o man admitted for voting and abdominal pain. Pt was diagnosed w/ norovirus 2 days ago. Pt is being discharged back to [facility]. CM arranged transportation with Cheryl at [facility]. CM available for changes. Plan: [facility] Date Signed: 05/16/2017 01:31 PM Electronically Signed By:LASHANDA Cavanaugh
[2017-05-16 14:07] VITALS: BP 163/91; PULSE 72; O2SAT 93
== END 2017-05-16 14:05 | disposition home or self-care (01) ==
LOC: EDUNIT#
DX: E86.0 Dehydration (principal); R11.2 Nausea with vomiting, unspecified; E11.9 Type 2 diabetes mellitus without complications; F17.200 Nicotine dependence, unspecified, uncomplicated; E86.9 Volume depletion, unspecified; Z79.4 Long term (current) use of insulin
CPT/HCPCS: 96361; 96374; 99284; J2550

== ENCOUNTER 2017-07-24 05:15 | Emergency (ER) | payer OTHER, MEDICAID ==
--- NOTE | 2017-07-24 05:28 | EDPHY ---
H & P - Medical/Surgical History Hx Asthma: No Hx Chronic Respiratory Disease: No Hx Diabetes: Yes Hx Cardiac Disease: Yes Hx Renal Disease: No Hx Cirrhosis: No Hx Alcoholism: No Hx HIV/AIDS: No Hx Splenectomy or Spleen Trauma: No Other PMH: depression, dmT2, ECT threapy, gerd, neuropathy, HTN, - Social History Smoking Status: Current some day smoker Time Seen by Provider: 07/24/17 05:22 HPI/ROS: Chief Complaint: Suicidal ideation HPI: 63-year-old male with a history of depression, type 2 diabetes, hypertension and neuropathy is presenting this morning with complaints of suicidal ideation. Patient states that he cannot tolerate the burning pain in his hands and his feet more. He has a plan to overdose on 90 of his blood pressure medications, Norvasc and lisinopril. He has a history of prior suicide attempts with overdose about 2 years ago. He is undergoing chronic pain management is also being followed by the wound clinic in [place]. Denies any fevers or chills. No nausea or vomiting. No chest pain or shortness of breath. Denies any ingestions at this time. ROS: 10 point Review of Systems is negative except as noted in the HPI. PMH: Hypertension, type 2 diabetes, neuropathy, 4 toe amputations Social History: Positive smoking, no alcohol, no recreational drug use Family History: non-contributory Physical Exam: Gen: Awake, Alert, No Distress HEENT: Nose: no rhinorrhea Eyes: PERRLA, EOMI Mouth: Moist mucosa Neck: Supple, no JVD Chest: nontender, lungs clear to auscultation Heart: S1, S2 normal, no murmur Abd: Soft, non-tender, no guarding Back: no CVA tenderness, no midline tenderness Ext: no edema, non-tender, left foot is in a orthopedic shoe and dressing which was left in place Skin: no rash Neuro: CN II-XII intact, Sensation grossly intact, Strength 5/5 in bilateral upper and lower extremities (Derek Davenport) Constitutional: Initial Vital Signs Temperature (C) 36.3 C 07/24/17 05:27 Heart Rate 60 07/24/17 05:27 Respiratory Rate 18 07/24/17 05:27 Blood Pressure 175/85 H 07/24/17 05:27 O2 Sat (%) 94 07/24/17 05:27 O2 Delivery Mode Room Air Allergies/Adverse Reactions: daptomycin Allergy (Severe, Verified 07/25/17 06:56) pulmonary hypersensitivity vancomycin Allergy (Verified 07/25/17 06:56) Fever Home Medications: Medication Instructions Recorded Gabapentin [Neurontin 400 MG (*)] 800 mg PO TIDMEAL #90 cap 08/23/16 oxyCODONE CR [Oxycontin] 30 mg PO BID #30 tab 08/23/16 Carvedilol [Coreg (*)] 6.25 mg PO BIDMEAL 02/08/17 Cholecalciferol Vit D3 [Vitamin D3 50,000 unit PO TU 02/08/17 (*)] Gabapentin [Neurontin 400 MG (*)] 1,200 mg PO HS 02/08/17 amLODIPine BESYLATE [Norvasc 10 mg 10 mg PO DAILY 02/08/17 (*)] oxyCODONE IR [Oxycodone Ir (*)] 15 mg PO Q4 PRN 07/25/17 Insulin Glargine [Lantus Syringe] 55 units SC BID unit 07/26/17 Insulin Lispro [HumaLOG LISPRO] 0 unit SC TIDMEAL unit 07/26/17 Medical Decision Making ED Course/Re-evaluation: 0700 patient is medically cleared. Care has been transferred to Dr. Ramirez pending mental health evaluation. No issues during my care this patient overnight. (Derek Davenport) Other Provider: Assumed care of this patient at change of shift, 7am. Patient seen by mental health beef killer. No longer meets criteria for a mental health hold. Not suicidal. Will be sent by taxi to Crisis Center where he has an appointment at noon with his therapist. (Janneth Ramirez) - Data Points Laboratory Results: Laboratory Results 07/24/17 05:25 07/24/17 05:25 Departure - Departure Disposition: Home, Routine, Self-Care Clinical Impression: History of suicidal ideation Chronic pain Qualifiers: Chronic pain type: other chronic pain Qualified Code(s): G89.29 - Other chronic pain Condition: Good Instructions: Chronic Pain (ED) Additional Instructions: Keep your appointment with the therapist at noon. Contact crisis center or return to the emergency department if you experience increased depression or suicidal ideation. Referrals: Agnieszka Flores MD [Medical Doctor] - As per Instructions
[2017-07-24 05:29] VITALS: RESP 18
[2017-07-24 05:39] LABS: PLATELET COUNT 167 10^3/uL (150-400)
[2017-07-24 09:20] VITALS: BP 140/87; PULSE 61; TEMP 98.1; O2SAT 93
== END 2017-07-24 10:33 | disposition home or self-care (01) ==
LOC: EDUNIT#
DX: R45.851 Suicidal ideations (principal); G89.29 Other chronic pain; E11.9 Type 2 diabetes mellitus without complications; I10 Essential (primary) hypertension; F17.200 Nicotine dependence, unspecified, uncomplicated; Z79.4 Long term (current) use of insulin
CPT/HCPCS: 80305; G0480

== ENCOUNTER 2017-07-25 06:43 | Observation (INO) | payer OTHER, MEDICAID ==
--- NOTE | 2017-07-25 06:59 | CPEKG ---
Heart Rate: 54 RR Interval: 1111 P-R Interval: 184 QRSD Interval: 100 QT Interval: 488 QTC Interval: 463 P Ollie: 45 QRS Ollie: -20 T Wave Ollie: 30 EKG Severity - OTHERWISE NORMAL ECG - EKG Impression: SINUS RHYTHM EKG Impression: BORDERLINE LEFT AXIS DEVIATION Electronically Signed By: Ryan Shea 26-Jul-2017 12:46:30
--- NOTE | 2017-07-25 07:02 | EDPHY ---
H & P Time Seen by Provider: 07/25/17 06:44 - Medical/Surgical History Hx Asthma: No Hx Chronic Respiratory Disease: No Hx Diabetes: Yes Hx Cardiac Disease: Yes Hx Renal Disease: No Hx Cirrhosis: No Hx Alcoholism: No Hx HIV/AIDS: No Hx Splenectomy or Spleen Trauma: No Other PMH: depression, dmT2, ECT threapy, gerd, neuropathy, HTN, - Social History Smoking Status: Current some day smoker Allergies/Adverse Reactions: daptomycin Allergy (Severe, Verified 07/24/17 05:29) pulmonary hypersensitivity vancomycin Allergy (Verified 07/24/17 05:29) Fever Home Medications: Medication Instructions Recorded Gabapentin [Neurontin 400 MG (*)] 800 mg PO TIDMEAL #90 cap 08/23/16 oxyCODONE CR [Oxycontin] 30 mg PO BID #30 tab 08/23/16 Carvedilol [Coreg (*)] 6.25 mg PO BIDMEAL 02/08/17 Cholecalciferol Vit D3 [Vitamin D3 50,000 unit PO TU 02/08/17 (*)] Gabapentin [Neurontin 400 MG (*)] 1,200 mg PO HS 02/08/17 Insulin Aspart [novoLOG] 0 unit SC TIDMEAL PRN 02/08/17 Insulin Aspart [novoLOG] 13 unit SC TIDMEAL 02/08/17 Insulin Glargine [Lantus 100 64 unit SC BID 02/08/17 UNITS/ML (*)] amLODIPine BESYLATE [Norvasc 10 mg 10 mg PO DAILY 02/08/17 (*)] Medical Decision Making ED Course/Re-evaluation: CHIEF COMPLAINT: Suicide attempt with overdose HISTORY OF PRESENT ILLNESS: 62-year-old gentleman who states that he is determined to and his suffering. He has tried to commit suicide before. This morning at 5:30 a.m. He took 10 10 mg carvedilol all and 5 20 mg amlodipine. He denies any alcohol, denies any Tylenol or aspirin can denies any other substances. He denies any symptoms at this point. The patient in the in decided he did not want to kill himself and he called sure if. They called [facility] and they brought him here. His old finding according to [facility] on the rhythm strip this is slightly borderline prolonged QT interval. REVIEW OF SYSTEMS: A 10 point review of systems was performed and is negative with the exception of the elements mentioned in the history of present illness. PHYSICAL EXAM: HR, BP, O2 Sat, RR. Temp noted General Appearance: Alert, well hydrated, appropriate, and non-toxic appearing. Head: Atraumatic without scalp tenderness or obvious injury Eyes: Pupils equal, round, reactive to light and accommodation, EOMI, no trauma , no injection. Ears: Clear bilaterally, no perforation, normal landmarks Nose: Atraumatic, no rhinorrhea, clear. Throat: There is no erythema or exudates, no lesions, normal tonsils, mucus membranes moist. Neck: Supple, 2+ carotid upstroke, nontender, no lymphadenopathy. Respiratory: No retractions, no distress, no wheezes, and no accessory muscle use. Lungs are clear to auscultation bilaterally. Cardiovascular: Regular rate and rhythm, no murmurs, rubs, or gallops. Bilateral carotid, radial, dorsalis pedis, and posterior tibial pulses intact. Good capillary refill all extremities. Gastrointestinal: Abdomen is soft, nontender, non-distended, no masses, no rebound, no guarding, no peritoneal signs. Musculoskeletal: Normal active ROM of all extremities, atraumatic. Neurological: Alert, appropriate, and interactive. The patient has normal DTRs and non-focal cranial nerves, motor, sensory, and cerebellar exam. Skin: No rashes, good turgor, no nodules on palpation. Past medical history: Suicidality, hypertension, depression Past surgical history: Noncontributory Family history: Noncontributory Social history: Single, unemployed, does not abuse tobacco drugs or alcohol DIFFERENTIAL DIAGNOSIS: Includes but is not limited to: Major depression, bipolar disorder, suicide ideation, suicide attempt MEDICAL DECISION MAKING: This point patient does not have bradycardia, hypotension, he does have a borderline QT prolongation. Laboratory studies are pending including electrolytes to make sure this patient does not have hyperkalemia. At this point I do not believe we need to treat the patient with glucagon, calcium, insulin, glucose, lipid emulsion. I will talk to the toxicology team and patient intensive care unit and is medically safe to be psychiatrically evaluated - Data Points Laboratory Results: 07/25/17 07/25/17 06:45 06:45 WBC Pending RBC Pending Hgb Pending Hct Pending MCV Pending MCH Pending MCHC Pending RDW Pending Plt Count Pending MPV Pending Neut % (Auto) Pending Lymph % (Auto) Pending [place] % (Auto) Pending Eos % (Auto) Pending Baso % (Auto) Pending Nucleat RBC Rel Count Pending Absolute Neuts (auto) Pending Absolute Lymphs (auto) Pending Absolute Monos (auto) Pending Absolute Eos (auto) Pending Absolute Basos (auto) Pending Absolute Nucleated RBC Pending Immature Gran % Pending Immature Gran # Pending Sodium Pending Potassium Pending Chloride Pending Carbon Dioxide Pending Anion Gap Pending BUN Pending Creatinine Pending Estimated GFR Pending Glucose Pending Calcium Pending Salicylates Pending Acetaminophen Pending Ethyl Alcohol Pending Departure - Departure Referrals: NONE *PRIMARY CARE P,. [Primary Care Provider] - As per Instructions
[2017-07-25 07:04] LABS: PLATELET COUNT 169 10^3/uL (150-400)
[2017-07-25] MEDS ORDERED: ONDANSETRON 4 MG/2 ML VIAL IVP PRN (07:17)
[2017-07-25] MEDS ORDERED: ACETAMINOPHEN 325 MG TAB PO PRN (07:17)
[2017-07-25] MEDS ORDERED: ONDANSETRON DISINTEGRATING 4 MG TAB PO PRN (07:17)
[2017-07-25] MEDS: ENOXAPARIN 40 MG/0.4 ML SYR SC SCH (10:40)
[2017-07-25] MEDS ORDERED: D50W 25 GM/50 ML SYR IVP PRN (13:19)
--- NOTE | 2017-07-25 13:52 | ASMTCASEMG ---
Living Arrangements What is your living Answers: Alone arrangement? Who do you live with? Type Of Residence What kind of residence do Answers: Homeless you live in? Discharge Plan Comments Coordination Status Comments Notes: Patient is a 62yo male who stated in the ER he was determined to end his suffering. Patient reports at 5:30 A.M. he took ten 10mg carvedilol and five 20mg amlodipine. He then decided he did not want to and called [facility] who brought him to the ER. Patient is on an M1 hold. Patient will need a psych eval when med cleared. CM will follow. Date Signed: 07/25/2017 01:51 PM Electronically Signed By:Alta Alvarado LCSW
[2017-07-25] MEDS: INSULIN LISPRO 100 UNIT/ML SC SCH ×2 (13:59→18:20)
--- NOTE | 2017-07-25 14:00 | GHP ---
[f rep st] HISTORY AND PHYSICAL Corrected report CHIEF COMPLAINT: Took blood pressure medicines. HISTORY OF PRESENT ILLNESS: This is a 62-year-old man with a history of depression who presents after attempting to commit suicide by taking blood pressure medications. He tells me he took about 5 Norvasc 10 mg tablets, as well as 10 Coreg 6.25 mg tablets. He tells me he is not having any palpitations , shortness of breath, or chest pain at this time. He tells me he has been depressed, feels that he is not contributing to society and racking up debt and feels as though it is his time to go. He had previously been living at [facility] for about 1 year while he was having a diabetic foot ulcer worked on. He is seeing a group in [place] who currently has him in a cast. He tells me that he was kicked out of [facility], I believe because of payment issues, at the beginning of the month and has been staying at a hotel ever since. He is very upset about his diabetic neuropathy which he describes is like gasoline burning on his legs. PAST MEDICAL/SURGICAL HISTORY: 1. Depression requiring ECT. 2. Diabetes mellitus type 2 with peripheral neuropathy. 3. GERD. 4. Hypertension. 5. Chronic nonhealing diabetic foot ulcer which he believes may have been growing MRSA at one point. MEDICATIONS: Please see medication reconciliation. ALLERGIES: Daptomycin and vancomycin. SOCIAL HISTORY: He smokes marijuana, he does not does drink or smoke tobacco regularly. FAMILY HISTORY: No depression. REVIEW OF SYSTEMS: A 10-point review of systems is conducted and is negative except per HPI. PHYSICAL EXAM: VITAL SIGNS: Blood pressure 117/61, heart rate 78, respiration rate is 18, saturating 96% on room air, temperature is 36.7. GENERAL: The patient is a pleasant man who is resting comfortably. Appears somewhat depressed. HEENT: Shows him to be normocephalic, atraumatic. CARDIOVASCULAR: Regular rate and rhythm. He is borderline bradycardic. There are no murmurs , rubs, or gallops. PULMONARY: Shows him to be in no respiratory distress. Lungs are clear to auscultation bilaterally. ABDOMEN: Soft, nontender, nondistended. SKIN: Shows no rash. : No Abebe. NEUROLOGIC: Shows him to be alert and oriented x3. He is moving all extremities. PSYCHIATRIC: Shows him to have a depressed affect. LABS: CBC is normal. Basic metabolic panel is normal. He is non negative for opiates and marijuana. DATA: 1. I reviewed his chart including Dr. White's note. 2. I personally viewed and interpreted his EKG, this shows sinus mingo, he has borderline QT prolongation. IMPRESSION AND PLAN: 1. Overdose: Approximately 60 mg of carvedilol, and 40 mg of amlodipine. Currently hemodynamically stable despite mild bradycardia. He is mentating well. I do not think he needs any treatment at this point, other than monitoring. His EKG looks relatively unremarkable other than being in sinus bradycardia. 2. Suicide attempt: He is on an M1 hold. He will be seen by our psychiatry team when he is medically cleared, I anticipate tomorrow. 3. Depression: Clearly an underlying issue. To be addressed by our psychiatry team. 4. Diabetes mellitus with nonhealing foot ulcer, as well as peripheral neuropathy: We will continue his insulin. He will follow up in [place] for the foot ulcer. He is currently in a cast and I am unable to view it. 5. Chronic pain on continuous narcotics: Continue his oxycodone and OxyContin. 6. Continue his gabapentin. 7. Hypertension: Hold his medications for now. /[id number]/MODL Yesenia JACE, 07/26/17, lianne CONROY
[2017-07-25] MEDS: oxyCODONE IR 15 MG TAB PO PRN (16:18)
[2017-07-25] MEDS: GABAPENTIN 400 MG CAP PO SCH ×2 (17:52→21:07)
[2017-07-25] MEDS ORDERED: INSULIN LISPRO 100 UNIT/ML SC SCH (18:00)
[2017-07-25] MEDS: INSULIN GLARGINE 100 UNITS/ML UNIT SC SCH (21:07)
[2017-07-25] MEDS: oxyCODONE CR 30 MG TAB PO SCH (21:07)
[2017-07-26] MEDS: GABAPENTIN 400 MG CAP PO SCH ×4 (08:03→20:06)
[2017-07-26] MEDS: INSULIN LISPRO 100 UNIT/ML SC SCH ×4 (08:40→16:40)
[2017-07-26] MEDS: ENOXAPARIN 40 MG/0.4 ML SYR SC SCH (09:31)
[2017-07-26] MEDS: oxyCODONE CR 30 MG TAB PO SCH ×2 (09:32→20:06)
[2017-07-26] MEDS: INSULIN GLARGINE 100 UNITS/ML UNIT SC SCH ×2 (09:32→20:06)
--- NOTE | 2017-07-26 10:57 | ASMTCMCOM ---
CM Note CM Note Notes: Patient is med clear - [facility] contacted. This will be a [facility] eval due to patient being an open case with them. CM will follow for disposition. Date Signed: 07/26/2017 10:56 AM Electronically Signed By:Alta Alvarado LCSW
--- NOTE | 2017-07-26 15:48 | HOSPPROG ---
Hospitalist Progress Note Assessment/Plan: # overdose of norvasc and coreg - no hemodynamic compromise - medically cleared # suicide attempt - seen by P, looking for inpatient psychiatry placement # non-healing diabetic foot ulcer - in an offloading cast; needs to be changed weekly on Sunday - will try to coordinate with his placement # DM2 - glucs borderline low - will slightly decrease glargine 64->55 bid - cont ssi lispro - may need to re-add lispro 13 QAC also # chronic pain on continuous narcotics # htn - have restarted norvasc, may need coreg Subjective: still endorses SI to me; discussed on ICU rounds, with Sydney from [facility] Objective: Vital Signs Temp Pulse Resp BP Pulse Ox 36.7 C 75 18 144/72 H 96 07/26/17 12:00 07/26/17 14:00 07/26/17 14:00 07/26/17 14:19 07/26/17 14:00 07/25/17 07/26/17 07/27/17 05:59 05:59 05:59 Intake Total 950 650 Output Total 1360 600 Balance -410 50 - Time Spent With Patient Time Spent with Patient: greater than 35 minutes Time Spent with Patient: Greater than 35 minutes spent on this patients care, greater than 50% of time spent counseling, educating, and coordinating care regarding the above mentioned plan. - Physical Exam Constitutional: no apparent distress, appears nourished Cardiovascular: regular rate and rhythym, no murmur, rub, or gallop Respiratory: no respiratory distress, no rales or rhonchi Gastrointestinal: soft, non-tender abdomen, no palpable masses ICD10 Worksheet Patient Problems: Problems Problem Status Onset Diabetic foot ulcer Acute Cellulitis Acute Hyperkalemia Acute MRSA (methicillin resistant Staphylococcus aureus) Acute 03/30/16 Diabetes mellitus Acute Hyperglycemia Acute Osteomyelitis of ankle or foot Acute Abdominal pain Acute
--- NOTE | 2017-07-26 16:41 | GDS ---
[f rep st] DISCHARGE SUMMARY FINAL DIAGNOSES: 1. Mild overdose of amlodipine and carvedilol. 2. Suicide attempt. 3. Nonhealing diabetic foot ulcer. 4. Diabetes mellitus type 2 with peripheral neuropathy. 5. Chronic pain, on continuous narcotics. 6. Hypertension. HOSPITAL COURSE: 62-year-old man who was admitted after an overdose of Norvasc and Coreg. He took a pproximately 50 mg of Norvasc and 60 mg of Coreg. He had no significant hemodynamic compromise, and is actually hypertensive on the day following admission. This overdose was a clear suicide attempt as he attests to. [facility] He has been accepted by Dr. Escobar at our inpatient psychiatr y unit at [place]. He has a nonhealing diabetic foot ulcer. He is currently in a total contact cast which is an offload ing-type cast to allow this to heal. He is followed at [facility] for this. This cast need s to be changed, and is also re-evaluated every Sunday. Discussed this with our wound care team as hung srivastava as administration, and we will either arrange for somebody from Wound Care to come to our [facility] unit on Sunday to change this or arrange for transportation for him to go to [facility] for this. He has diabetes mellitus type 2. His glucoses have been borderline low. We have actually been holdi ng his insulin. I have decreased his glargine from 64 units to 55 units b.i.d. For now, we will con tinue with sliding scale lispro. He also had 13 units q.a.c. which he has not been receiving. Recom mended that he be followed every few days by Internal Medicine or family medicine physician for manag ement of his blood glucoses while at [facility]. He has chronic pain, on continuous narcotics. I have continued these. Hypertension: He is hypertensive. I have restarted his amlodipine and Coreg. BILLING: I spent more than 30 minutes on the day of discharge coordinating care. /[id number]/MODL
--- NOTE | 2017-07-26 17:56 | ASMTCMCOM ---
CM Note CM Note Notes: Patient was initially cleared to go to [facility] unit, however, patient is on MRSA isolation and states they are not equipped to manage that on their unit. Patient will need to be off MRSA isolation before we can transfer patient. Also, we need a transfer of care summary to complete the d/c. There is a discharge summary but no transfer of care summary. PER was also notified because their report is not in the computer yet. Pema will finish it and get it in tonight. Pema did call and gave them the insurance auth information from [facility]. Discharge can be finalized tomorrow when these details are complete. CM will follow. Date Signed: 07/26/2017 05:55 PM Electronically Signed By:Alta Alvarado LCSW
[2017-07-26] MEDS: oxyCODONE IR 15 MG TAB PO PRN (20:06)
[2017-07-27] MEDS: INSULIN LISPRO 100 UNIT/ML SC SCH (08:07)
[2017-07-27 08:10] VITALS: PULSE 66; RESP 18; TEMP 98.2; O2SAT 98
[2017-07-27] MEDS: INSULIN GLARGINE 100 UNITS/ML UNIT SC SCH (08:23)
[2017-07-27] MEDS: GABAPENTIN 400 MG CAP PO SCH (08:23)
[2017-07-27] MEDS: ENOXAPARIN 40 MG/0.4 ML SYR SC SCH (08:23)
[2017-07-27] MEDS: oxyCODONE IR 15 MG TAB PO PRN (08:24)
[2017-07-27] MEDS: oxyCODONE CR 30 MG TAB PO SCH (08:24)
--- NOTE | 2017-07-27 09:33 | PDIAF ---
- Diagnosis Diagnosis: Suicide Attempt Code Status: Full Code - Medication Management Discharge Medications: Medications to Continue on Transfer Gabapentin [Neurontin 400 MG (*)] 800 mg PO TIDMEAL #90 cap 08/23/16 [Last Taken 07/25/17 05:00] oxyCODONE CR [Oxycontin] 30 mg PO BID #30 tab 08/23/16 [Last Taken 07/24/17] Carvedilol [Coreg (*)] 6.25 mg PO BIDMEAL 02/08/17 [Last Taken 07/25/17 05:00] Cholecalciferol Vit D3 [Vitamin D3 (*)] 50,000 unit PO TU 02/08/17 [Last Taken 07/24/17] Gabapentin [Neurontin 400 MG (*)] 1,200 mg PO HS 02/08/17 [Last Taken 07/24/17] amLODIPine BESYLATE [Norvasc 10 mg (*)] 10 mg PO DAILY 02/08/17 [Last Taken 05:00] oxyCODONE IR [Oxycodone Ir (*)] 15 mg PO Q4 PRN 07/25/17 [Last Taken 07/24/17] Insulin Glargine [Lantus Syringe] 55 units SC BID unit 07/26/17 [Last Taken Unknown] Insulin Lispro [HumaLOG LISPRO] 0 unit SC TIDMEAL unit 07/26/17 [Last Taken Unknown] Discharge Medications: Refer to the Discharge Home Medication list for PRN reason. - Orders Isolation Type: Contact Isolation Diet Recommendation: no restrictions on diet Activity/Weight Bearing Restrictions: cast needs to be removed every Sunday, ulcer assessed by wound care, then replaced - Follow Up Care Current Providers and Referrals: NONE *PRIMARY CARE P,. [Unknown] - As per Instructions Kalen Guerrero MD [Medical Doctor] - follow up in 2 weeks ()
[2017-07-27 09:42] VITALS: BP 163/81
--- NOTE | 2017-07-27 13:29 | GDS ---
[f rep st] DISCHARGE SUMMARY ALL DIAGNOSES: 1. Mild overdose of amlodipine and carvedilol. 2. Suicide attempt. 3. Nonhealing diabetic foot ulcer. 4. Diabetes mellitus, type 2, with peripheral neuropathy. 5. Chronic pain, on continuous narcotics. 6. Hypertension. 7. Pancreatic lesion, being followed by Dr. Guerrero. HOSPITAL COURSE: This is a 62-year-old man who was admitted to the hospital after a mild overdose of approximately 50 mg of Norvasc and 60 mg of carvedilol. He did not have any significant hemodynamic compromise. He has been restarted on these medications. This overdose was clearly a suicide attempt. He has been accepted to [facility] for ongoing psychiatric stabilization. He has a pancreatic tumor which had been previously worked up by Dr. Guerrero. At this point, it is more likely to be benign than malignant, however, he needs clear follow up with Dr. Guerrero. I put this on his discharge paperwork. Recommend followup in 1-2 weeks after discharge from [facility]. He has a nonhealing diabetic foot ulcer. He has a total contact cast in place, which is an offloadin g cast for this ulcer. He is followed at [facility] for this. He needs to have this cast r emoved every Sunday, the ulcer assessed by Wound Care, then cast replaced. He should follow up with [facility] after he is discharged from the hospital. He has diabetes mellitus. His glucoses have been somewhat borderline low. I have slightly decreased his glargine from 64 units b.i.d. to 55 units b.i.d. He should continue on sliding scale insulin. He should be periodically followed by Internal Medicine for ongoing management of his blood sugars. BILLING: I spent more than 30 minutes on the day of discharge coordinating care. /[id number]/MODL
== END 2017-07-27 10:29 ==
LOC: EDUNIT# → EEVIPCON 07:30 → F2N 12:11
PROVIDERS: ADMIT Family Medicine; ATTEND Family Medicine
DX: T44.7X2A Poisoning by beta-adrenoreceptor antagonists, intentional self-harm, initial encounter (principal); T46.1X2A Poisoning by calcium-channel blockers, intentional self-harm, initial encounter; F32.9 Major depressive disorder, single episode, unspecified; E11.40 Type 2 diabetes mellitus with diabetic neuropathy, unspecified; E11.621 Type 2 diabetes mellitus with foot ulcer; F11.20 Opioid dependence, uncomplicated; L97.909 Non-pressure chronic ulcer of unspecified part of unspecified lower leg with unspecified severity; G89.29 Other chronic pain; I10 Essential (primary) hypertension; K86.2 Cyst of pancreas; F12.90 Cannabis use, unspecified, uncomplicated; B95.62 Methicillin resistant Staphylococcus aureus infection as the cause of diseases classified elsewhere
CPT/HCPCS: 90791; 93005; G0378; J1650; J1815; 80305; G0480

== ENCOUNTER 2017-07-27 10:56 | Inpatient (IN) | payer OTHER, MEDICAID ==
[2017-07-27] MEDS ORDERED: MAG HYDROX/AL HYDROX/SIMETH 30 ML UDCUP PO PRN (11:45)
[2017-07-27] MEDS ORDERED: MAGNESIUM HYDROXIDE 30 ML UDCUP PO PRN (11:45)
[2017-07-27] MEDS ORDERED: hydrOXYzine HCL 25 MG TAB PO PRN (12:34)
[2017-07-27] MEDS ORDERED: FAMOTIDINE 20 MG TAB PO PRN (12:37)
[2017-07-27] MEDS: ARIPiprazole 2 MG TAB PO SCH (14:20)
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
[2017-07-27] MEDS: DULoxetine 20 MG CAP PO SCH (14:21)
[2017-07-27] MEDS: GABAPENTIN 400 MG CAP PO SCH ×2 (15:35→20:04)
[2017-07-27] MEDS: oxyCODONE IR 15 MG TAB PO PRN ×2 (15:36→20:04)
[2017-07-27] MEDS ORDERED: GABAPENTIN 400 MG CAP PO SCH (16:00)
--- NOTE | 2017-07-27 16:10 | BCON ---
[f rep st] BEHAVIORAL HEALTH CONSULTATION INTERNAL MEDICINE CONSULTATION DATE OF CONSULTATION: 07/27/2017 REFERRING PHYSICIAN: Basim Escobar MD REASON FOR REFERRAL: Medical clearance for inpatient behavioral health stay. HISTORY OF PRESENT ILLNESS: This patient was admitted from [facility], where he had presented with suicidality and report of having overdosed on blood pressure medications. He had recently been discharged from [facility] and he is currently homeless and reports that he is staying in motels. He was evaluated by the mental health team and once he was medically stabilized, he was transferred to Inpatient Behavioral Health for continued psychiatric care. He is currently without any acute medical complaints. PAST MEDICAL HISTORY: 1. Diabetes mellitus type 2. 2. Hypertension. 3. Episode of acute renal insufficiency. 4. Diabetic foot ulcers. He is currently under limb preservation treatment with a hard cast on the left lower extremity which gets changed every week. 5. Peripheral neuropathy. 6. Chronic pain. PAST SURGICAL HISTORY: He has had several amputations and has only 3 toes on each foot. MEDICATIONS: Discharge medications from [facility] are as follows: 1. Gabapentin 800 mg p.o. three times daily and 1200 mg at bedtime. 2. Carvedilol 6.5 mg twice daily. 3. Oxycodone continuous release 30 mg twice a day. 4. Vitamin D. 5. Amlodipine 10 mg daily. 6. Lantus insulin 55 units subcutaneous twice daily. 7. Sliding scale of insulin lispro with meals. 8. Oxycodone 15 mg on a p.r.n. basis for pain. ALLERGIES: There are allergies listed to daptomycin and vancomycin. SOCIAL HISTORY: He was recently released from [facility] where he had been, he reports, for approximately a year for medical treatment regarding his diabetic foot ulcers. 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 He is currently homeless. He is a chronic marijuana user since 1966. He reports that he started smoking at [facility], but has since discontinued smoking and does not have a craving for tobacco. He has been on social security disability for about 10 years due to medical and mental health problems. He is . He has 3 children in [place]. FAMILY HISTORY: His mother of renal cell carcinoma and his father of coronary artery disease following a thoracic injury in the [place]. REVIEW OF SYSTEMS: He denies weight change, fevers, chills, cough, dyspnea, nausea, vomiting, constipation, diarrhea, chest pain, palpitations, urinary frequency or dysuria and otherwise, a 10-point review of systems is negative. Of note, current pain status was not discussed. PHYSICAL EXAM: VITAL SIGNS: Blood pressure is 157/73, heart rate is 86, respiratory rate is not recorded, oxygen saturation is 97% on room air. Temperature is 36.6 degrees centigrade. His weight is 113.4 kg for a body mass index of 31.2. GENERAL: This is an overweight appearing man, appears his chronologic age, dressed in hospital gown and hospital pants, cooperative and in no acute distress. HEENT: Extraocular movements are intact. Pupils are equal, round and reactive to light. Mucous membranes are moist. Dentition is absent. He is edentulous. He has an uncrowded airway, Mallampati class 1. NECK: Supple. HEART: Regular rate and rhythm with no murmurs, rubs, or gallops. Heart sounds are somewhat distant. LUNGS: Clear to auscultation bilaterally. ABDOMEN: Benign. EXTREMITIES: There is no cyanosis, clubbing, or edema. His left lower extremity is in a hard cast with a walking boot. NEUROLOGIC: He is alert and oriented x3. Cranial nerves 2-12 are grossly intact. There is no focal weakness. Sensation overall is intact to light touch but was not tested on casted foot. Gait is within normal limits. He uses a walker. LABORATORY STUDIES: From his recent hospitalization, CBC was overall within normal limits with minor alterations of MCH, high RDW, and a high mean platelet volume of no clinical significance. Serum chemistry revealed normal renal function and electrolytes. Glucose was mildly elevated at 113, and blood sugar checks ranged from 100-184, but generally were not in the range to require supplemental insulin. Toxicology screen in the serum was negative for salicylates, acetaminophen or ethyl alcohol and in the urine, was non-negative for opiates and marijuana but otherwise negative for substances of abuse. ASSESSMENT/RECOMMENDATIONS: 1. Mental health issues, pending further evaluation and management per Psychiatry and the mental health team. 2. Diabetes mellitus type 2. Unclear why he is not on metformin. For now, it is okay to continue his insulin glargine at 55 units twice daily. I will also order a standard insulin sliding scale, though he has not been needing it during his recent hospitalization. 3. Hypertension. Apparently, he was previously on lisinopril and this was discontinued. He currently has normal renal function. When he had acute renal insufficiency in the past, he was also on a diuretic, which he does not require at present. Should his blood pressure continue to be elevated, it would probably be in his best interest to add lisinopril starting at a low dose. Blood pressure was variable during his recent hospitalization, was often at target and was sometimes elevated, so advise continued monitoring. 4. Diabetic foot ulcers and peripheral neuropathy. Advise attempting to contact the [facility] which is managing his hard cast and his ulceration on the left foot, and maintain compliance with the schedule of wound assessment and cast replacement. 5. Chronic pain. Discussed with Psychiatrist, who questions the indication for chronic long-acting opiates. He is currently on oxycodone 15 mg q.4 hours p.r.n. as well as maximal dose of gabapentin. Advise monitoring his pain response and adjusting medications as indicated. 6. History of dyslipidemia. He was previously on simvastatin. While he was on simvastatin, he had a benign lipid profile. I will start atorvastatin at 40 mg daily as it is indicated in a diabetic with history of dyslipidemia. I see no medical contraindications to this patient's continued stay on the inpatient behavioral health unit, or to any psychiatric medications or procedures. Thank you very much for including me in the care of this patient and please do not hesitate to contact me or the hospitalist service should there be need for further medical evaluation. /[id number]/MODL MTDD
[2017-07-27] MEDS: CARVEDILOL 3.125 MG TAB PO SCH (17:26)
[2017-07-27] MEDS ORDERED: CARVEDILOL 6.25 MG TAB PO SCH (18:00)
[2017-07-27] MEDS: INSULIN GLARGINE 100 UNITS/ML UNIT SC SCH (20:04)
[2017-07-28] MEDS: ACETAMINOPHEN 325 MG TAB PO PRN (01:44)
[2017-07-28] MEDS: GABAPENTIN 400 MG CAP PO PRN (01:48)
[2017-07-28] MEDS: oxyCODONE IR 15 MG TAB PO PRN ×5 (01:48→20:06)
[2017-07-28] MEDS: OLANZapine DISINTEGR 10 MG TAB PO PRN (03:10)
[2017-07-28] MEDS: GABAPENTIN 400 MG CAP PO SCH ×4 (05:46→20:06)
[2017-07-28] MEDS: ATORVASTATIN CALCIUM 40 MG TAB PO SCH (09:02)
[2017-07-28] MEDS: CARVEDILOL 3.125 MG TAB PO SCH ×2 (09:02→18:19)
[2017-07-28] MEDS: ARIPiprazole 2 MG TAB PO SCH (09:02)
[2017-07-28] MEDS: CHOLECALCIFEROL VIT D3 2,000 UNITS TAB/CAP PO SCH (09:03)
[2017-07-28] MEDS: ASPIRIN EC 81 MG TAB PO SCH (09:03)
[2017-07-28] MEDS: DULoxetine 20 MG CAP PO SCH (09:03)
[2017-07-28] MEDS: amLODIPine BESYLATE 5 MG TAB PO SCH (09:04)
[2017-07-28] MEDS: INSULIN GLARGINE 100 UNITS/ML UNIT SC SCH ×2 (09:04→20:06)
--- NOTE | 2017-07-28 14:12 | SOAPPROG ---
SOOL[facility] Progress Note Assessment/Plan: Assessment: 07/28/17 15:20 per staff, slept 4hr. has been complaining about med changes with d/c of his long acting narcotic. 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 Complained of his chronic pain, primarily neuropathy, causing him to feel depressed and suicidal, and now his bid long- acting oxycontin has been d/c'd. Admitted that it was no longer working as well as it had in past, providing pain relief for only 2-3hr "but 6hr/day is better than none!" Lists orthopedic pains of back, hip, and neuropathic pains of "stinging, burning" in feet/toes which comes and goes. States high dose Gabapentin used to help but "quit working", and hydroxyzine prn not helping with his anxiety. Recently started Cymbalta 20 and Abilify 2 since admission. Denies any med s/e. Talked of residing at [facility] for 2 yr until "they said I was too healthy to stay and they kicked me out...with no follow-up, no good plan...I think it's because I owed them $12K and they didn't want to put that on paper." cooperative with interview, good eye contact, casually dressed, L foot in cast, edentulous but articulate, with nml speech rate/vol, somewhat irritated tone but more pleasant and engaging as interview progressed and pt was allowed to vent frustrations. mood "disconcerted". affect dysphoric, frustrated. denied any current plan/intent to harm self but reports feeling having suicidal wishes related to ending his physical pain and suffering. also feels he has lived longer than any other males in his family (62yo, pt is 62yo), and has no other close relationships or reason to feel hopeful due to his current medical condition he perceives will only continue to progressively worsen. thoughts reality based without delusions, but with perseveration on chronic pain and medical problems.denied any AH/VH or any thoughts to harm others. cognition intact. insight fair, jdgmt impaired. PLAN: -reviewed understood med changes with his opiates upon review of EMR and primary team plan, informed he has IR avail more frequently and needs to request it when needed in order to best determine what dose pt ends up actually needing. reviewed risks of opiates and appropriate indications. pt expressed understanding but not necessarily agreement -cont Cymbalta, Abilify, Gabapentin. states Lyrica didn't help him in past. -cont other medical meds -encouraged group attendance/participation. -cont VOL status and SP-1 Objective: Vital Signs Temp Pulse Resp BP Pulse Ox 36.2 C 71 16 127/73 H 97 07/28/17 01:50 07/28/17 01:50 07/28/17 01:50 07/28/17 01:50 07/28/17 01:50 - Time Spent With Patient Time Spent With Patient: 45min - Pending Discharge Pending Discharge Within 24 Hours: No Pending Discharge Within 48 Hours: No ICD10 Worksheet Patient Problems: Problems Problem Status Onset Bipolar 2 disorder Acute Suicidal ideation Acute Abdominal pain Acute Cellulitis Acute Diabetes mellitus Acute Diabetic foot ulcer Acute Hyperglycemia Acute Hyperkalemia Acute MRSA (methicillin resistant Staphylococcus aureus) Acute 03/30/16 Osteomyelitis of ankle or foot Acute
[2017-07-29] MEDS: OLANZapine DISINTEGR 10 MG TAB PO PRN ×3 (00:43→21:25)
[2017-07-29] MEDS: GABAPENTIN 400 MG CAP PO PRN (00:45)
[2017-07-29] MEDS: ACETAMINOPHEN 325 MG TAB PO PRN ×5 (00:45→19:32)
[2017-07-29] MEDS: hydrOXYzine HCL 25 MG TAB PO PRN ×4 (00:45→23:53)
[2017-07-29] MEDS: oxyCODONE IR 15 MG TAB PO PRN ×5 (00:46→23:54)
[2017-07-29] MEDS: GABAPENTIN 400 MG CAP PO SCH ×4 (06:33→21:21)
[2017-07-29] MEDS: amLODIPine BESYLATE 5 MG TAB PO SCH (07:55)
[2017-07-29] MEDS: DULoxetine 20 MG CAP PO SCH (07:56)
[2017-07-29] MEDS: CHOLECALCIFEROL VIT D3 2,000 UNITS TAB/CAP PO SCH (07:56)
[2017-07-29] MEDS: INSULIN GLARGINE 100 UNITS/ML UNIT SC SCH ×2 (08:00→21:21)
[2017-07-29] MEDS: ASPIRIN EC 81 MG TAB PO SCH (08:00)
[2017-07-29] MEDS: ATORVASTATIN CALCIUM 40 MG TAB PO SCH (08:00)
[2017-07-29] MEDS: ARIPiprazole 2 MG TAB PO SCH (08:03)
[2017-07-29] MEDS: CARVEDILOL 3.125 MG TAB PO SCH ×2 (08:20→17:25)
[2017-07-29] MEDS ORDERED: INSULIN LISPRO 100 UNIT/ML SC ONE (17:30)
[2017-07-30] MEDS: GABAPENTIN 400 MG CAP PO SCH ×4 (05:58→20:55)
[2017-07-30] MEDS: oxyCODONE IR 15 MG TAB PO PRN (05:59)
--- NOTE | 2017-07-30 07:10 | SOAPPROG ---
SOAP Progress Note Assessment/Plan: Assessment: Bipolar Disorder type 2 - depressed Cannabis Use Disorder Chronic Opioid Dependence IDDM with neuropathy, bilateral toe amputations Left foot wound, cast Hypertension, history of CAD Homeless, no supports in area Patient appears less angry, irritable, dysphoric. Patient reported SI to OD on medications prior to admit concurrent with financial and housing stressors and complex medical issues. Patient was taking up to 120mg/day of Oxycodone prior to admission, has taken 75m/day over weekend without sedation. Plan: Patient is voluntary Increase Cymbalta 20mg BID for neuropathy and depression Discontinue Abilify, schedule Olanzapine 10mg QHS for bipolar disorder and insomnia, discussed risk of hyperglycemia Continue TID AC glucometers, BID Lantus, schedule 3 units TID Humalog insulin with meals Continue cardiac medications (ASA, Carvedilol) Schedule Oxycodone-CR/LA 30mg BID Oxycodone-IR 15mg once a day PRN wound care; PRN Tylenol; continue scheduled Gabapentin 800mg four times a day Wound Care consult Patient walks with walker Refer to [facility] Patient reports PCP appointment with Dr. Anthony Ward - [facility] [phone] next week Encouraged patient to continue attempts to reach son in [place] Supportive psychotherapy 07/30/17 07:13 Subjective: CC: "Not in such a dark hole" "a little better" Patient reports over weekend having brief SI related to foot pain. Reports this AM feeling less hopeless and wants to live for son. Reports goal of getting housing and then follow up medical evaluation for possible pancreatic tumor. Reports sleeping better with Zyprexa and feels it reduces irritablity, anger, and dysphoric and wants to take regularly despite risk of hyperglycemia. Reports normal taking 3 units regular insulin with meals. Reports foot cast on left foot followed a toe amputation 4 months ago, had incomplete wound healing without infection per his report. Reports feeling overwhelmed due to complex medical problems and complex medication regimen and homelessness. Reports he was discharged from [facility] 07/05/17. Patient reports PCP appointment next week on 08/06/17 Objective: Vital Signs Temp Pulse Resp BP Pulse Ox 36.3 C 65 14 177/87 H 97 07/30/17 06:27 07/30/17 06:27 07/30/17 06:27 07/30/17 06:27 07/30/17 06:27 Alert WM walks with left food cast. Walks slowly with walker. Speech RRR. Mood "Not in such a dark hole" "a little better" Affect briefly irritable at times. Brief smiling and humor. Thoughts organized. Reports brief SI in past 24 hours related to foot pain. Reports wanting to be well for son and to get stable housing and further medical treatments. Denies HI or AH or paranoia. Limited insight. Questionable judgment. Staff report patient taking Olanzapine nightly for insomnia and agitation. Taking Oxycodone 15mg IR five times daily over past 3 days. Per PDMP, was taking Oxycontin 30mg BID and Oxycodone 15mg four times a day ( 120mg/day), Dr. Ward [facility]. Patient not currently having opioid withdrawal symptoms. - Time Spent With Patient Time Spent With Patient: 40 minutes - Pending Discharge Pending Discharge Within 24 Hours: No Pending Discharge Within 48 Hours: No ICD10 Worksheet Patient Problems: Problems Problem Status Onset Bipolar 2 disorder Acute Suicidal ideation Acute Abdominal pain Acute Cellulitis Acute Diabetes mellitus Acute Diabetic foot ulcer Acute Hyperglycemia Acute Hyperkalemia Acute MRSA (methicillin resistant Staphylococcus aureus) Acute 03/30/16 Osteomyelitis of ankle or foot Acute
[2017-07-30] MEDS: INSULIN GLARGINE 100 UNITS/ML UNIT SC SCH ×2 (08:11→20:57)
[2017-07-30] MEDS: INSULIN LISPRO 100 UNIT/ML SC SCH ×3 (08:12→16:48)
[2017-07-30] MEDS: CHOLECALCIFEROL VIT D3 2,000 UNITS TAB/CAP PO SCH (08:15)
[2017-07-30] MEDS: CARVEDILOL 3.125 MG TAB PO SCH ×2 (08:16→17:25)
[2017-07-30] MEDS: DULoxetine 20 MG CAP PO SCH ×2 (08:16→20:56)
[2017-07-30] MEDS: ATORVASTATIN CALCIUM 40 MG TAB PO SCH (08:16)
[2017-07-30] MEDS: amLODIPine BESYLATE 5 MG TAB PO SCH (08:17)
[2017-07-30] MEDS: ASPIRIN EC 81 MG TAB PO SCH (08:18)
[2017-07-30] MEDS: oxyCODONE CR 30 MG TAB PO SCH ×2 (08:25→20:56)
--- NOTE | 2017-07-30 14:22 | SOAPPROG ---
SOOLY Progress Note Assessment/Plan: Assessment: 07/28/17 15:20 per staff, slept 4hr. has been complaining about med changes with d/c of his long acting narcotic. 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 Complained of his chronic pain, primarily neuropathy, causing him to feel depressed and suicidal, and now his bid long- acting oxycontin has been d/c'd. Admitted that it was no longer working as well as it had in past, providing pain relief for only 2-3hr "but 6hr/day is better than none!" Lists orthopedic pains of back, hip, and neuropathic pains of "stinging, burning" in feet/toes which comes and goes. States high dose Gabapentin used to help but "quit working", and hydroxyzine prn not helping with his anxiety. Recently started Cymbalta 20 and Abilify 2 since admission. Denies any med s/e. Talked of residing at [facility] for 2 yr until "they said I was too healthy to stay and they kicked me out...with no follow-up, no good plan...I think it's because I owed them $12K and they didn't want to put that on paper." cooperative with interview, good eye contact, casually dressed, L foot in cast, edentulous but articulate, with nml speech rate/vol, somewhat irritated tone but more pleasant and engaging as interview progressed and pt was allowed to vent frustrations. mood "disconcerted". affect dysphoric, frustrated. denied any current plan/intent to harm self but reports feeling having suicidal wishes related to ending his physical pain and suffering. also feels he has lived longer than any other males in his family (62yo, pt is 62yo), and has no other close relationships or reason to feel hopeful due to his current medical condition he perceives will only continue to progressively worsen. thoughts reality based without delusions, but with perseveration on chronic pain and medical problems.denied any AH/VH or any thoughts to harm others. cognition intact. insight fair, jdgmt impaired. PLAN: -reviewed understood med changes with his opiates upon review of EMR and primary team plan, informed he has IR avail more frequently and needs to request it when needed in order to best determine what dose pt ends up actually needing. reviewed risks of opiates and appropriate indications. pt expressed understanding but not necessarily agreement -cont Cymbalta, Abilify, Gabapentin. states Lyrica didn't help him in past. -cont other medical meds -encouraged group attendance/participation. -cont VOL status and SP-1 07/29/17 13:55 late entry. slept 7hr. staff report he denies SI but would like to discuss plan for assisted suicide b/c of pain. admitted to clinical care leader that he called 911 after suicide attempt b/c he does have ambivalence about dying. pt started interview complaining of burning pain in feet, "horrendous, excruciating...I pray for ", and tinnitis "severe today" which in past just "comes and goes". also not using his medical THC here, which helps his pain. continued to express frustration around the changing around of his pain medication, and was reminded that he had complained prior med regimen was not helping for pain as well as in past which contributed to his SI, so med changes were necessary and indicated, since it would not be good standard of care to just keep increasing opiates for neuropathic pain. reminded pt he could request the IR as often as q4hr. states pain was "managed" for 20yrs with his opiate dose at level 4-5/10, now it's 9/10. maintains he is not a [facility] patient, just complaining b/c meds have been "reduced by 50%" clinical care leader present during interview. pt had reported that he took OD on pills not because he was depressed, but b/c felt he had no quality of life. calm, cooperative, nml speech rate/vol, good EC, mood in pain", affect appropriate range to content of conversation but did not clinically appear in "horrendous excruciating" pain as he described. linear thoughts, goal-directed responses, and able to engage in future-planning/future-oriented thinking as interview progressed. denied current SI, no thoughts to harm others. cognition conversationally intact. i/j both seem fair. PLAN: -continue current medications, encouraged to use IR oxy when needed and t/w primary team in am -cont voluntary status. On SP-1. states he has no plan/intent to harm self on unit. SI related to pain and quality of life. pt expressed some immediate positive things he is looking forward to as below: -states he has been in contact with family members, has talked to son who is possibly going to move to [place] and live with him. would like this, he states. -also learned recently from his sister that he has an inheritance coming to him , which pt admits he has been in the process to trying to claim, just needing to confirm identity and get through necessary paperwork. if receives this, " that will help me get a place to live". -has PCP appt in [place] on 08/06, and needs this for referral to pain management clinic. 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 states he would like to do this, as it would provide some meaning for him. -mentions need to and plan to have f/u for his pancreas lesion after d/c. states he has family hx of CA and acknowledges realistic concerns. - f/u with [facility] for mental health tx Objective: Vital Signs Temp Pulse Resp BP Pulse Ox 36.3 C 65 14 177/87 H 97 07/30/17 06:27 07/30/17 06:27 07/30/17 06:27 07/30/17 06:27 07/30/17 06:27 - Time Spent With Patient Time Spent With Patient: 35min - Pending Discharge Pending Discharge Within 24 Hours: No Pending Discharge Within 48 Hours: No ICD10 Worksheet Patient Problems: Problems Problem Status Onset Bipolar 2 disorder Acute Suicidal ideation Acute Abdominal pain Acute Cellulitis Acute Diabetes mellitus Acute Diabetic foot ulcer Acute Hyperglycemia Acute Hyperkalemia Acute MRSA (methicillin resistant Staphylococcus aureus) Acute 03/30/16 Osteomyelitis of ankle or foot Acute
[2017-07-30] MEDS: OLANZapine DISINTEGR 10 MG TAB PO PRN (15:53)
[2017-07-30] MEDS: OLANZapine 10 MG TAB PO SCH (20:56)
[2017-07-31] MEDS: hydrOXYzine HCL 25 MG TAB PO PRN ×2 (02:33→19:32)
[2017-07-31] MEDS: GABAPENTIN 400 MG CAP PO SCH ×4 (06:04→19:32)
[2017-07-31] MEDS: CHOLECALCIFEROL VIT D3 2,000 UNITS TAB/CAP PO SCH (08:06)
[2017-07-31] MEDS: ATORVASTATIN CALCIUM 40 MG TAB PO SCH (08:07)
[2017-07-31] MEDS: DULoxetine 20 MG CAP PO SCH ×2 (08:07→19:32)
[2017-07-31] MEDS: amLODIPine BESYLATE 5 MG TAB PO SCH (08:07)
[2017-07-31] MEDS: ASPIRIN EC 81 MG TAB PO SCH (08:08)
[2017-07-31] MEDS: CARVEDILOL 3.125 MG TAB PO SCH ×2 (08:08→18:18)
[2017-07-31] MEDS: oxyCODONE CR 30 MG TAB PO SCH ×2 (08:09→19:33)
[2017-07-31] MEDS: INSULIN LISPRO 100 UNIT/ML SC SCH ×3 (08:09→18:26)
[2017-07-31] MEDS: INSULIN GLARGINE 100 UNITS/ML UNIT SC SCH ×3 (08:11→19:42)
--- NOTE | 2017-07-31 12:17 | SOAPPROG ---
SOAP Progress Note Assessment/Plan: Assessment: Bipolar Disorder type 2 - depressed Cannabis Use Disorder Chronic Opioid Dependence IDDM with neuropathy, bilateral toe amputations Left foot wound, cast Hypertension, history of CAD Homeless, no supports in area Patient appears less angry, irritable, dysphoric; denies SI but has recurrent thoughts of . Patient has multiple risk factors for suicide: WM, 62yo, no immediate supports , chronic pain, access to lethal medications (insulin, oxycodone). Patient reported SI to OD on medications prior to admit concurrent with financial and housing stressors and complex medical issues. Patient was taking up to 120mg/day of Oxycodone prior to admission Plan: Patient is voluntary Continue Cymbalta 20mg BID for neuropathy and depression, increased 07/30/17 Continue Olanzapine 10mg QHS for bipolar disorder and insomnia, discussed risk of hyperglycemia Continue TID AC glucometers, BID Lantus, schedule 3 units TID Humalog insulin with meals Continue cardiac medications (ASA, Carvedilol) Schedule Oxycodone-CR/LA 30mg BID Oxycodone-IR 15mg once a day PRN wound care; PRN Tylenol; continue scheduled Gabapentin 800mg four times a day Wound Care consult pending for cast removal and re-assessment of toe amputation wound on left foot Patient walks with walker Refer to [facility] Patient reports PCP appointment with Dr. Anthony Ward - [facility] [phone] on 08/06/17 Supportive psychotherapy Coordinate discharge planning with son Monitor mood stability and risk of self harm 07/31/17 12:17 Subjective: CC: "Better than before" Patient reports reduced pain than previous. Reports being more hopeful due to being able to reach son on phone in [place] and has plan to travel there after medical visit with PCP on 08/06/17. Reports some anxiety regarding medical disability. Reports goal is to get cast removed today by wound care nurse. Denies agitation or violent thoughts or racing thoughts. Reports wanting to live for son and daughter and grandchildren but is fearful of feeling depressed and suicidal if mood not stable. Reports tolerating Zyprexa and Cymbalta and doesn't want medications changed. Objective: Vital Signs Temp Pulse Resp BP Pulse Ox 36.2 C 72 16 125/67 H 95 07/31/17 02:40 07/31/17 08:08 07/31/17 02:40 07/31/17 08:08 07/31/17 02:40 Alert WM walks with left food cast. Walks slowly with walker. Speech RRR. Mood "better than before" Affect restricted. Thoughts organized. Denies SI but reports thoughts of being over past 24 hours, denies plan/intent to harm self. Denies violent thoughts. Reports wanting to be well for son and to get stable housing and further medical treatments. Denies HI or AH or paranoia. Limited insight. Questionable judgment. Last 2 glucometers 107, 143. Staff report patient slept 9 hours, able to attend some groups. - Time Spent With Patient Time Spent With Patient: 30 minutes - Pending Discharge Pending Discharge Within 24 Hours: No Pending Discharge Within 48 Hours: No ICD10 Worksheet Patient Problems: Problems Problem Status Onset Bipolar 2 disorder Acute Suicidal ideation Acute Abdominal pain Acute Cellulitis Acute Diabetes mellitus Acute Diabetic foot ulcer Acute Hyperglycemia Acute Hyperkalemia Acute MRSA (methicillin resistant Staphylococcus aureus) Acute 03/30/16 Osteomyelitis of ankle or foot Acute
--- NOTE | 2017-07-31 15:21 | WOCRNPDOC ---
WOCRN Advanced Assessment Note - Skin Integrity Problem, Advanced Assess Left First Toe Diabetic Ulcer Dressing Type: Non-Bordered Foam, Other Other Dressing Type: Total contact cast Dressing Description: Clean/Dry, Intact Exudate Amount: Scant Exudate Color: Reddish/Yellow Exudate Characteristic(s): Serosanguinous Integumentary Issue Intervention: Dressing Applied (Kailey, Hydrofera Blue, Aquacel, and off-loading foam dressing, followed by TCC) Shirley Wound Tissue: Calloused Shirley Wound Swelling: None Wound Bed Color: Red Wound Bed Constitution: Granulation Tissue (100%) Site Measurement - Head-to-Toe Length X Width X Depth (cm): 0.2cmx0.4cmx0.2cm Skin Integrity Problem Comment: Small, discrete wound on the plantar surface of patient's 1st toe. This toe has undergone partial amputation, and wound is on the plantar aspect of the 1st phalanx. Wound bed 100% granulation, no apparent necrosis. No significant erythema periwound, and no swelling observed. Callous was pared down w/ #15 scalpel by LINDSEY Hsu. Wound packed w/ Kailey collagen, followed bu Hydrofera Blue and Aquacel foam. Then an off-loading pad was contructed out of foam dressing, and secured w/ Conrad. New Total Contact Cast applied at the bedside by hung Mullins/ assistance from this author. Patient reminded to wear off-loading outer heel boot at all times when ambulating to prevent damage to cast. Patient tolerated procedure w/out complaint. [facility] for [facility] and replacement of TCC. Report given to chemistry teacherTAMAR Domingo.
[2017-07-31] MEDS: oxyCODONE IR 15 MG TAB PO PRN (15:38)
[2017-07-31] MEDS: OLANZapine 10 MG TAB PO SCH (19:33)
[2017-08-01] MEDS: OLANZapine DISINTEGR 10 MG TAB PO PRN (02:10)
[2017-08-01] MEDS: GABAPENTIN 400 MG CAP PO PRN (02:10)
[2017-08-01] MEDS: GABAPENTIN 400 MG CAP PO SCH ×4 (05:39→21:16)
[2017-08-01] MEDS: CHOLECALCIFEROL VIT D3 2,000 UNITS TAB/CAP PO SCH (08:26)
[2017-08-01] MEDS: ATORVASTATIN CALCIUM 40 MG TAB PO SCH (08:26)
[2017-08-01] MEDS: oxyCODONE CR 30 MG TAB PO SCH ×2 (08:26→21:13)
[2017-08-01] MEDS: ASPIRIN EC 81 MG TAB PO SCH (08:26)
[2017-08-01] MEDS: amLODIPine BESYLATE 5 MG TAB PO SCH (08:26)
[2017-08-01] MEDS: CARVEDILOL 3.125 MG TAB PO SCH ×2 (08:26→17:21)
[2017-08-01] MEDS: DULoxetine 20 MG CAP PO SCH ×2 (08:26→21:12)
[2017-08-01] MEDS: INSULIN GLARGINE 100 UNITS/ML UNIT SC SCH ×2 (08:27→21:14)
[2017-08-01] MEDS: INSULIN LISPRO 100 UNIT/ML SC SCH ×3 (08:33→17:21)
--- NOTE | 2017-08-01 11:56 | SOAPPROG ---
SOAP Progress Note Assessment/Plan: Assessment: Bipolar Disorder type 2 - depressed Cannabis Use Disorder Chronic Opioid Dependence IDDM with neuropathy, bilateral toe amputations Left foot wound, cast, walks with walker Hypertension, history of CAD Homeless, no supports in area Patient appears less angry, irritable, dysphoric and denies SI but has some reduced sleep and racing thoughts. Patient has multiple risk factors for suicide: WM, 62yo, no immediate supports , chronic pain, access to lethal medications (insulin, oxycodone). Patient reported SI to OD on medications prior to admit concurrent with financial and housing stressors and complex medical issues. Patient was taking up to 120mg/day of Oxycodone prior to admission. Plan: Patient is voluntary Continue Cymbalta 20mg BID for neuropathy and depression, increased 07/30/17. Discussed risk of mixed/bipolar symptoms. Increase Olanzapine 15mg QHS for bipolar disorder and insomnia, discussed risk of hyperglycemia Continue TID AC glucometers, BID Lantus, TID Humalog insulin Continue Oxycodone-CR/LA 30mg BID Oxycodone-IR 15mg once a day PRN wound care; PRN Tylenol; continue scheduled Gabapentin 800mg four times a day for neuropathy [facility]er to [facility] Patient reports PCP appointment with Dr. Anthony Ward - [facility] [phone] on 08/06/17 Supportive psychotherapy Coordinate discharge planning with son Monitor mood stability and risk of self harm 08/01/17 11:56 Subjective: CC: "better, trouble sleeping, a lot on my mind" Patient reports some racing thoughts and difficulty falling asleep last night. Reports benefit from Olanzapine. Reports racing thoughts are reduced from previous. Denies severe mood swings. Reports reduced agitation and irritability from previous. Reports anxiety about discharge due to homelessness and complex medical issues. Reports no thoughts of or suicide but at times feels hopeless. Denies feeling sedated or slowed by medication. Objective: Vital Signs Temp Pulse Resp BP Pulse Ox 36.3 C 62 16 120/62 97 08/01/17 04:43 08/01/17 08:26 08/01/17 04:43 08/01/17 08:26 08/01/17 04:43 Alert WM. Speech RRR. Cast left foot with walking boot, walker. Mood 'better ' affect reactive. Thoughts organized, tangential at times. Denies SI or HI. Denies AH or paranoia. Insight fair. Judgment appropriate. Staff report patient slept 5.5 hours. Able to attend some groups. Wound care nurse reports some continued skin/tissue breakdown and granulation in left foot/toe, no signs of infection, continue walking boot with cast. - Time Spent With Patient Time Spent With Patient: 30 minutes - Pending Discharge Pending Discharge Within 24 Hours: No Pending Discharge Within 48 Hours: No ICD10 Worksheet Patient Problems: Problems Problem Status Onset Bipolar 2 disorder Acute Suicidal ideation Acute Abdominal pain Acute Cellulitis Acute Diabetes mellitus Acute Diabetic foot ulcer Acute Hyperglycemia Acute Hyperkalemia Acute MRSA (methicillin resistant Staphylococcus aureus) Acute 03/30/16 Osteomyelitis of ankle or foot Acute
[2017-08-01] MEDS: oxyCODONE IR 15 MG TAB PO PRN (15:39)
[2017-08-01] MEDS: OLANZapine 10 MG TAB PO SCH (21:12)
[2017-08-01] MEDS: ACETAMINOPHEN 325 MG TAB PO PRN (22:12)
[2017-08-02] MEDS: oxyCODONE IR 15 MG TAB PO PRN (02:08)
[2017-08-02] MEDS: ACETAMINOPHEN 325 MG TAB PO PRN (02:09)
[2017-08-02] MEDS: OLANZapine DISINTEGR 10 MG TAB PO PRN ×2 (02:09→08:17)
[2017-08-02] MEDS: hydrOXYzine HCL 25 MG TAB PO PRN ×2 (02:09→20:59)
[2017-08-02] MEDS: GABAPENTIN 400 MG CAP PO SCH ×4 (06:35→20:58)
[2017-08-02] MEDS: amLODIPine BESYLATE 5 MG TAB PO SCH (08:11)
[2017-08-02] MEDS: CHOLECALCIFEROL VIT D3 2,000 UNITS TAB/CAP PO SCH (08:11)
[2017-08-02] MEDS: INSULIN LISPRO 100 UNIT/ML SC SCH ×3 (08:12→18:38)
[2017-08-02] MEDS: oxyCODONE CR 30 MG TAB PO SCH ×2 (08:12→21:00)
[2017-08-02] MEDS: CARVEDILOL 3.125 MG TAB PO SCH ×2 (08:12→16:39)
[2017-08-02] MEDS: ASPIRIN EC 81 MG TAB PO SCH (08:12)
[2017-08-02] MEDS: ATORVASTATIN CALCIUM 40 MG TAB PO SCH (08:12)
[2017-08-02] MEDS: DULoxetine 20 MG CAP PO SCH ×2 (08:12→21:00)
[2017-08-02] MEDS: INSULIN GLARGINE 100 UNITS/ML UNIT SC SCH ×2 (08:49→21:01)
--- NOTE | 2017-08-02 13:14 | SOAPPROG ---
SOAP Progress Note Assessment/Plan: Assessment: Bipolar Disorder type 2 - depressed Cannabis Use Disorder Chronic Opioid Dependence IDDM with neuropathy, bilateral toe amputations Left foot wound, cast, walks with walker Hypertension, history of CAD Homeless, no supports in area Patient appears less angry, less irritable, less dysphoric and denies SI. Patient has multiple risk factors for suicide: WM, 62yo, no immediate supports/ housing, chronic pain, access to lethal medications (insulin, oxycodone). Patient was taking up to 120mg/day of Oxycodone prior to admission. Plan: Patient is voluntary Continue Cymbalta 20mg BID for neuropathy and depression, increased 07/30/17. Discussed risk of mixed/bipolar symptoms. Continue Olanzapine 15mg QHS (incresed 08/01/17) for bipolar disorder and insomnia, discussed risk of hyperglycemia Continue TID AC glucometers, BID Lantus, TID Humalog insulin Continue Oxycodone-CR/LA 30mg BID Oxycodone-IR 15mg once a day PRN wound care; PRN Tylenol; continue scheduled Gabapentin 800mg four times a day for neuropathy Refer to [facility] Patient reports PCP appointment with Dr. Anthony Ward - [facility] [phone] on 08/06/17 Supportive psychotherapy regarding medical issues, lack of supports in [place] , homelessness Coordinate discharge planning with son Monitor mood stability and risk of self harm Encouraged patient to complete safety plan 08/02/17 13:14 Subjective: CC: "Much better" Patient reports sleeping 4 hours then got PRN and slept another 3 hours. Reports brief agitation and mood lability and brief dysphoria in past 24 hours but reports mood is much more stable. Reports feeling less hopeless and less agitated than previous. Reports goal is to get PCP visit and wound care appointment early next week then moving to [place] after obtaining SS check. Not willing to go into a SNF at this time. 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 Reports fear of developing suicidal thoughts if medical issues worsen. Denies thoughts of suicide today. Denies violent thoughts or paranoia. Objective: Vital Signs Temp Pulse Resp BP Pulse Ox 36.4 C 64 16 135/75 H 95 08/02/17 01:43 08/02/17 08:12 08/02/17 01:43 08/02/17 08:12 08/02/17 01:43 Alert WM, Speech RRR. Mood 'much better' affect euthymic and reactive. Thoughts organized. Denies SI or HI. Denies AH or paranoia. Limited insight, appropriate judgment. Staff report patient got PRN Zydis for agitation and insomnia over past 24 hours , briefly labile at times but cooperative and able to attend groups. - Time Spent With Patient Time Spent With Patient: 20 minutes - Pending Discharge Pending Discharge Within 24 Hours: No Pending Discharge Within 48 Hours: No ICD10 Worksheet Patient Problems: Problems Problem Status Onset Bipolar 2 disorder Acute Suicidal ideation Acute Abdominal pain Acute Cellulitis Acute Diabetes mellitus Acute Diabetic foot ulcer Acute Hyperglycemia Acute Hyperkalemia Acute MRSA (methicillin resistant Staphylococcus aureus) Acute 03/30/16 Osteomyelitis of ankle or foot Acute
--- NOTE | 2017-08-02 16:26 | SOAPPROG ---
SOAP Progress Note Assessment/Plan: Assessment: DM2 on insulin. BS starting to run low. Reduced glargine linsulin from 55 U BID to 50 U BID. Continue to monitor, continue sliding scale. 08/02/17 16:25 Subjective: Patient is concerned re low blood sugar. Says he's keeping candy in his pocket. Most recent blood sugar was 81. Objective: Vital Signs Temp Pulse Resp BP Pulse Ox 36.4 C 64 16 135/75 H 95 08/02/17 01:43 08/02/17 08:12 08/02/17 01:43 08/02/17 08:12 08/02/17 01:43 ICD10 Worksheet Patient Problems: Problems Problem Status Onset Bipolar 2 disorder Acute Suicidal ideation Acute Abdominal pain Acute Cellulitis Acute Diabetes mellitus Acute Diabetic foot ulcer Acute Hyperglycemia Acute Hyperkalemia Acute MRSA (methicillin resistant Staphylococcus aureus) Acute 03/30/16 Osteomyelitis of ankle or foot Acute
[2017-08-02] MEDS: OLANZapine 10 MG TAB PO SCH (20:59)
[2017-08-03] MEDS: GABAPENTIN 400 MG CAP PO PRN (02:20)
[2017-08-03] MEDS: hydrOXYzine HCL 25 MG TAB PO PRN (02:20)
[2017-08-03] MEDS: OLANZapine DISINTEGR 10 MG TAB PO PRN (02:20)
[2017-08-03] MEDS: ACETAMINOPHEN 325 MG TAB PO PRN (02:21)
[2017-08-03] MEDS: oxyCODONE IR 15 MG TAB PO PRN (02:21)
[2017-08-03] MEDS: GABAPENTIN 400 MG CAP PO SCH ×4 (05:44→19:46)
[2017-08-03] MEDS: ATORVASTATIN CALCIUM 40 MG TAB PO SCH (07:52)
[2017-08-03] MEDS: CARVEDILOL 3.125 MG TAB PO SCH ×2 (07:52→16:15)
[2017-08-03] MEDS: ASPIRIN EC 81 MG TAB PO SCH (07:52)
[2017-08-03] MEDS: CHOLECALCIFEROL VIT D3 2,000 UNITS TAB/CAP PO SCH (07:53)
[2017-08-03] MEDS: amLODIPine BESYLATE 5 MG TAB PO SCH (07:54)
[2017-08-03] MEDS: DULoxetine 20 MG CAP PO SCH ×2 (07:54→19:46)
[2017-08-03] MEDS: INSULIN GLARGINE 100 UNITS/ML UNIT SC SCH ×2 (07:55→19:44)
[2017-08-03] MEDS: oxyCODONE CR 30 MG TAB PO SCH ×2 (07:55→19:46)
[2017-08-03] MEDS: INSULIN LISPRO 100 UNIT/ML SC SCH ×3 (08:00→18:26)
--- NOTE | 2017-08-03 13:10 | SOAPPROG ---
SOAP Progress Note Assessment/Plan: Assessment: Bipolar Disorder type 2 - depressed Cannabis Use Disorder Chronic Opioid Dependence IDDM with neuropathy, bilateral toe amputations Left foot wound, cast, walks with walker Hypertension, history of CAD History of pancreatic nodule Homeless, no supports in area Patient appears less angry, less irritable, less dysphoric than during admission and currently denies SI. Patient has multiple risk factors for suicide: WM, 62yo, no immediate supports/ housing, chronic pain, access to lethal medications (insulin, oxycodone). Patient was taking up to 120mg/day of Oxycodone prior to admission. Plan: Patient is voluntary Continue Cymbalta 20mg BID for neuropathy and depression, increased 07/30/17 Continue Olanzapine 15mg QHS for bipolar disorder and insomnia Continue TID AC glucometers, BID Lantus, TID Humalog insulin Continue Oxycodone-CR/LA 30mg BID Oxycodone-IR 15mg once a day PRN wound care; PRN Tylenol; continue scheduled Gabapentin 800mg four times a day for neuropathy Refer to [facility] Patient reports PCP appointment with Dr. Anthony Ward - [facility] [phone] on 08/06/17; has wound care and GI follow Supportive psychotherapy regarding medical issues, lack of supports in [place] , homelessness Coordinate discharge planning with son, who lives in [place] and reportedly may be able to travel to [place] to care for patient Monitor mood stability and risk of self harm Encouraged patient to complete safety plan Planned discharge Sunday08/06/17 if stable over weekend 08/03/17 13:12 Subjective: CC: "Alright" Patient reports improved sleep, possibly 7 hours. Reports overall feeling more hopeful, more calm, and less irritable and less agitated than previous. Reports throughout adulthood having bipolar mood swings with '3 kids from 3 wives, moving around all the time.' Reports worsening depression in past few year mostly related to deteriorating medical health and mobility. Hopeful to be discharged Sunday if mood stable. Reports he set up PCP, GI, and wound care appointments and has a therapist at [facility]. Objective: Vital Signs Temp Pulse Resp BP Pulse Ox 36.5 C 63 16 130/86 H 94 08/03/17 07:14 08/03/17 07:52 08/03/17 07:14 08/03/17 07:54 08/03/17 07:14 Hospitalist met with patient and reduced scheduled BID long acting insulin. Staff report patient calm on unit and attending groups. Alert WM with left foot cast, pushes 4 wheeled walker. Speech RRR. Affect euthymic. Thoughts organized. Denies SI or HI or AH. Fair insight. Appropriate judgment. - Time Spent With Patient Time Spent With Patient: 10 minutes - Pending Discharge Pending Discharge Within 24 Hours: No Pending Discharge Within 48 Hours: No ICD10 Worksheet Patient Problems: Problems Problem Status Onset Bipolar 2 disorder Acute Suicidal ideation Acute Abdominal pain Acute Cellulitis Acute Diabetes mellitus Acute Diabetic foot ulcer Acute Hyperglycemia Acute Hyperkalemia Acute MRSA (methicillin resistant Staphylococcus aureus) Acute 03/30/16 Osteomyelitis of ankle or foot Acute
[2017-08-03] MEDS: OLANZapine 10 MG TAB PO SCH (19:45)
[2017-08-04] MEDS: GABAPENTIN 400 MG CAP PO PRN (01:41)
[2017-08-04] MEDS: hydrOXYzine HCL 25 MG TAB PO PRN ×4 (01:42→22:19)
[2017-08-04] MEDS: oxyCODONE IR 15 MG TAB PO PRN (01:43)
[2017-08-04] MEDS: SODIUM CL NASAL 45 ML BTL EACHNARE PRN ×2 (02:40→05:18)
[2017-08-04] MEDS: GABAPENTIN 400 MG CAP PO SCH ×4 (05:24→21:10)
[2017-08-04] MEDS: CHOLECALCIFEROL VIT D3 2,000 UNITS TAB/CAP PO SCH (08:26)
[2017-08-04] MEDS: ATORVASTATIN CALCIUM 40 MG TAB PO SCH (08:26)
[2017-08-04] MEDS: ASPIRIN EC 81 MG TAB PO SCH (08:26)
[2017-08-04] MEDS: DULoxetine 20 MG CAP PO SCH ×2 (08:26→21:09)
[2017-08-04] MEDS: oxyCODONE CR 30 MG TAB PO SCH ×2 (08:27→21:11)
[2017-08-04] MEDS: INSULIN GLARGINE 100 UNITS/ML UNIT SC SCH ×2 (08:28→21:10)
[2017-08-04] MEDS: CARVEDILOL 3.125 MG TAB PO SCH ×2 (08:29→18:10)
[2017-08-04] MEDS: amLODIPine BESYLATE 5 MG TAB PO SCH (08:33)
[2017-08-04] MEDS: INSULIN LISPRO 100 UNIT/ML SC SCH ×3 (08:38→16:46)
[2017-08-04] MEDS: OLANZapine DISINTEGR 10 MG TAB PO PRN (11:02)
--- NOTE | 2017-08-04 14:45 | SOAPPROG ---
SOAP Progress Note Assessment/Plan: Assessment: Per Dr. Rangel's notes: Assessment/Plan: Assessment: Bipolar Disorder type 2 - depressed Cannabis Use Disorder Chronic Opioid Dependence IDDM with neuropathy, bilateral toe amputations Left foot wound, cast, walks with walker Hypertension, history of CAD History of pancreatic nodule Homeless, no supports in area Patient appears less angry, less irritable, less dysphoric than during admission and currently denies SI. Patient has multiple risk factors for suicide: WM, 62yo, no immediate supports/ housing, chronic pain, access to lethal medications (insulin, oxycodone). Patient was taking up to 120mg/day of Oxycodone prior to admission. Plan: Patient is voluntary Continue Cymbalta 20mg BID for neuropathy and depression, increased 07/30/17 Continue Olanzapine 15mg QHS for bipolar disorder and insomnia Continue TID AC glucometers, BID Lantus, TID Humalog insulin Continue Oxycodone-CR/LA 30mg BID Oxycodone-IR 15mg once a day PRN wound care; PRN Tylenol; continue scheduled Gabapentin 800mg four times a day for neuropathy Refer to [facility] Patient reports PCP appointment with Dr. Anthony Ward - [facility] [phone] on 08/06/17; has wound care and GI follow Supportive psychotherapy regarding medical issues, lack of supports in [place] , homelessness Coordinate discharge planning with son, who lives in [place] and reportedly may be able to travel to [place] to care for patient Monitor mood stability and risk of self harm Encouraged patient to complete safety plan Planned discharge Sunday08/06/17 if stable over weekend Plan: 08/04/17 14:42 1. Patient says he is "pleased" with his treatment and denies any complaints or needs at current time. 2. Patient is looking forward to d/c on Sunday and has f/u appts in place. 3. Patient requests assistance with purchasing bus ticket for [place] for next week. 4. CCM - patient says he doesn't want to "change anything" Subjective: Met with patient, reviewed chart and d/w staff. Patient is using walker to ambulate. He says he feels "good" today and is "happy about" his d/c plan and f/ u appointments. He requests that "nothing be changed" to his current regimen. Objective: Vital Signs Temp Pulse Resp BP Pulse Ox 36.4 C 75 16 139/82 H 95 08/04/17 02:03 08/04/17 08:29 08/04/17 02:03 08/04/17 08:33 08/04/17 02:03 MSE: Mood: "Great" Affect: Euthymic TP: Linear, goal-directed TC: Denies any SI/HI, no evidence of psychosis Insight/Judgment: Fair - Time Spent With Patient Time Spent With Patient: 20" - Pending Discharge Pending Discharge Within 24 Hours: No Pending Discharge Within 48 Hours: No ICD10 Worksheet Patient Problems: Problems Problem Status Onset Bipolar 2 disorder Acute Suicidal ideation Acute Abdominal pain Acute Cellulitis Acute Diabetes mellitus Acute Diabetic foot ulcer Acute Hyperglycemia Acute Hyperkalemia Acute MRSA (methicillin resistant Staphylococcus aureus) Acute 03/30/16 Osteomyelitis of ankle or foot Acute
[2017-08-04] MEDS: OLANZapine 10 MG TAB PO SCH (21:10)
[2017-08-05] MEDS: GABAPENTIN 400 MG CAP PO PRN (00:59)
[2017-08-05] MEDS: oxyCODONE IR 15 MG TAB PO PRN (01:00)
[2017-08-05] MEDS: ACETAMINOPHEN 325 MG TAB PO PRN (04:06)
[2017-08-05] MEDS: GABAPENTIN 400 MG CAP PO SCH ×4 (07:14→21:13)
[2017-08-05] MEDS: amLODIPine BESYLATE 5 MG TAB PO SCH (08:09)
[2017-08-05] MEDS: CARVEDILOL 3.125 MG TAB PO SCH ×2 (08:10→17:54)
[2017-08-05] MEDS: DULoxetine 20 MG CAP PO SCH ×2 (08:10→21:13)
[2017-08-05] MEDS: oxyCODONE CR 30 MG TAB PO SCH ×2 (08:10→21:13)
[2017-08-05] MEDS: ATORVASTATIN CALCIUM 40 MG TAB PO SCH (08:10)
[2017-08-05] MEDS: CHOLECALCIFEROL VIT D3 2,000 UNITS TAB/CAP PO SCH (08:10)
[2017-08-05] MEDS: ASPIRIN EC 81 MG TAB PO SCH (08:10)
[2017-08-05] MEDS: INSULIN LISPRO 100 UNIT/ML SC SCH ×3 (08:11→16:39)
[2017-08-05] MEDS: INSULIN GLARGINE 100 UNITS/ML UNIT SC SCH ×2 (08:11→21:12)
[2017-08-05] MEDS: hydrOXYzine HCL 25 MG TAB PO PRN (13:48)
[2017-08-05] MEDS: OLANZapine DISINTEGR 10 MG TAB PO PRN (13:49)
--- NOTE | 2017-08-05 14:22 | SOAPPROG ---
SOAP Progress Note Assessment/Plan: Assessment: Per Dr. Rangel's notes: Assessment/Plan: Assessment: Bipolar Disorder type 2 - depressed Cannabis Use Disorder Chronic Opioid Dependence IDDM with neuropathy, bilateral toe amputations Left foot wound, cast, walks with walker Hypertension, history of CAD History of pancreatic nodule Homeless, no supports in area Patient appears less angry, less irritable, less dysphoric than during admission and currently denies SI. Patient has multiple risk factors for suicide: WM, 62yo, no immediate supports/ housing, chronic pain, access to lethal medications (insulin, oxycodone). Patient was taking up to 120mg/day of Oxycodone prior to admission. Plan: Patient is voluntary Continue Cymbalta 20mg BID for neuropathy and depression, increased 07/30/17 Continue Olanzapine 15mg QHS for bipolar disorder and insomnia Continue TID AC glucometers, BID Lantus, TID Humalog insulin Continue Oxycodone-CR/LA 30mg BID Oxycodone-IR 15mg once a day PRN wound care; PRN Tylenol; continue scheduled Gabapentin 800mg four times a day for neuropathy Refer to [facility] Patient reports PCP appointment with Dr. Anthony Ward - [facility] [phone] on 08/06/17; has wound care and GI follow Supportive psychotherapy regarding medical issues, lack of supports in [place] , homelessness Coordinate discharge planning with son, who lives in [place] and reportedly may be able to travel to [place] to care for patient Monitor mood stability and risk of self harm Encouraged patient to complete safety plan Planned discharge Sunday08/06/17 if stable over weekend Plan: 08/04/17 14:42 1. Patient says he is "pleased" with his treatment and denies any complaints or needs at current time. 2. Patient is looking forward to d/c on Sunday and has f/u appts in place. 3. Patient requests assistance with purchasing bus ticket for [place] for next week. 4. CCM - patient says he doesn't want to "change anything" 08/05/17 14:19 1. Patient has bus ticket for Sunday, 08/08, at 9am for [place]. 2. Patient needs to reschedule his OP appt for wound care on 08/08. 3. CCM - no changes Subjective: Met with patient, reviewed chart and d/w staff. Patient presents pleasant, cooperative, feeling "good." Denies any complaints and says he "doesn't know who that person was" who was thinking about suicide. He denies any thoughts, plan or intent to hurt himself or anyone else. Objective: Vital Signs Temp Pulse Resp BP Pulse Ox 34.4 C L 63 20 160/84 H 95 08/05/17 06:54 08/05/17 08:10 08/05/17 06:54 08/05/17 08:10 08/05/17 06:54 MSE: Mood: "Great" Affect: Cheerful, euthymic TP: Linear TC: Denies any SI/HI , no evidence of psychosis or alissa Insight/Judgment: Fair - Time Spent With Patient Time Spent With Patient: 20" - Pending Discharge Pending Discharge Within 24 Hours: No Pending Discharge Within 48 Hours: No ICD10 Worksheet Patient Problems: Problems Problem Status Onset Bipolar 2 disorder Acute Suicidal ideation Acute Abdominal pain Acute Cellulitis Acute Diabetes mellitus Acute Diabetic foot ulcer Acute Hyperglycemia Acute Hyperkalemia Acute MRSA (methicillin resistant Staphylococcus aureus) Acute 03/30/16 Osteomyelitis of ankle or foot Acute
[2017-08-05 17:20] VITALS: RESP 12; TEMP 98.6
[2017-08-05] MEDS: OLANZapine 10 MG TAB PO SCH (21:12)
[2017-08-06] MEDS: oxyCODONE IR 15 MG TAB PO PRN (01:35)
[2017-08-06] MEDS: GABAPENTIN 400 MG CAP PO SCH ×2 (05:58→11:47)
[2017-08-06] MEDS: CARVEDILOL 3.125 MG TAB PO SCH (08:09)
[2017-08-06] MEDS: amLODIPine BESYLATE 5 MG TAB PO SCH (08:09)
[2017-08-06] MEDS: ATORVASTATIN CALCIUM 40 MG TAB PO SCH (08:09)
[2017-08-06] MEDS: CHOLECALCIFEROL VIT D3 2,000 UNITS TAB/CAP PO SCH (08:09)
[2017-08-06] MEDS: DULoxetine 20 MG CAP PO SCH (08:09)
[2017-08-06] MEDS: INSULIN LISPRO 100 UNIT/ML SC SCH ×2 (08:11→11:48)
[2017-08-06] MEDS: ASPIRIN EC 81 MG TAB PO SCH (08:11)
[2017-08-06] MEDS: INSULIN GLARGINE 100 UNITS/ML UNIT SC SCH (08:11)
[2017-08-06] MEDS: oxyCODONE CR 30 MG TAB PO SCH (08:16)
[2017-08-06 09:23] VITALS: BP 146/74; PULSE 91; O2SAT 94
--- NOTE | 2017-08-06 11:43 | BDS ---
[f rep st] BEHAVIORAL HEALTH DISCHARGE SUMMARY IDENTIFICATION: This is a 62-year-old white male who is homeless, who has numerous medical problems. He is a former clinical psychologist. He was transferred to the unit from [facility]. REASON FOR ADMISSION: The patient reportedly called the police and said he was suicidal and was going to overdose on his medications, including his antihypertensives. It was unclear if he had actually overdosed on medications or not. He was admitted through the ER to an inpatient medical floor and monitored and then transferred to the inpatient Behavioral Health Unit on an M1 hold due to concerns he was a danger to himself. BRIEF PSYCHIATRIC HISTORY: The patient reports no prior suicide attempts. He had past psychiatric hospitalizations twice at [facility] in [place] approximately 4 years ago. He also was hospitalized at [facility] once for depression 1-2 years ago and received ECT treatments. The patient reports a long history of depressive episodes alternating with hypomania for many years. He has also been smoking cannabis regularly since moving to [place] 3 years ago. The patient has chronic opioid dependence for chronic pain. He has severe neuropathy in his feet with a history of toe amputations. He also has a history of right hip replacement. He reports he has been on chronic opiates for many years including fentanyl, Opana, morphine, and oxycodone. According to the prescription drug monitoring program, the patient was taking OxyContin 30 mg twice a day and oxycodone immediate release 15 mg 4 times a day p.r.n. for pain from his primary care provider Dr. Ward. ALLERGIES: Daptomycin and vancomycin. MEDICAL HISTORY: The patient has a history of right hip replacement. He has chronic neuropathy in his feet. He has a history of toe amputations on both feet. Recent toe amputation on the left foot occurred approximately 4 months ago. He has been receiving wound care for this and has a protective cast and a walking boot on his left foot. The patient also has a history of hypertension, coronary artery disease, gastroesophageal reflux disease, vitamin D deficiency, chronic back and hip pain and foot pain, and chronic insulin-dependent diabetes. He also has a history of pancreatic nodule that was biopsied in the past. HOSPITAL COURSE: The patient was admitted to the inpatient unit on an M1 hold. The patient agreed to stay in the hospital as a voluntary patient. The patient gave a history of bipolar disorder type 2. He reports his current depressive episode was related to homelessness, lack of supports, severe medical problems including chronic neuropathic pain in his feet, toe amputations , wound care in his left foot, difficulty caring for himself. The patient was agreeable to start Cymbalta for neuropathic pain and depression. This was slowly increased to 20 mg twice a day. He had received p.r.n. Zyprexa Zydis for agitation due to having an agitated depression. He reported past episodes of prolonged hypomania associated with erratic behavior, racing thoughts, irritability, and insomnia. He was given information about Abilify as a mood stabilizer and initially started on 2mg QAM along with PRN Zydis. The patient reported more benefit from p.r.n. Zyprexa. So the Abilify was discontinued, and the Zyprexa was increased up to 15 mg at night. This improved with agitation, irritability, hopelessness, racing thoughts, and sleep. The patient initially presented as very dysphoric, agitated, irritable, angry, and hopeless. The patient was assessed to have multiple risk factors for suicide, including the fact that he was a 62-year-old white male without any close supports. He also had chronic pain and access to both insulin and opiates, which could be lethal with overdose. The patient's glucometers were monitored on the unit. His long-acting insulin, the Lantus, was reduced to 50 mg twice a day due to having borderline low blood sugars. He was given short-acting insulin lispro 3 units t.i.d. with meals. The patient was continued on his vitamin D for vitamin D deficiency, gabapentin for neuropathy. He was on high dose of gabapentin, 800 mg 4 times a day for neuropathy. He was also continued on his aspirin, amlodipine, carvedilol, and Lipitor. The patient was initially prescribed oxycodone immediate release 15 mg p.o. q.4 hours p.r.n. for pain. It is unclear if the patient had consistent compliance with the long-acting oxycodone 30 mg b.i.d. that he had been prescribed prior to admission. The patient was taking the immediate release 15 mg oxycodone every 4 hours for severe pain up to 5 or 6 times a day and so was transitioned back to OxyContin, which he had been taking prior to admission 30 mg twice a day. The patient did not appear to have opiate withdrawal other than anxiety and insomnia. The patient on the unit ambulated with a walking boot on his left foot covering a cast. He had a 4-wheeled walker. The patient had a marked improvement in his mood and affect. He reported improvements in sleep, reduction in his depressed mood, reduction in his irritability, and remission of his suicidal thinking. The patient denied homicidal or violent thoughts during the hospitalization or any psychotic symptoms. The patient did allow care coordination with his son who lives in [place]. Apparently, the patient needs to travel to [place] to meet with his son and, after that, he and his son may or may not travel back to [place]. The patient was noted to be calm and appropriate and eating well and sleeping well prior to discharge. He had completed a safety plan outlining his strengths, coping skills, and symptoms to monitor prior to discharge. The patient was agreeable to be discharged directly to his primary care appointment with Dr. Ward to get his opiate pain medications as well as review his medical medication list. So the patient was agreeable to only receive the psychiatric medications upon discharge. The patient did have a therapist at [facility] the patient contacted. The patient will be given a psychiatrist appointment following his next therapy appointment, which is the day after discharge. On the unit, patient repeatedly declined to be referred to a senior care facility. The patient also requested that the psychiatry team not notify his primary care provider of his mental health problems. CONDITION ON DISCHARGE: The patient has a positive attitude toward discharge. He is an ambulatory white male with a walking boot on his left foot as well as a cast on his left foot. He walks with a 4-wheeled walker. There is no stiffness or tremors. His speech is regular rate and rhythm. His thoughts are organized. His mood is "much better." His affect is euthymic, pleasant, and reactive. He denies any thoughts to hurt himself. He denies any thoughts to hurt others. He denies auditory hallucinations or paranoia. His cognition is intact. He scored 29/30 on the SLUMS exam after admission to the unit. He has fair insight and appropriate judgment. CONSULTS: The patient was seen by the Wound Care Service on the inpatient unit on July 31, 2017. They recommended continued dry dressing to his left foot where he has a small wound from a toe amputation to be protected with a cast as well as a walking boot with limited weightbearing on the left side. The patient was seen by Dr. Garcia, the hospitalist, on both July 27, 2017, and August 02, 2017, for medical management of his insulin-dependent diabetes. PROCEDURES: The only procedure was the wound care assessment on July 31 where his cast was replaced and his dressing change was replaced on his left foot. ADVANCE DIRECTIVES: The patient does not have an Advance Directive and does not have any supports in the area to be medical [id number]. METABOLIC SYNDROME: The patient has insulin-dependent diabetes. He was warned about the risk of olanzapine worsening his blood sugars as well as causing elevated cholesterol. The patient is currently on Lipitor for elevated cholesterol as well as insulin for his diabetes. ALCOHOL USE DISORDER: The patient denied any regular use of alcohol. He also denied nicotine use disorder. CANNABIS USE DISORDER: patient was counseled that cannabis can cause anxiety, panic attacks, psychosis, and cognitive impairment. LABS: On July 25, he had a white blood cell count 8.0, hemoglobin 16.0, platelet count 169. On July 25, 2017, he had a sodium 140, potassium 4.2, creatinine 1.0. Prior to admission, the patient had normal liver function tests in February 2017. Hemoglobin A1c of 8.3 in February 2017. July 25 , he had triglycerides 233, HDL 31, LDL 65. B12 662. TSH 1.6 was in August 2016. His urine drug screen prior to admission was positive for cannabis and opiates. DISCHARGE DIAGNOSES: Bipolar disorder type 2, most recent episode depressed; Cannabis use disorder, severe; Homelessness, Lack of supports; Chronic opioid dependence for chronic pain; History of right hip replacement; Insulin-dependent diabetes with neuropathy; Bilateral toe amputations, Wound to left foot with dressing and cast and walking boot; History of hypertension; Hyperlipidemia; History of coronary artery disease; History of pancreatic nodule. DISCHARGE MEDICATIONS: Cymbalta 20 mg p.o. b.i.d., prescription is for 1 month with 1 refill, bubble pack; Olanzapine 15 mg p.o. q.h.s., prescription is for 1 month with 1 refill, bubble pack. The patient's medical medications will be refilled by his medical doctor. They include the following discharge medical medications: Lipitor 40 mg p.o. daily, carvedilol 6.25 mg p.o. b.i.d., amlodipine 10 mg p.o. daily, aspirin 81 mg p.o. daily, gabapentin 800 mg by mouth 4 times a day, OxyContin which is continuous release oxycodone 30 mg by mouth twice a day, oxycodone immediate release 15 mg p.o. once daily p.r.n. for severe pain, famotidine 20 mg p.o. b.i.d. p.r.n. for gastroesophageal reflux disease, glargine insulin which is long-acting insulin 50 units subcu twice a day, lispro insulin which is short-acting insulin 3 units subcu t.i.d. with meals, vitamin D 5000 units by mouth daily. DISPOSITION: The patient is leaving the unit in a taxi to go directly to his primary care appointment with Dr. Ward. Patient will then access his Social Security Disability funds to get a motel until he can travel to [place] to be near his son. REFERRALS: The patient has an appointment this afternoon with Dr. Ward for medical management of his complex medical issues and refills for all of his medical medications. The patient has an appointment tomorrow for a therapy appointment at [facility] where he can request a psychiatrist appointment to manage his psychiatric medications. Reportedly there is a 2 month waiting list for patients with Medicare to see a psychiatrist. The patient also has a wound care appointment on Sunday, August 08, 2017, for his left foot. LEGAL STATUS: The patient was admitted on an M1 hold, but agreed to stay in the hospital as a voluntary patient. He will be discharged to be receiving outpatient treatment on a voluntary basis. OTHER INSTRUCTIONS: The patient is on 2000 kilocalorie low-carbohydrate diet. He is recommended to check glucometers t.i.d. before meals. The patient is to have limited or no weight-bearing on the left foot if possible, continue wearing a cast with a walking boot, and to use a 4-wheeled walker. He was counseled to not drive while taking sedating medications including Olanzapine, Gabapentin, Oxycontin. /[id number]/MODL MTDD
== END 2017-08-06 13:21 | disposition home or self-care (01) | DRG 885 ==
LOC: BBEH 10:56
PROVIDERS: ADMIT Psychiatry & Neurology Psychiatry; ATTEND Psychiatry & Neurology Psychiatry
DX: F31.4 Bipolar disorder, current episode depressed, severe, without psychotic features (principal); F12.90 Cannabis use, unspecified, uncomplicated; E11.621 Type 2 diabetes mellitus with foot ulcer; L97.509 Non-pressure chronic ulcer of other part of unspecified foot with unspecified severity; E11.40 Type 2 diabetes mellitus with diabetic neuropathy, unspecified; G89.29 Other chronic pain; F11.20 Opioid dependence, uncomplicated; E78.5 Hyperlipidemia, unspecified; I10 Essential (primary) hypertension; I25.10 Atherosclerotic heart disease of native coronary artery without angina pectoris; K21.9 Gastro-esophageal reflux disease without esophagitis; Z59.0 Homelessness; Z79.4 Long term (current) use of insulin; Z89.429 Acquired absence of other toe(s), unspecified side; Z96.641 Presence of right artificial hip joint
CPT/HCPCS: J1815

== ENCOUNTER 2017-08-13 10:08 | Emergency (ER) | payer OTHER, MEDICAID ==
[2017-08-13 10:17] VITALS: O2SAT 93
[2017-08-13] MEDS ORDERED: IPRATROPIUM/ALBUTEROL 3 ML DEYVIAL IH ONE (10:39)
[2017-08-13] MEDS ORDERED: NS 1,000 ML IV ONE (10:39)
--- NOTE | 2017-08-13 10:39 | EDPHY ---
H & P Time Seen by Provider: 08/13/17 10:34 HPI/ROS: Chief complaint. "I think I have pneumonia" HPI. 62-year-old male the with complaint of congestion for the last 2-3 days. Pain with coughing. Cough is nonproductive. No fever chills or achiness. No recent travel or known exposures to Infectious Disease. He does have a history of pneumonia. No abdominal pain including vomiting or diarrhea. No unusual leg pain or swelling. Chest pain a present with cough. ROS Constitutional. no fever/chills, no weakness Eyes. no problems with vision ENT. Congestion Cardiovascular. Chest pain with cough Respiratory. No shortness of breath but cough and congestion Abdominal. no abdominal pain, no nausea/vomiting, no diarrhea . no problems urinating MS. no calf pain/swelling, no neck/back pain, no joint pain Skin. no rash Lymph. no swollen glands Neuro. no headache, no dizziness, no difficulty walking or with speech Past Medical/Surgical History: Depression, diabetes, ECT therapy inward, neuropathy, hypertension, hip replacement, bipolar illness Social History: Single, daily smoker, no alcohol Smoking Status: Light smoker Physical Exam: General Appearance: Alert well-developed male mild distress vital signs are stable Eyes: Pupils equal and round no pallor or injection. ENT, Mouth: Mucous membranes are moist. Respiratory: There are no retractions, mild inspiratory expiratory rhonchi Cardiovascular: Regular rate and rhythm. Gastrointestinal: Abdomen is soft and nontender, no masses, bowel sounds normal. Neurological: Awake and alert, sensory and motor exams grossly normal. Skin: Warm and dry, no rashes. Musculoskeletal: Neck is supple nontender. Extremities symmetrical, full range of motion. Psychiatric: Patient is oriented X 3, there is no agitation. Constitutional: Initial Vital Signs Temperature (C) 36.4 C 08/13/17 10:12 Heart Rate 68 08/13/17 10:12 Respiratory Rate 18 08/13/17 10:12 Blood Pressure 137/69 H 08/13/17 10:12 O2 Sat (%) 93 08/13/17 10:12 O2 Delivery Mode Room Air Allergies/Adverse Reactions: daptomycin Allergy (Severe, Verified 08/13/17 10:14) pulmonary hypersensitivity vancomycin Allergy (Verified 08/13/17 10:14) Fever Home Medications: Medication Instructions Recorded Carvedilol [Coreg (*)] 6.25 mg PO BIDMEAL 02/08/17 amLODIPine BESYLATE [Norvasc 10 mg 10 mg PO DAILY 02/08/17 (*)] Aspirin EC [Aspirin EC 81 mg (*)] 81 mg PO DAILY tab 08/06/17 Atorvastatin Calcium [Lipitor 40 40 mg PO DAILY tab 08/06/17 mg (*)] Cholecalciferol Vit D3 [Vitamin D3 5,000 units PO DAILY each 08/06/17 2000 units tab (OTC)] DULoxetine [Cymbalta] 20 mg PO BID 30 Days cap 08/06/17 Famotidine [Pepcid 20 MG (*)] 20 mg PO BID PRN tab 08/06/17 Gabapentin [Neurontin 400 MG (*)] 800 mg PO QID cap 08/06/17 Insulin Glargine [Lantus Syringe] 50 units SC BID unit 08/06/17 Insulin Lispro [HumaLOG LISPRO] 3 unit SC TIDMEAL unit 08/06/17 OLANZapine [OLANZapine (*)] 15 mg PO HS 30 Days tab 08/06/17 oxyCODONE IR [Oxycodone Ir (*)] 15 mg PO DAILY PRN tab 08/06/17 Albuterol Sulfate [PROVENTIL HFA] 2 puffs IH Q4-6PRN PRN #1 08/13/17 [email or web address] Oseltamivir Phosphate [Tamiflu 75 75 mg PO BID #10 cap 08/13/17 mg (*)] Medical Decision Making - Diagnostics Imaging Results: One-view chest x-ray interpreted by me shows slight I basilar infiltrates versus atelectasis. Procedures: IV normal saline. Monica beckwith ED Course/Re-evaluation: Patient has flu B. Re-evaluation at 11:45 a.m. Patient and I discussed imaging and lab results. We discussed treatment plan including criteria for return importance of follow-up further evaluation. He expresses understanding and agreement Differential Diagnosis: I considered pneumonia, bronchitis, viral syndrome, bacterial etiology. Patient has flu B - Data Points Laboratory Results: Laboratory Results 08/13/17 10:44 08/13/17 10:44 08/13/17 08/13/17 08/13/17 10:45 10:44 10:44 WBC 8.35 10^3/uL 10^3/uL (3.80-9.50) RBC 5.39 10^6/uL 10^6/uL (4.40-6.38) Hgb 15.2 g/dL g/dL (13.7-17.5) Hct 43.7 % % (40.0-51.0) MCV 81.1 fL L fL (81.5-99.8) MCH 28.2 pg pg (27.9-34.1) MCHC 34.8 g/dL g/dL (32.4-36.7) RDW 15.2 % % (11.5-15.2) Plt Count 155 10^3/uL 10^3/uL (150-400) MPV 11.7 fL fL (8.7-11.7) Neut % (Auto) 66.0 % % (39.3-74.2) Lymph % (Auto) 19.6 % % (15.0-45.0) [place] % (Auto) 13.8 % H % (4.5-13.0) Eos % (Auto) 0.0 % L % (0.6-7.6) Baso % (Auto) 0.2 % L % (0.3-1.7) Nucleat RBC Rel Count 0.0 % % (0.0-0.2) Absolute Neuts (auto) 5.51 10^3/uL 10^3/uL (1.70-6.50) Absolute Lymphs (auto) 1.64 10^3/uL 10^3/uL (1.00-3.00) Absolute Monos (auto) 1.15 10^3/uL H 10^3/uL (0.30-0.80) Absolute Eos (auto) 0.00 10^3/uL L 10^3/uL (0.03-0.40) Absolute Basos (auto) 0.02 10^3/uL 10^3/uL (0.02-0.10) Absolute Nucleated RBC 0.00 10^3/uL 10^3/uL (0-0.01) Immature Gran % 0.4 % % (0.0-1.1) Immature Gran # 0.03 10^3/uL 10^3/uL (0.00-0.10) Sodium 137 mEq/L mEq/L (135-145) Potassium 3.9 mEq/L mEq/L (3.5-5.2) Chloride 96 mEq/L L mEq/L (97-110) Carbon Dioxide 30 mEq/l mEq/l (22-31) Anion Gap 11 mEq/L mEq/L (8-16) BUN 17 mg/dL mg/dL (7-23) Creatinine 0.9 mg/dL mg/dL (0.7-1.3) Estimated GFR > 60 Glucose 179 mg/dL H mg/dL (70-100) Calcium 8.1 mg/dL L mg/dL (8.5-10.4) Troponin I < 0.012 ng/mL ng/mL (0.000-0.034) Nasal Influenza A PCR NEGATIVE FOR FLU A (NEGATIVE) Nasal Influenza B PCR FLU B DETECTED H (NEGATIVE) RSV (PCR) NEGATIVE FOR RSV (NEGATIVE) Medications Given: Discontinued Medications Albuterol/Ipratropium (Duoneb) 3 ml IH EDNOW ONE Stop: 08/13/17 10:40 Last Admin: 08/13/17 10:46 Dose: 3 ml Sodium Chloride (Ns) 1,000 mls @ 0 mls/hr IV ONCE ONE; Wide Open PRN Reason: Protocol Stop: 08/13/17 10:40 Last Admin: 08/13/17 10:46 Dose: 1,000 mls Departure - Departure Disposition: Home, Routine, Self-Care Clinical Impression: Influenza Condition: Good Instructions: Influenza (ED) Additional Instructions: Drink plenty of fluids a hydrated. Albuterol inhaler using 2 puffs every 4-6 hours to help with breathing and cough. Tamiflu to help with Influenza. If you are running a fever especially in the evening use Tylenol 1000 mg every 4 -6 hours. Return for worsening breathing, fever. Recheck in 2 days if not improved Referrals: Anthony Ward, DO [Primary Care Provider] - 2-3 days, if not improved Prescriptions: Albuterol Sulfate [PROVENTIL HFA] 2 puffs IH Q4-6PRN PRN #1 [email or web address] PRN Reason: Short Of Breath/Dyspnea Oseltamivir Phosphate [Tamiflu 75 mg (*)] 75 mg PO BID #10 cap
[2017-08-13 10:52] LABS: PLATELET COUNT 155 10^3/uL (150-400)
[2017-08-13 12:07] VITALS: BP 149/87; PULSE 64; RESP 20; TEMP 99.5
== END 2017-08-13 12:07 | disposition home or self-care (01) ==
DX: J10.1 Influenza due to other identified influenza virus with other respiratory manifestations (principal); E86.9 Volume depletion, unspecified; F17.200 Nicotine dependence, unspecified, uncomplicated; I10 Essential (primary) hypertension; E11.9 Type 2 diabetes mellitus without complications; Z79.4 Long term (current) use of insulin; Z79.82 Long term (current) use of aspirin

== ENCOUNTER 2017-09-02 09:57 | Emergency (ER) | payer OTHER, MEDICAID ==
--- NOTE | 2017-09-02 10:18 | EDPHY ---
HPI/HX/ROS/PE/MDM Narrative: CHIEF COMPLAINT: Chest Pain HPI: This patient is a 62 y/o male complaining of chest pain. This began around 2am this morning. The patient was already awake when this discomfort began. His pain feels sharp and is midsternal. It recurs every 25-30 minutes. He has not had similar pain in a long time. He denies any further symptoms including any new swelling in his legs. He was recently admitted to [facility] for depression and was discharged Sunday, two days ago. He states he cannot find any of his heart medicine or blood pressure medicine since discharge and has not taken any of his medications since Sunday. No fever, shortness of breath, or other associated symptoms. REVIEW OF SYSTEMS: Aside from elements discussed in the HPI, a comprehensive 10-point review of systems was reviewed and is negative. PMH: Depression s/p ECT therapy. Diabetes Mellitus Type II. Hypertension. GERD. Neuropathy. Appendectomy. SOCIAL HISTORY: Single, daily tobacco use, no alcohol use. PHYSICAL EXAM: General:Patient is alert, in no acute distress. ENT:Eyes are normal to inspection. ENT inspection normal. Neck: Normal inspection. Full range of motion. Respiratory:No respiratory distress. Breath sounds normal bilaterally. Cardiovascular: Regular rate and rhythm. Strong peripheral pulses. Normal cap refill. Abdomen:The abdomen is nontender to palpation. There are no peritoneal signs. There are normal bowel sounds. Back: Normal to inspection. No tenderness to palpation. Skin: Normal color. No rash. Warm and dry. Extremities: 1-2+ pitting edema bilaterally. Full range of motion. Neuro: Oriented x3. Normal motor function. Normal sensory function. ED Course: 62 y/o male with history of hypertension and DM Type II presents with midsternal chest pain onset this morning after two days of not taking his antihypertensive medication. Plan for EKG, chest x-ray, labs including CBC, chemistries, troponin. EKG was ordered and interpreted by myself. Please see [email or web address] system for official reading. Sinus rhythm, rate 81. Compared to prior EKG 07/25/17. Reviewed laboratory studies. Troponin negative. BGL elevated at 231. Patient is a known type II diabetic. Chest x-ray negative for acute processes. Reviewed results with patient. Plan to discharge home in good condition. Follow up and return precautions discussed. He is comfortable with this plan. MDM: This patient presents with atypical chest pain in the setting of numerous cardiac risk factors and recent discharge from an inpatient psychiatric facility. We performed an extensive workup on this patient and all tests are negative for acute disease such as ACS, PNA, TAD, PTx. I see no evidence for PE. I informed the patient of these results and offered him observation admit to the hospital but he declines. He plans on boarding a bus back home to [place] tomorrow and is not interested in further medical care at this time. - Data Points Imaging Results: Imaging Impressions Chest X-Ray 09/02/17 10:10 Impression: No significant radiographic abnormality. Specifically, a source for chest pain is not identified. Imaging: I viewed and interpreted images myself Laboratory Results: Laboratory Results 09/02/17 10:15 09/02/17 10:15 09/02/17 09/02/17 10:15 10:15 WBC 9.06 10^3/uL 10^3/uL (3.80-9.50) RBC 5.49 10^6/uL 10^6/uL (4.40-6.38) Hgb 15.4 g/dL g/dL (13.7-17.5) Hct 45.1 % % (40.0-51.0) MCV 82.1 fL fL (81.5-99.8) MCH 28.1 pg pg (27.9-34.1) MCHC 34.1 g/dL g/dL (32.4-36.7) RDW 15.3 % H % (11.5-15.2) Plt Count 165 10^3/uL 10^3/uL (150-400) MPV 11.1 fL fL (8.7-11.7) Neut % (Auto) 76.3 % H % (39.3-74.2) Lymph % (Auto) 16.7 % % (15.0-45.0) [place] % (Auto) 5.4 % % (4.5-13.0) Eos % (Auto) 0.9 % % (0.6-7.6) Baso % (Auto) 0.4 % % (0.3-1.7) Nucleat RBC Rel Count 0.0 % % (0.0-0.2) Absolute Neuts (auto) 6.91 10^3/uL H 10^3/uL (1.70-6.50) Absolute Lymphs (auto) 1.51 10^3/uL 10^3/uL (1.00-3.00) Absolute Monos (auto) 0.49 10^3/uL 10^3/uL (0.30-0.80) Absolute Eos (auto) 0.08 10^3/uL 10^3/uL (0.03-0.40) Absolute Basos (auto) 0.04 10^3/uL 10^3/uL (0.02-0.10) Absolute Nucleated RBC 0.00 10^3/uL 10^3/uL (0-0.01) Immature Gran % 0.3 % % (0.0-1.1) Immature Gran # 0.03 10^3/uL 10^3/uL (0.00-0.10) Sodium 143 mEq/L mEq/L (135-145) Potassium 4.3 mEq/L mEq/L (3.5-5.2) Chloride 104 mEq/L mEq/L (97-110) Carbon Dioxide 27 mEq/l mEq/l (22-31) Anion Gap 12 mEq/L mEq/L (8-16) BUN 12 mg/dL mg/dL (7-23) Creatinine 0.7 mg/dL mg/dL (0.7-1.3) Estimated GFR > 60 Glucose 231 mg/dL H mg/dL (70-100) Calcium 9.2 mg/dL mg/dL (8.5-10.4) Troponin I < 0.012 ng/mL ng/mL (0.000-0.034) General Time Seen by Provider: 09/02/17 10:04 Initial Vital Signs: Initial Vital Signs Temperature (C) 37 C 09/02/17 10:00 Heart Rate 87 09/02/17 10:00 Respiratory Rate 20 09/02/17 10:00 Blood Pressure 161/87 H 09/02/17 10:00 O2 Sat (%) 96 09/02/17 10:00 O2 Delivery Mode Room Air Allergies/Adverse Reactions: daptomycin Allergy (Severe, Verified 09/02/17 10:00) pulmonary hypersensitivity vancomycin Allergy (Verified 09/02/17 10:00) Fever Home Medications: Medication Instructions Recorded Carvedilol [Coreg (*)] 6.25 mg PO BIDMEAL 02/08/17 amLODIPine BESYLATE [Norvasc 10 mg 10 mg PO DAILY 02/08/17 (*)] Aspirin EC [Aspirin EC 81 mg (*)] 81 mg PO DAILY tab 08/06/17 Atorvastatin Calcium [Lipitor 40 40 mg PO DAILY tab 08/06/17 mg (*)] Cholecalciferol Vit D3 [Vitamin D3 5,000 units PO DAILY each 08/06/17 2000 units tab (OTC)] DULoxetine [Cymbalta] 20 mg PO BID 30 Days cap 08/06/17 Famotidine [Pepcid 20 MG (*)] 20 mg PO BID PRN tab 08/06/17 Gabapentin [Neurontin 400 MG (*)] 800 mg PO QID cap 08/06/17 Insulin Glargine [Lantus Syringe] 50 units SC BID unit 08/06/17 Insulin Lispro [HumaLOG LISPRO] 3 unit SC TIDMEAL unit 08/06/17 OLANZapine [OLANZapine (*)] 15 mg PO HS 30 Days tab 08/06/17 oxyCODONE IR [Oxycodone Ir (*)] 15 mg PO DAILY PRN tab 08/06/17 Albuterol Sulfate [PROVENTIL HFA] 2 puffs IH Q4-6PRN PRN #1 08/13/17 hfa.aer.ad Oseltamivir Phosphate [Tamiflu 75 75 mg PO BID #10 cap 08/13/17 mg (*)] Departure - Departure Disposition: Home, Routine, Self-Care Clinical Impression: Chest pain Condition: Good Instructions: Chest Pain (ED) Additional Instructions: Follow-up with your primary doctor within 72 hours. Return to the Emergency Department for fever, chest pain, shortness of breath, increasing pain or other worsening of condition. Follow up with a auto crane driver for further testing, as soon as possible, within one week. We would be happy to reevaluate you and observe you in the hospital at any time. Referrals: Anthony Ward DO [Primary Care Provider] - As per Instructions Nick Ervin MD [Medical Doctor] - As per Instructions Report Scribed for: Omar Good Report Scribed by: Alexa Farley Date of Report: 09/02/17 Time of Report: 10:18 Physician Review and Approval Statement: Portions of this note were transcribed by an ED scribe. I personally performed the history, physical exam, and medical decision making; and confirm the accuracy of the information in the transcribed note.
--- NOTE | 2017-09-02 10:19 | CPEKG ---
Heart Rate: 81 RR Interval: 741 P-R Interval: 180 QRSD Interval: 96 QT Interval: 396 QTC Interval: 460 P [place]: 71 QRS [place]: -19 T Wave [place]: 58 EKG Severity - ABNORMAL ECG - EKG Impression: SINUS RHYTHM EKG Impression: BORDERLINE LEFT AXIS DEVIATION Electronically Signed By: Omar Good 02-Sep-2017 14:35:35
[2017-09-02 10:26] LABS: PLATELET COUNT 165 10^3/uL (150-400)
--- NOTE | 2017-09-02 11:15 | CPEKG ---
Heart Rate: 77 RR Interval: 779 P-R Interval: 176 QRSD Interval: 98 QT Interval: 412 QTC Interval: 467 P [place]: 75 QRS [place]: -14 T Wave [place]: 56 EKG Severity - NORMAL ECG - EKG Impression: SINUS RHYTHM Electronically Signed By: Omar Good 02-Sep-2017 14:35:28
[2017-09-02 11:44] VITALS: BP 156/78; PULSE 78; RESP 18; TEMP 98.6; O2SAT 96
== END 2017-09-02 11:44 | disposition home or self-care (01) ==
DX: R07.9 Chest pain, unspecified (principal); I10 Essential (primary) hypertension; E11.9 Type 2 diabetes mellitus without complications; F17.200 Nicotine dependence, unspecified, uncomplicated; Z79.4 Long term (current) use of insulin; Z79.82 Long term (current) use of aspirin